=== PATIENT | female | born 1980 | race Caucasian/White ===

== ENCOUNTER 2024-04-17 14:00 | Outpatient (OUT) | payer MEDICAID, SELFPAY ==
[2024-04-17 14:32] LABS: Basophils Absolute Auto 0.1 10^3/uL (0.0-0.1); Eosinophils Percent Auto 0.4 % (0.9-7.0); Hematocrit 39.1 % (36.0-48.0); Hemoglobin 12.9 g/dL (12.0-16.0); Immature Granulocytes Abs Auto 0.01 10^3/uL (0.00-0.03); Immature Granulocytes Pct Auto 0.1 % (0.0-0.5); Lymphocytes Absolute Auto 1.5 10^3/uL (1.2-3.8); Mean Corpuscular Hemoglobin 33.1 pg (26.7-34.0); Mean Corpuscular Volume 100.3 fL (81.0-99.0); Mean Platelet Volume 10.4 fL (9.5-13.5); Monocytes Absolute Auto 0.5 10^3/uL (0.3-0.8); Neutrophils Absolute Auto 4.7 10^3/uL (1.4-6.5); Neutrophils Percent Auto 69.5 % (43.0-75.0); Platelet Count 308 10^3/uL (150-450); White Blood Count 6.7 10^3/uL (4.0-11.0)
[2024-04-17 15:44] LABS: Estimated Average Glucose 100 mg/dL; Glycohemoglobin A1C 5.1 % (4.5-6.2)
[2024-04-17 16:05] LABS: Alanine Aminotransferase 19 U/L (14-59); Albumin Level 3.8 g/dL (3.4-5.0); Alkaline Phosphatase 83 U/L (46-116); Anion Gap 12.8; Aspartate Amino Transferase 22 U/L (15-37); BUN Creatinine Ratio 6.6; Bilirubin Total 0.4 mg/dL (0.2-1.0); Chloride 100 mmol/L (98-107); Chol HDL Ratio 4.8; Cholesterol 182 mg/dL (<=200); Estimated GFR (African America >60 (>=60); Estimated GFR (Non-African Ame >60 (>=60); Globulin 3.8 g/dL; Glucose 96 mg/dL (74-106); HDL Cholesterol 38 mg/dL (40-60); Potassium 3.8 mmol/L (3.5-5.1); Sodium 136 mmol/L (136-145); Total Protein 7.6 g/dL (6.4-8.2); Triglycerides 132 mg/dL (<=150); VLDL CHOLESTEROL 26.4 mg/dL
== END 2024-04-17 14:01 | disposition home or self-care (01) ==
LOC: LAB 14:07
DX: Z00.00 Encounter for general adult medical examination without abnormal findings (principal)
CPT/HCPCS: 36415; 80053; 80061; 83036; 84443; 85025

== ENCOUNTER 2024-11-10 09:31 | Outpatient (OUT) | payer MEDICAID, MEDICARE, SELFPAY ==
--- OUTSIDE RECORDS SUMMARY | 2024-11-10 09:37 | XMS_ITS | CCD ---
Author Organization [facility] Care Team Providers Care Career Law Clerk Name Role Phone JANETJANIS BRAVO Referring Unavailable PROVIDER, UNKNOWN Attending Unavailable PROVIDER, UNKNOWN Admitting Unavailable PROVIDER, UNKNOWN Attending Unavailable PROVIDER, UNKNOWN Admitting Unavailable Bernardo, Carol Unavailable DOUGLAS SAUCEDAIKDaron Neri Admitting Unavailable FAWWAD, TORRES H Attending Unavailable FAWWAD, TORRES H Primary Care Unavailable FAWWAD, TORRES H Admitting Unavailable FAWWAD, TORRES H Attending Unavailable FAWWAD, TORRES H Primary Care Unavailable DR YUDY MATOS V Consulting Unavailable FAWWAD, TORRES H Consulting Unavailable FAWWAD, TORRES H Admitting Unavailable FAWWAD, TORRES H Attending Unavailable DR EVAN SOLOMON Consulting Unavailable FAWWAD, TORRES H Consulting Unavailable OLEXA, CAROL Admitting Unavailable OLEXA, CAROL Attending Unavailable FAWWAD, TORRES H Primary Care Unavailable Johanne Enriquez CNP Primary Care Provider Shaikh Sauceda MD Primary Care Provider Michael Mulligan MD Primary Care Provider Ab SUPERVISOR FISH HATCHERY, Damir Unavailable [phone] Shaikh Sauceda MD Unavailable DAMIR BERGER Attending UnavailOSVALDO Ferrari Attending Unavailable SHAIKH SAUCEDA Attending Unavailable DAMIR BERGER Attending UnavailDAMIR Murray Referring UnavailDAMIR Murray Attending Unavailloyd e Ab SUPERVISOR FISH HATCHERYDamir Unavailable Johanne Enriquez CNP Primary Care Provider JOHANNE ENRIQUEZ Primary Care Unavailable JOHANNE ENRIQUEZ Primary Care Unavailable JOHANNE ENRIQUEZ Primary Care Unavailable Allergies Allergy Classification Reported Allergen(s) Allergy Type Date of Onset Reaction(s) Facility (10 sources) diazePAM; Translations: [DIAZEPAM] Drug Allergy 2 Other: See Comments, Unknown [facility] (20 sources) Methylphenidate; Translations: [METHYLPHENIDATE ] Drug Allergy 3 Unknown [facility] (8 sources) Metoclopramide; Translations: [METOCLOPRAMIDE] Drug Allergy 2 Other: See Comments, Unknown [facility] (20 sources) Morphine; Translations: [MORPHINE] Drug Allergy 3 Other: See Comments [facility] (7 sources) Methylphenidate; Translations: [METHYLPHENIDATE ANALOGUES] Drug Allergy 3 Other: See Comments [facility] Medications Current Medications Medication Drug Class(es) Dates Sig (Normalized) Sig (Original) acyclovir 400 mg oral tablet (20 sources) Herpesvirus Nucleoside Analog DNA Polymerase Inhibitor, Herpes Simplex Virus Nucleoside Analog DNA Polymerase Inhibitor, Herpes Zoster Virus Nucleoside Analog DNA Polymerase Inhibitor Start: 11-04-2024 acyclovir (Zovirax) 400 MG tablet Take 400 mg by mouth in the morning and 400 mg at noon and 400 mg in the evening and 400 mg before bedtime. 11/04/2024 Active Start: 05-23-2021 take 1 tablet by poppy th twice daily acyclovir (ZOVIRAX) 400 mg tablet Take 1 tablet by mouth twice daily. 180 tablet 3 05/23/2021 Active End: 11-04-2024 take 1 tablet by mouth five times daily acyclovir (ZOVIRAX) 400 mg tablet Take 1 tablet by mouth five times a day. 11/04/2024 Discontinued Comment on above: Take 1 tablet by poppy th twice daily. amoxicillin 875 mg / clavulanate 125 mg oral tablet (2 sources) Penicillin-class Antibacterial Start: 4 End: 4 take 1 tablet by mouth in the morning amoxicillin-clavu lanate (Augmentin) 875-125 MG tablet Indications: Non-recurrent acute serous otitis media of both ears Take 1 tablet (875 mg) by mouth in the morning and 1 tablet (875 mg) before bedtime. Do all this for 10 days. 20 tablet 05/18/2024 05/28/2024 Active ascorbic acid 1000 mg oral tablet (7 sources) Vitamin C Start: End: take 1 tablet by mouth in the morning ascorbic acid (Vitamin C) 1000 MG tablet Take 1,000 mg by mouth in the morning. 10/31/2024 11/14/2024 Active baclofen 10 mg oral tablet (14 sources) gamma-Aminobutyric Acid-ergic Agonist Start: End: take 1 tablet by mouth in the morning, then take 1 tablet by mouth in the evening, then take 1 tablet by mouth at bedtime baclofen (Lioresal) 10 MG tablet Indications: Spastic diplegic cerebral palsy (CMS/HCC) Take 1 tablet (10 mg) by mouth in the morning and 1 tablet (10 mg) in the evening and 1 tablet (10 mg) before bedtime. 90 tablet 2 10/27/2024 11/26/2024 Active Start: 09-22-2022 take 1 tablet by poppy three times daily baclofen (LIORESAL) 20 mg tablet Take 1 tablet by mouth three times daily. 90 tablet 2 09/22/2022 Active End: 09-22-2022 take 10 mg by mouth three times daily BACLOFEN ORAL Take 10 mg by mouth three times daily. 0 09/22/2022 Discontinued Baclofen Active Comment on above: Take 1 tablet by poppy th three times daily. Take 10 mg by mouth three times daily. Beta Carotene (6 sources) BETA CAROTENE OR AL Take by mouth. Active BETA CAROTENE OR AL Take by mouth. 0 Active Comment on above: Take by mouth. calcium carbonate 1250 mg / cholecalciferol 200 unt oral tablet (6 sources) Vitamin D Start: take 1 tablet by mouth twice daily guyndur-bebabahqf-uzvkn in D3 500 mg(1,250mg) -200 unit per tablet Take 1 tablet by mouth twice daily. 04/30/2020 Active Comment on above: Take 1 tablet by popyp twice daily. carbamide peroxide 65 mg/ml otic solution (2 sources) Start: 024 End: carbamide peroxide (Debrox) 6.5 % otic solution Indications: Impacted cerumen of right ear Administer 3-5 drops into affected ear(s) in the morning and 3-5 drops before bedtime. Do all this for 4 days. 15 mL 04/22/2024 04/26/2024 Active celecoxib 200 mg oral capsule (11 sources) Nonsteroidal Anti-inflammatory Drug Start: End: take 1 capsule by mouth twice daily as needed for pain celecoxib (CeleBREX) 200 MG capsule Indications: Acquired spondylolisthesis of lumbosacral region Take 1 capsule (200 mg) by mouth 2 (two) times a day as needed for mild pain Do not exceed 400mg in 24 hours. Take with food 60 capsule 1 10/02/2024 12/01/2024 Active Diaper,Brief, Adult,Disposable (DEPEND EASY FIT UNDERGARMENTS) (6 sources) Start: Diaper,Brief, Adult,Disposable (DEPEND EASY FIT UNDERGARMENTS) 1 Package by MISCELLANEOUS route as needed. 07/11/2020 Active Start: 07-11-2020 Diaper,Brief, Adult,Disposable (DEPEND EASY FIT UNDERGARMENTS) 1 Package by MISCELLANEOUS route as needed. 0 07/11/2020 Active Comment on above: 1 Package by MISCELL ANEOUS route as needed. erythromycin 0.005 mg/mg ophthalmic ointment (8 sources) Macrolide, Macrolide Antimicrobial Start: 11-02-19 End: 11-07-19 erythromycin (Romycin) 5 MG/GM ophthalmic ointment Apply 1 Application to affected eye(s) at bedtime 11/06/2024 Active fluticasone propionate 0.05 mg/actuat metered dose nasal spray (20 sources) Corticosteroid Start: 09-27-19 End: 10-02-19 take 2 spray(s) nasal route once daily fluticasone (Flonase) 50 MCG/ACT nasal spray Indications: Non-seasonal allergic rhinitis, unspecified trigger Administer 2 sprays into each nostril Daily Shake gently. Before first use, prime pump. After use, clean tip and replace cap. 16 g 3 10/02/2024 Active Start: 04-04-2024 End: 09-27-2024 take 2 spray(s) nasal route once daily fluticasone (Flonase) 50 MCG/ACT nasal spray Indications: Non-seasonal allergic rhinitis, unspecified trigger Use 2 spray(s) in each nostril once daily 16 g 3 07/15/2024 09/27/2024 Discontinued (Reorder) Start: 04-24-2023 take 2 spray(s) nasa l route once daily fluticasone (Flonase) 50 MCG/ACT nasal spray USE 2 SPRAY(S) IN EACH NOSTRIL ONCE DAILY 0 04/24/2023 Active Start: 10-12-2020 take 2 spray(s) nasa l route once daily fluticasone (FLONASE) 50 mcg/actuation nasal spray Use 2 Sprays in each nostril once daily. 10/12/2020 Active Comment on above: Use 2 Sprays in each nostril once daily. food supplemt, lactose-reduced (BOOST HIGH PROTEIN) 0.06 gram- 1 kcal/mL liqd (4 sources) Start: 02-19-2021 food supplemt, lactose-reduced (BOOST HIGH PROTEIN) 0.06 gram- 1 kcal/mL liqd Take by mouth. 02/19/2021 Active gabapentin 400 mg oral capsule (20 sources) Anti-epileptic Agent Start: 02-24-2023 End: 11-01-2024 take 1 capsule by mouth in the morning, then take 1 capsule by mouth in the evening, then take 1 capsule by mouth at bedtime gabapentin (Neurontin) 400 MG capsule Indications: Spastic diplegic cerebral palsy (CMS/HCC) Take 1 capsule (400 mg) by mouth in the morning and 1 capsule (400 mg) in the evening and 1 capsule (400 mg) before bedtime. 90 capsule 10/02/2024 Active Start: 09-22-2022 End: 12-21-2022 take 1 capsule by mouth three times daily gabapentin (NEURONTIN) 400 mg capsule Take 1 capsule by mouth three times daily for 90 days. 90 capsule 2 09/22/2022 12/21/2022 Active End: 09-22-2022 take 1 capsule by mouth three times daily gabapentin (NEURONTIN) 300 mg capsule Take 300 mg by mouth three times daily. 0 09/22/2022 Discontinued Gabapentin Activ e Comment on above: Take 1 capsule by [facility] three times daily for 90 days. Take 300 mg by mouth three times daily. Take 1 capsule by [facility] three times daily for 180 days. hydrOXYzine hydrochloride 25 mg oral tablet (8 sources) Antihistamine Start: 10-02-19 End: 11-02-19 take 1 tablet by mouth once hydrOXYzine HCl (Atarax) 25 MG tablet Indications: Anxiety Take 1 tablet (25 mg) by mouth every 12 (twelve) hours if needed for anxiety 60 tablet 10/02/2024 Active Start: 10-02-2024 End: 11-01-2024 hydrOXYzine HCl (ATARAX) 25 mg tablet Take 25 mg by mouth. 10/02/2024 11/01/2024 Active loratadine 10 mg oral tablet (20 sources) Start: 09-13-2020 End: 06-29-2025 take 1 tablet by mouth once daily loratadine (Claritin) 10 MG tablet Indications: Seasonal allergic rhinitis due to other allergic trigger Take 1 tablet (10 mg) by mouth Daily 90 tablet 2 10/02/2024 06/29/2025 Active Comment on above: Take 10 mg by mouth once daily. medroxyPROGESTERone acetate 400 mg/ml injectable suspension (6 sources) Progestin medroxyPROGESTER one (DEPO-PROVERA) 400 mg/mL susp Inject 400 mg intramuscularly every 12 weeks. Active Comment on above: Inject 400 mg intram uscularly every 12 weeks. moxifloxacin 5 mg/ml ophthalmic solution (3 sources) Quinolone Antimicrobial Start: 11-06-2024 End: 11-13-2024 moxifloxacin (Vigamox) 0.5 % ophthalmic solution Administer 1 drop into affected eye(s) in the morning and 1 drop at noon and 1 drop in the evening and 1 drop before bedtime. 11/06/2024 11/13/2024 Active Start: 11-06-2024 End: 11-13-2024 take 1 drop(s) into the eye(s) four times daily moxifloxacin (VIGAMOX) 0.5 % ophthalmic solution Use 1 Drop in the left eye four times daily for 7 days. 3 mL 3 11/06/2024 11/13/2024 Active 24 hr oxybutynin chloride 5 mg extended release oral tablet (20 sources) Cholinergic Muscarinic Antagonist Start: 01-17-2024 End: 03-31-2025 take 2 tablets by mouth once daily oxybutynin XL (Ditropan-XL) 5 MG 24 hr tablet Indications: Mixed incontinence Take 2 tablets (10 mg) by mouth Daily 180 tablet 1 10/02/2024 03/31/2025 Active Start: 05-17-2023 take 1 tablet by poppy th every twenty-four hours in the morning oxybutynin XL (Ditropan-XL) 5 MG 24 hr tablet Take 5 mg by mouth in the morning. 0 05/17/2023 Active take 1 tablet by mouth once rogelio y oxybutynin XL (DITROPAN XL) 5 mg 24 hr tablet Take 10 mg by mouth once daily. Active sertraline 100 mg oral tablet (20 sources) Serotonin Reuptake Inhibitor Start: 04-10-2024 End: 12-31-2024 take 1 tablet by mouth once daily sertraline (Zoloft) 100 MG tablet Indications: Depression, unspecified depression type (CMS/HCC) Take 1 tablet (100 mg) by mouth Daily 30 tablet 2 10/02/2024 12/31/2024 Active Start: 01-16-2020 End: 04-03-2024 take 1 tablet by mouth once daily at bedtime sertraline (ZOLOFT) 50 mg tablet Take 50 mg by mouth daily at bedtime. 01/16/2020 Active Comment on above: Take 50 mg by mouth daily at bedtime. thioctic acid 600 mg oral capsule (6 sources) Start: 01-23-2020 take 1 capsule by mouth twice daily Alpha Lipoic Acid 600 mg cap Take 1 capsule by mouth twice daily. 01/23/2020 Active Comment on above: Take 1 capsule by mo [facility] twice daily. tiZANidine 4 mg oral tablet (9 sources) Central alpha-2 Adrenergic Agonist Start: 01-16-2020 End: 09-22-2022 take 1 tablet by mouth once daily at bedtime tiZANidine (ZANAFLEX) 4 mg tablet Take 1 tablet by mouth daily at bedtime. 30 tablet 2 09/22/2022 Active Comment on above: Take 1 tablet by poppy th daily at bedtime. Take 4 mg by mouth d aily at bedtime. Completed/Discontinued Medications Medication Drug Class(es) Dates Sig (Normalized) Sig (Original) cenegermin-bkbj 0.02 mg/ml ophthalmic solution (20 sources) Start: 05-11-2023 End: 11-09-2024 Oxervate 0.002 % ophthalmic solution 05/11/2023 11/09/2024 Discontinued (Therapy completed) methocarbamol 500 mg oral tablet (20 sources) Muscle Relaxant Start: 01-17-2024 End: 10-27-2024 take 1 tablet by mouth in the morning, then take 1 tablet by mouth in the evening, then take 1 tablet by mouth at bedtime, then take 1 tablet by mouth in the morning, then take 1 tablet by mouth in the evening, then take 1 tablet by mouth at bedtime methocarbamol (Robaxin) 500 MG tablet Indications: Lumbar paraspinal muscle spasm Take 1 tablet (500 mg) by mouth in the morning and 1 tablet (500 mg) in the evening and 1 tablet (500 mg) before bedtime. TAKE 1 TABLET BY MOUTH IN THE MORNING AND 1 IN THE EVENING AND 1 BEFORE BEDTIME. 90 tablet 10/02/2024 10/27/2024 Discontinued (Therapy completed) Start: 09-20-2023 take 1 tablet by poppy th three times daily methocarbamol (Robaxin) 500 MG tablet Indications: Lumbar paraspinal muscle spasm TAKE 1 TABLET BY MOUTH THREE TIMES DAILY 90 tablet 0 09/20/2023 Active naproxen 500 mg oral tablet (3 sources) Nonsteroidal Anti-inflammatory Drug Start: 06-05-2024 End: 10-02-2024 take 1 tablet by mouth in the morning, then take 1 tablet by mouth at mealtime naproxen (Naprosyn) 500 MG tablet TAKE 1 TABLET BY MOUTH IN THE MORNING AND 1 IN THE EVENING WITH MEALS 06/05/2024 10/02/2024 Discontinued (Therapy completed) Start: 03-01-2023 naproxen (Napr osyn) 500 MG tablet prednisoLONE acetate 10 mg/ml ophthalmic suspension (20 sources) Corticosteroid Start: 12-21-2023 End: 11-09-2024 take 1 drop(s) into the eye(s) once daily prednisoLONE acetate (Pred-Forte) 1 % ophthalmic suspension Administer 1 drop into both eyes Daily 12/21/2023 11/09/2024 Discontinued (Therapy completed) Start: 12-21-2023 take 1 drop(s) into the eye(s) in the morning, then take 1 drop(s) into the eye(s) in the evening, then take 1 drop(s) into the eye(s) at bedtime prednisoLONE acetate (Pred-Forte) 1 % ophthalmic suspension Administer 1 drop into both eyes in the morning and 1 drop in the evening and 1 drop before bedtime. 12/21/2023 Active Start: 04-24-2021 prednisoLONE a cetate (PRED FORTE) 1 % ophthalmic suspension Use 1 Drop in the left eye four times daily. Start after surgery. 1 Bottle 2 04/24/2021 Active Start: 04-24-2021 prednisoLONE a cetate (PRED FORTE) 1 % ophthalmic suspension Use 1 Drop in the left eye four times daily. Start after surgery. 1 Bottle 2 04/24/2021 Active take 1 drop(s) into the eye(s) once daily prednisoLONE Acetate 1 % INSTILL 1 DROP INTO LEFT EYE ONCE DAILY Ophthalmic for 90 Days Active Comment on above: Use 1 Drop in the le ft eye four times daily. Start after surgery. triamcinolone acetonide 40 mg/ml injectable suspension (2 sources) Corticosteroid Start: 06-25-2022 Kenalog-40 May, 40 mg valACYclovir 1000 mg oral tablet (6 sources) Herpesvirus Nucleoside Analog DNA Polymerase Inhibitor, Herpes Simplex Virus Nucleoside Analog DNA Polymerase Inhibitor, Herpes Zoster Virus Nucleoside Analog DNA Polymerase Inhibitor Start: 10-31-2024 End: 11-14-2024 valACYclovir (Valtrex) 1 g tablet Take 1,000 mg by mouth in the morning and 1,000 mg at noon and 1,000 mg in the evening. 10/31/2024 11/09/2024 Discontinued (Therapy completed) Start: 10-31-2024 End: 11-14-2024 take 1 tablet by mouth three times daily valACYclovir (VALTREX) 1 gram tablet Take 1 tablet by mouth three times a day for 14 days. 42 tablet 10/31/2024 11/04/2024 Discontinued Problems Active Problems Problem Classification Problem Date Documented Date Episodic/Chronic Anxiety disorders (20 sources) Anxiety; Translations: [Anxiety disorder, unspecified] Onset: 04-17-2020 04-17-2020 Chronic Blindness and vision defects (1 source) Unspecified visual loss; Translations: [Decreased visual acuity] Onset: 10-31-2024 Chronic Blindness and vision defects (1 source) Other visual disturbances; Translations: [Blurry vision, left eye] Onset: 10-31-2024 Episodic Cataract (20 sources) Nuclear sclerosis; Translations: [Age-related nuclear cataract, left eye] Onset: 04-17-2020 04-17-2020 Chronic Disorders of lipid metabolism (20 sources) Mixed hyperlipidemia; Translations: [Mixed hyperlipidemia] Onset: 09-14-2020 12-11-2020 Chronic Epilepsy; convulsions (20 sources) Absence seizure; 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, not intractable, without status epilepticus] Onset: 09-14-2020 Resolved: 11-09-2024 04-13-2023 Chronic Genitourinary symptoms and ill-defined conditions (20 sources) Urge incontinence of urine; Translations: [Urge incontinence] Onset: 01-17-2024 01-17-2024 Chronic Mood disorders (20 sources) Depressive disorder; Translations: [Depression] Onset: 04-17-2020 Resolved: 11-09-2024 04-17-2020 Chronic Nervous system congenital anomalies (20 sources) Colpocephaly; 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] Onset: 04-13-2023 04-13-2023 Chronic Nutritional deficiencies (20 sources) Deficiency of macronutrients; Translations: [Unspecified severe protein-calorie malnutrition] Onset: 01-17-2024 01-17-2024 Chronic Other congenital anomalies (20 sources) Acrobrachycephaly; 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] Onset: 09-14-2020 12-11-2020 Chronic Other congenital anomalies (20 sources) Hypertelorism; 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] Onset: 04-13-2023 04-13-2023 Chronic Other connective tissue disease (5 sources) Other enthesopathies, not elsewhere classified; Translations: [OTHER ENTHESOPATHIES NEC] Onset: 06-30-2022 Episodic Other connective tissue disease (1 source) Enthesopathy, unspecified; Translations: [ENTHESOPATHY UNSPECIFIED] Onset: 06-08-2022 Episodic Other eye disorders (2 sources) Corneal melting disorder; 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, left eye] 11-01-2024 Episodic Other eye disorders (1 source) Other specified disorders of cornea, left eye; Translations: [Corneal thinning of left eye] Onset: 10-31-2024 Episodic Other nervous system disorders (1 source) Tremor; Translations: [Tremor, unspecified] Episodic Other non-traumatic joint disorders (6 sources) Pain in right shoulder; Translations: [PAIN IN RIGHT SHOULDER] Onset: 06-04-2022 Episodic Other non-traumatic joint disorders (1 source) Pain of joint of bilateral lower legs; Translations: [Pain in right knee] Episodic Other nutritional; endocrine; and metabolic disorders (20 sources) Underweight; Translations: [Underweight] Onset: 09-14-2020 12-11-2020 Episodic Other upper respiratory disease (20 sources) Seasonal allergy; Translations: [Other seasonal allergic rhinitis] Onset: 09-14-2020 12-11-2020 Chronic Other upper respiratory disease (20 sources) Allergic rhinitis; Translations: [Allergic rhinitis, unspecified] Onset: 05-31-2023 05-31-2023 Chronic Other upper respiratory disease (4 sources) Seasonal allergic rhinitis; Translations: [Other allergic rhinitis] 04-25-2024 Chronic Paralysis (20 sources) Diplegic cerebral palsy; Translations: [Spastic diplegic cerebral palsy] Onset: 04-13-2023 Resolved: 11-09-2024 04-13-2023 Chronic Spondylosis; intervertebral disc disorders; other back problems (20 sources) Lumbar spondylosis; Translations: [Spondylosis without myelopathy or radiculopathy, lumbar region] Onset: 04-13-2023 04-13-2023 Chronic Sprains and strains (1 source) Superior glenoid labrum lesion of right shoulder, initial encounter; Translations: [SUP GLND LABRUM LES RT SHLDR INIT] Onset: 06-08-2022 Episodic Substance-related disorders (20 sources) Smoker; Translations: [Nicotine dependence, unspecified, uncomplicated] Onset: 04-17-2020 Resolved: 12-11-2020 04-17-2020 Chronic Past or Other Problems Problem Classification Problem Date Documented Date Episodic/Chronic Epilepsy; convulsions (20 sources) Seizure; Translations: [Unspecified convulsions] Onset: 04-17-2020 Episodic Mood disorders (2 sources) Mood disorders Onset: 11-09-2024 11-09-2024 Other acquired deformities (20 sources) Acquired spondylolisthesis; Translations: [Spondylolisthesis, lumbosacral region] Onset: 05-31-2023 05-31-2023 Episodic Other bone disease and musculoskeletal deformities (20 sources) Osteopenia; Translations: [Other specified disorders of bone density and structure, unspecified site] Onset: 04-17-2020 04-17-2020 Episodic Other connective tissue disease (20 sources) Gross motor impairment; Translations: [Other symptoms and signs involving the nervous system] Onset: 09-14-2020 12-11-2020 Episodic Other ear and sense organ disorders (20 sources) Impacted cerumen in right ear; Translations: [Impacted cerumen, right ear] Onset: 04-10-2024 04-10-2024 Episodic Other female genital disorders (20 sources) Cervical intraepithelial neoplasia grade 1; Translations: [Mild cervical dysplasia] Onset: 05-31-2023 05-31-2023 Episodic Other nervous system disorders (20 sources) Antalgic gait; Translations: [Other abnormalities of gait and mobility] Onset: 04-17-2020 04-17-2020 Episodic Other screening for suspected conditions (not mental disorders or infectious disease) (20 sources) Patient encounter status; Translations: [Encounter for screening mammogram for malignant neoplasm of breast] Onset: 04-10-2024 04-10-2024 Episodic Otitis media and related conditions (18 sources) Otitis media of bilateral ears; Translations: [Otitis media, unspecified, bilateral] Onset: 05-18-2024 05-18-2024 Episodic Residual codes; unclassified (20 sources) Statin declined; Translations: [Procedure and treatment not carried out because of patient's decision for unspecified reasons] Onset: 09-14-2020 12-11-2020 Episodic Spondylosis; intervertebral disc disorders; other back problems (20 sources) Spasm of muscle of lower back; Translations: [Muscle spasm of back] Onset: 04-13-2023 04-13-2023 Episodic Results Test Name Value Interpretation Reference Range Facility [facility] 11-04-2024 [facility] Telephone ([facility]) MICHELLE STANLEY ([id number]) 1980 F Date Time Provider Department 11/04/24 PEPITO HERNANDEZ During your visit today, we recorded the following information about you: Pepito Hernandez MD 11/04/2024 1:21 PM Signed Received page that patient had called. Spoke to them on the phone at 1:14 PM. 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 ERI 11/01/24 where temporary tarsorrhaphy was placed and she was started on valtrex 1g BID. Has had vomiting, and GI upset since. Plan to switch to acyclovir 400mg QID Return precautions given. Discussed that if any significant change in symptoms, worsening vision, pain or new symptoms, please call back or go to the emergency room. Pepito Hernandez MD Ophthalmology Resident Allergies As of Date: 11/04/2024 Noted Allergy Reaction DIAZEPAM 09/24/2021 14 - Other: See Comments METOCLOPRAMIDE 09/24/2021 14 - Other: See Comments MORPHINE 04/15/2013 14 - Other: See Comments Comments: insomnia RITALIN (METHYLPHENIDATE ANALOGUE*04/15/2013 14 - Other: See Comments Comments: hyperactive Date Reviewed: 11/01/2024 Reviewed by: Leo Mendenhall OA - Fully Assessed Order(s):acyclovir (ZOVIRAX) 400 mg tabletTake 1 tablet by mouth four times daily.Disp: 120 tabletRfl: 2 Prescriptions as of 11/04/2024 - acyclovir (ZOVIRAX) 400 mg tablet Take 1 tablet by mouth four times daily. - celecoxib (CELEBREX) 200 mg capsule Take 200 mg by mouth. - food supplemt, lactose-reduced (BOOST HIGH PROTEIN) 0.06 gram- 1 kcal/mL liqd Take by mouth. - oxybutynin XL (DITROPAN XL) 5 mg 24 hr tablet Take 10 mg by mouth once daily. - erythromycin (ROMYCIN) 5 mg/gram (0.5 %) ophthalmic ointment Use 1 application in the left eye daily at bedtime. - Ascorbic Acid (VITAMIN C) 1,000 mg tablet Take 1 tablet by mouth once daily for 14 days. - gabapentin (NEURONTIN) 400 mg capsule Take 1 capsule by mouth three times daily for 180 days. - baclofen (LIORESAL) 20 mg tablet Take 1 tablet by mouth three times daily. - tiZANidine (ZANAFLEX) 4 mg tablet Take 1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 capsular staining, left eye - ORTHOPEDICS SURGERY HX FAMILY HISTORY Problem Relation Age of Onset - No Ocular Disease No Family History Social History Tobacco Use - Smoking status: Every Day Current packs/day: 1.00 Types: Cigarettes - Smokeless tobacco: Never Vaping Use - Vaping status: Never Used Substance and Sexual Activity - Alcohol use: No - Drug use: Yes Types: Marijuana - Sexual activity: Not on file Comment: not asked ALLERGIES Allergen Reactions - Morphine Other: See Comments insomnia - Ritalin [Methylphen* Other: See Comments hyperactive Review of Systems Constitutional: Negative for chills and fever. Eyes: Positive for visual disturbance. Negative for discharge. Gastrointestinal: Negative for nausea and vomiting. Neurological: Negative for headaches. Physical Exam Vitals [10/31/24 1626] BP Pulse Temp Temp src Resp SpO2 Weight Height 135/82 (!) 97 36.8 ?C (98.2 ?F) Temporal 18 98 % -- -- Physical Exam Vitals and nursing note reviewed. Constitutional: General: She is not in acute distress. Appearance: She is not ill-appearing, toxic-appearing or diaphoretic. HENT: Right Ear: Tympanic membrane and ear canal normal. Left Ear: Tympanic membrane and ear canal normal. Eyes: Pupils: Left eye: Fluorescein uptake present. Comments: Left eye with cloudy haze covering cornea. Partially visualized pupil. No rashes to skin surrounding eyes. Cardiovascular: Rate and Rhythm: Normal rate and regular rhythm. Heart sounds: Normal heart sounds. Pulmonary: Effort: Pulmonary effort is normal. Breath sounds: Normal breath sounds. Neurological: Mental Status: She is alert. Psychiatric: Mood and Affect: Mood normal. Behavior: Behavior normal. Diagnostic Testing ED Labs Ordered and Reviewed - No data to display Procedures ED Course / Clinical Impression ED Course as of 10/31/242131 Others' Documentation WedOct 31, [id number] CBC + DIFF(!): WBC 6.60 RBC 3.61(!) Hemoglobin 12.2 Hematocrit 35.4(!) MCV 98.1 MCH 33.8 MCHC 34.5 RDW-CV 13.2 Platelet Count 278 MPV 9.8 Neut% 54.3 Abs Neut (ANC) 3.59 Lymph% 35.2 Abs Lymph 2.32 Callaway% 6.4 Abs Callaway 0.42 Eosin% 2.3 Abs Eosin 0.15 Baso% 1.5 Abs Baso 0.10 Immature Gran % 0.3 IMMATURE GRANS (ABS) <0.03 NRBC 0.0 Absolute nRBC <0.01 DTYPE Auto [JR] ED Course User Index [JR] Isra Bautista PA-C Clinical Impressions as of 10/31/242131 Blurry vision, left eye Decreased visual acuity Corneal thinning of left eye MDM / Disposition / Plan Near vision 20/20 OD and OU. Unable to read chart OS. Able to see colors and make out shapes OS. Due to sxs, hx, and presentation Ophthalmology was consulted. Appreciate evaluating pt in the ED. Medication recommendations of vitamin c and changing acyclovir to valtrex were made. Interactions with pt's other medicine reviewed and she reports she does not take tizanidine. Pt without acute lab abnormalities. Additional labs pending. Pt will follow up with the [facility]. Pt educated to return to ED immediately with new or worsening symptoms. History and Record Review Clinical information obtained from an independent historian. History obtained from or confirmed by: parent. External record(s) reviewed: other (see comments). Findings from review of other records: medical hx reviewed Different (more content not included)... Normal [facility] ED Triage Noteon 10-31-2024 ED Triage Note HNO ID: [id number] Author: TJ AGUILERA MD Service: Emergency Medicine Author Type: Physician Type: ED Triage Notes Filed: 10/31/2024 16:29 Note Text: ED TRIAGE PROVIDER NOTE Patient Name: Michelle Stanley Service Date: 10/31/24 BRIEF HPI: This is a 44 year old female who presents to the ED with: concern for L eye herpetic outbreak, + pain/blurry Sent by eye doctor BRIEF EXAM: NAD Awake and Alert Non labored breathing INITIAL WORKUP AND DECISION MAKING: Orders Placed This Encounter No orders of the defined types were placed in this encounter. 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 Performed By: #### H SVG12 #### [facility] CLIA [id number] [address] [place] [address] [place] HSV IGG 2 QUALITATIVE Negative Normal Negative [facility] Comment on above: Order Comment: Speci men Type: BLOOD SPECIMEN Ordering Facility: [facility] Address: [address] [place] [address] Result Comment: No e vidence of past history of HSV-2 infection. Negative result cannot exclude HSV-2 infection if the specimen collected 4-6 weeks after a primary episode of HSV-2 infection. Early institution of antiviral agents may delay or abrogate specific humoral response. Performed By: #### H SVG12 #### [facility] CLIA [id number] [address] [place], [place] [address] [place] BI MAMMOGRAM SCREENING TOMOS YNTHESIS BILATERALon 05-05-2024 BI MAMMOGRAM SCREENING TOMOSYNTHESIS BILATERAL This is a summary report. The complete report is available in the patient's medical record. If you cannot access the medical record, please contact the sending organization for a detailed fax or copy. Examination: BI MAMMOGRAM SCREENING TOMOSYNTHESIS BILATERAL Clinical History: Breast cancer screening by mammogram Technique: Screening digital mammography study of both breasts was performed with 2-D and 3-D tomosynthesis imaging. No prior studies available for comparison. Findings: The breast tissue is heterogeneously dense bilaterally. There is no evidence of dominant spiculated mass, grouped microcalcifications or skin thickening which would be suggestive of malignancy. Increased density in the lateral aspect of the right breast felt to be related to dense fibroglandular tissue. A few benign-appearing calcifications are seen bilaterally. IMPRESSION: Impression: No specific evidence of malignancy seen in either breast. Increased density lateral aspect of the right breast felt to be related to dense fibroglandular tissue. Diagnostic mammogram study of the right breast in 6 months is recommended to assess stability. BI-RADS 3 Breast Density: The breasts are heterogeneously dense, which may obscure small masses BiRads: BIRADS 3 - Probably Benign Recommended follow-up: Short Interval Follow-up. Follow-up diagnostic mammogram study of the right breast in 6 months. ELECTRONICALLY SIGNED BY: Charles Torres M.D. Normal Not Available MRI SHOULDER RT WO CONon MRI SHOULDER RT WO CON EXAMINATION: MRI SHOULDER RT WO CON HISTORY: Pain of right shoulder joint COMPARISON: No relevant comparison available. TECHNIQUE: A variety of imaging planes and parameters were utilized for visualization of suspected pathology. Imaging was performed without contrast. FINDINGS: ROTATOR CUFF REGION CUFF TENDONS: Moderately increased signal intensity in the supraspinatus and subscapularis tendons indicates tendon degeneration and/or tendinitis. No teresa tear is seen. CUFF MUSCLES: Diffuse increase signal in the supraspinatus and infraspinatus muscles DELTOID: Normal. No significant atrophy or tear. LONG BICEPS TENDON: Normal. No abnormal signal, attrition, or tear. LABRUM/BICEPS ANCHOR SUPERIOR: Increased signal and fraying of the superior labrum without visible detachment from the glenoid rim. No visible detachment of the labrum or biceps tendon from the glenoid rim. Findings are most consistent with a Type I SLAP lesion. ANTERIOR/INFERIOR: Normal. No visible tear or attrition. POSTERIOR: Normal. No posterior labrum abnormality. CAPSULE Normal. No visible capsular laxity or thickening. AC JOINT REGION AC JOINT: Normal acromioclavicular joint. AC LIGAMENTS: Normal acromioclavicular ligament. CC LIGAMENTS: Normal coracoclavicular ligaments. ACROMION: Normal horizontal (Type I) configuration. SUBACROMIAL BURSA: Mild effusion. HYALINE CARTILAGE: Normal. No visible cartilage narrowing or focal defect. OTHER BONES: Normal proximal humerus, glenoid, and coracoid. OTHER OBSERVATIONS: Negative. No other significant findings or glenohumeral effusion. IMPRESSION: Moderate rotator cuff tendinitis Type I SLAP lesion of the labrum Edema signal in the supraspinatus and infraspinatus muscles Electronically authenticated by: YUDY MATOS Date: 2022-06-04 19:03 Normal [facility] Patient Instructionson 09-24 Regional Operations Director Authentication Interface Message Text Manage your symptoms with the medications provided. If pain is not improving in 1 week follow up with PM and R for additional testing. Patient Education Patient Education Shoulder Pain Discharge Instructions About this topic Your shoulder joint is made of 3 bones. These are the upper arm bone, the shoulder blade, and the collarbone. The shoulder is a ball and socket joint. The ball part of the joint is the top part of your upper arm bone. The socket part of your joint is a cup shaped indentation in your shoulder blade. Because of this, the shoulder can move in many ways. Strong bands of tissue called ligaments help hold the shoulder in place. Muscles and tendons also hold it in place. You can have pain in your shoulder for many reasons. It may be hard for the doctor to tell exactly where the pain is coming from. You can have pain in your muscles, bones, or joints. It can also happen in your tendons and ligaments which connect these together. Causes of this kind of pain may include: ??? Overuse or using muscles in the same way over and over ??? Trauma from falls, accidents, direct blows to muscles, and injuries such as bone breaks, sprains, or dislocations ??? Strain on your muscles from bad posture What care is needed at home? Ask your doctor what you need to do when you go home. Make sure you ask questions if you do not understand what the doctor says. This way you will know what you need to do. ??? Rest. Allow your injury to heal before you do slow movements. ??? Place an ice pack or a bag of frozen peas wrapped in a towel over the painful part. Never put ice right on the skin. Do not leave the ice on more than 10 to 15 minutes at a time. ??? Prop your arm on pillows to help with swelling. ??? Your doctor may want you to use a sling, strap, or sleeve to keep your shoulder from moving. ??? Heat may be used but not right after an injury. Heat can make swelling worse. If your doctor tells you to use heat, put a heating pad on your shoulder for no more than 20 minutes at a time. Never go to sleep with a heating pad on as this can cause hall. ??? Do range of motion exercises as your therapist or doctor teaches you to do. As your shoulder heals, you will be given more exercises to stretch and strengthen your shoulder. What follow-up care is needed? Your doctor may ask you to make visits to the office to check on your progress. Be sure to keep all these visits. ??? Your doctor may send you to physical therapy or occupational therapy to help you regain use of your shoulder sooner. What drugs may be needed? The doctor may order drugs to: ??? Help with pain and swelling The doctor may give you a shot of an anti-inflammatory drug called a corticosteroid. This will help with swelling. Talk with your doctor about the risks of this shot. Will physical activity be limited? Your doctor may ask you to rest and limit your activity. Based on how bad your shoulder injury is, this could last for a few days to a number of weeks. What can be done to prevent this health problem? Stay active and work out to keep your muscles strong and flexible. ??? Warm up slowly and stretch your muscles before you work out. Do not work out if you are overly tired. Take extra care if working out in cold weather. ??? Slowly increase the amount of time you work out. If you are using weights, slowly increase the weight to strengthen your muscles. ??? Wear protection when playing sports. ??? Take breaks often when doing things that use repeat movements. When do I need to call the doctor? Pain or swelling gets worse ??? Hand feels cold or numb ??? You are not feeling better in 2 or 3 days or you are feeling worse Teach Back: Helping You Understand The Teach Back Method helps you understand the information we are giving you. The idea is simple. After talking with the staff, tell them in your own words what you were just told. This helps to make sure the staff has covered each thing clearly. It also helps to explain things that may have been a bit confusing. Before going home, make sure you are able to do these: ??? I can tell you about my condition. ??? I can tell you what may help ease my pain. ??? I can tell you what I will do if I have more pain or swelling or my fingers are cool or blue. Where can I learn more? [employer] http://familydoctor.org /familydoctor/en/preven tion-wellness/exercise- fitness/inj ury-rehab/shoulder-pain .html [employer] http://orthoinfo.aaos.o rg/PDFs/Z53576.pdf Last Reviewed Date 2018-03-14 Consumer Information Use and Disclaimer This information is not specific medical advice and does not replace information you receive from your health care provider. This is only a brief summary of general information. It does NOT include all information about conditions, illnesses, injurie (more content not included)... Normal [facility] Progress Noteson 09-24-2021 Regional Operations Director Authentication Interface Message Text Chief complaint Chief Complaint Patient presents with * Shoulder symptoms HPI provided by patient HPI 41 year old female presents to clinic today for a complaint of right shoulder pain after she fell at home. Pt was walking down her back stairs when she slipped and fell down 3 stairs while still holding the doorknob. She was able to steady herself, but feels that the motion put great strain on her right shoulder and now is in a lot of pain. Pt has a gross motor defect and walks with a cane at baseline. Symptoms began 3 days ago and are getting worse Associated symptoms include: Pain with movement Slight swelling Slightly decreased ROM Pain is currently rated as an 8/10 Tender to the touch Review of Systems Constitutional: Negative for chills and fever. Musculoskeletal: Positive for arthralgias. All other systems reviewed and are negative. Patient has tried the following for relief of symptoms- Tylenol (1200mg) which provided mild relief for a short time. No past medical history on file. Allergies Allergen Reactions * Methylphenidate Other hyperactive * Morphine Other insomnia * Reglan [Metoclopramide] * Valium [Diazepam] No family history on file. OBJECTIVE FINDINGS: BP 127/84 Pulse 102 Temp 98 ???F (36.7 ???C) Resp 16 SpO2 100% Physical Exam Constitutional: Appearance: She is underweight. Musculoskeletal: Right shoulder: Tenderness and bony tenderness present. No swelling or crepitus. Decreased range of motion. Normal strength. Normal pulse. Left shoulder: Normal. Neurological: Mental Status: She is alert. Gait: Gait abnormal (pt uses a cane at baseline). Skin: General: Skin is warm and dry. Psychiatric: Mood and Affect: Mood normal. Vitals reviewed. XRAY RESULTS: IMPRESSION: Bony resorption of the distal right clavicle may be correlated with history of underlying rheumatologic disease or Azalea's disease. No acute fracture or dislocation. A/P 1. Acute pain of right shoulder 2. Fall, initial encounter 3. Strain of right shoulder, initial encounter Orders AND Meds Signed During This Encounter * X-ray Shoulder Right (Routine) * PM AND R Referral MS * ketorolac (TORADOL) 30 MG/ML injection * ibuprofen (MOTRIN) 600 MG tablet * tizanidine (ZANAFLEX) 2 MG tablet * lidocaine (XYLOCAINE) 5 % ointment Pt advised to f/u with pm and r, rtc for worsening symptoms or if pain does not respond to treatment. 1. See visit diagnoses, disposition, and orders. 2. Reviewed and updated medication list; Discussed probable diagnosis, test results if available in office today and management options with patient/guardian: agreed to the medical plan above 3. Education provided regarding visit today, see after visit summary. 4. Prevention and health maintenance with primary care provider. 5. Patient/guardian educated to return to office or proceed to ED with worsening of condition, changes, or failure to improve. Janis Tomashefski, PHYSICIAN NON INVASIVE CARDIOLOGIST-CONTROLS OPERATOR [employer] Normal [facility] XR SHOULDER RIGHT MINIMUM 2 VIEWSon 09-24-2021 XR SHOULDER RIGHT MINIMUM 2 VIEWS EXAMINATION: XR SHOULDER RIGHT MINIMUM 2 VIEWSPRO/RT CLINICAL HISTORY: Reason for Exam: Shoulder pain, right; pain after fall ASSOCIATED DIAGNOSIS: Acute pain of right shoulder TECHNOLOGISTS NOTE: COMPARISON: None FINDINGS: Widening of the acromioclavicular articulation likely related to bony resorption. Acromioclavicular relationship is maintained. There is no acute fracture, dislocation, or periosteal reaction. Glenohumeral joint space is normal. IMPRESSION: Bony resorption of the distal right clavicle may be correlated with history of underlying rheumatologic disease or Azalea's disease. No acute fracture or dislocation. XR SHOULDER RIGHT MINIMUM 2 VIEWS MACRO: None Normal [facility] Coding Summary.on 07-16-2021 Coding Summary. CD:[id number] Gh0 bWw+PGhlYWQ+NO3CBMKwE95 rqUOmfM9CK1hPYT2MJGEJGY CGKR8FCZ9nzYI1UXdxR0Mki iAv BcvgrEXtLW65XTy4QBA3nGs yRHajxX8faGKkR4e8TlUgJZ 05jA39OHerGVViYtP2WjYlm jsgbWFy O2hhVdTiyNWaIbp+PHRhYmx lIHdpZHRoPScxMDAlJyBzdH imRM8vNk1qOFJpNQMdlSmcl HNlOiBj v3hvNRIiGRotUA9gqHehX2O hkSI8EUQyc2l6Pm30fRV+PH AkZBD8kCphCZqsm013CpJtd 0pvQVE4 aFBoAZqhYGI1T46xt0P4TMT kYOBrXBX8cWV0lH5reEjgtk elC2MbdTHdWjS1IEH5uSLkj O2nvEzi jdoffY1hZrg+G87QPG3ZTEQ QDW0LTpk4J3QxMfsbcVB+PC 22AJLoKS94rAHlnILin9ssv Gy5OvXc QCAaTFZ7qObeZCehi3EjCOE iK53jlDXki4O7WEOauSzzrG LrBfFmwUW6cG3nPKxlolvwm 2hvdzsn Ypprj7qwmr61bC86C25sFTc gMFGzPOT9CTIiLMVnfAqewp 3jhZ5uEw5+PSzgv9uyv1vry Eb2PrZx KTWyaaIzyKwpGNR2a3ZsJf8 2J9RouNsrf1NjDfv1nb06uV Uwr1J9jXW6XGeeFKWhkV3sV WxlZnQ6 TTPgBqDdpA08kMPyVJbrHe1 ioXempWkoNZ2iZGAqtemcIE VmrZ3pVRUqzQBfvQztYN2cQ TBpbjtm l451JyBuMYW3YIZypKOfP1G uwA4bGhCbPHUjXSBbL7XtoI RsDXewI620UNuzOlM7YCJuw ePxQ2Zm SLGwwWgvKgL1j8B8Ub3Yr0A krpzaIVI4BPqcDWFqUyB9Zs ZpHqK2A9HeGwa1WQBsnZjyG F4bR1Sa HUWlghkxednjnQL7ZEIsGUD spP92gXXmFKncZj4oe0J1w9 50TQGbYHMfcC70Cj7cdSegZ TBwdCBU nG1fkwyur6jpubnuBqGbCRP aUKm6LTh8AOLeuWjlXrQiQD P1GlH3HGV7lOHuqH3esAuhe mjdaP6g Oyc+O90faE5qEDE3QUS0esw aESNokvMtHE52LA57O0KhJc wvdGFibGU+PGRpdiBzdHlsZ A8gMeDt u7ydz8MnXJehD2NaORSdVDh wGao8XNDpLKY7pQY0vZ9gKI VaTAsqf6R2vJN7J4XncaXgf b7ib6lr YMRhJYfbA58ueCHig5N3LBB ivWX5BFKczUwdTzSlrF69Ue c+JKAxsGkxm2SmNqtao1nsg 9xilBa1 XzVtRAGcdtLusVoiRDI4q6K uFq85O58xMShqUSEqEAQfRY IdKKSadIqdmu0xpW8uYm0+P GNvbCB3 lAQ9fG1mDGHaFaO6KChdR58 3NmTxtXMnUqond2cgv7jxaX a7CfDoZDFfcsGouXiiRYR9l 9ZgRk67 X27rZRvpNCRoXRPfMJLuOMN ijUlnqc4fbC9oGr4+PC9jb2 htjt49oN81zGH+APBrABS3x WxlPSdw VADzrF4xVTfzYbI3PEZcFdR jeA42dIWfJSemKv3naBbsmQ bzAX1vKHPwlqsux419WpGyd 2xkIDEw yBQoDShuHOV2R31gu8T0PPP dKZAkZUM0eET0rF0fmJcbmo ogbGVmdDsgdmVydGljYWwtY YqtQ103 IHRvcDsnPlBhdGllbnQgTmF zZCj9J2WcMaw9AXJbhVioYQ 3nwKHnBUbeLz2yuDqujWpoK C2tQVGb yjzgt233BrAwj6pgABPjcYQ sKBmvLJU7D65hh9E4CVDvII ZqFSF5yAL3nC2bgGrsbyrli GVmdDsg ocRlqAmaGPzbLZxaI795KZU hwUujBsSerdXmZBNneFZ5LJ 12RI77lWMwn1P2tSZ2A0UfS GRpbmct olhhlNH5JYUfOOAriJ82On4 stCreXp6tQCXqBJB3VJQriJ FtH4AoeP7mHmXaTDEjBCLpK 3RleHQt JUbrC258JSosQjE1GRMjecJ eB2IeERLnoTcjMoK8g3S2Ge 4KQ8N6ZL72WK01rZZtq2A0h CL5S5Jk ZSTocullpirfsPW1WBZsPGD xtK16Fk6qiHqpSi5oVUOpVI N7RLFxrHRlS9AufI9pUmHxD DAwMDAw Q7VsrIJeBIydF178KXqfUwM 9KSAstwOcZ0NdLNJbnSzvGo F3g0C1Ze5YIBu8ZG77CN48l VHpx4E9 cGL8J6PwWPMlvaggjwvknZW 5RDIwWZGzuT49Cn6bvLddNb 4wVZEhKDQ0TNIggWLxB7Jnu M5sQdKt XVNcUFZcZ8GdjUWfDGhjM48 9ADjcTuR6BCYxitBuI1FmEX XbhNezTaZ4u2E9Dy4AKIXmC D42DDJ8 jTL6GU29MP71O6UqQhmpaKH ibGU+PHRhYmxlIHdpZHRoPS flYCVbWmWdiAfyOW7jMk2eZ GVyLWNv oYkxxQSsWrEfk8rgLHSjEFz jBO4lpNelY3CzxHP4QMSmq7 m2Xn09Y68cZ1GvzNK+PGNvb KY4dAU2 iZ0sPxBqLjQ0BSrbT418ZqP zhZEgQjgea0mzp5zdmJk4Za M2CFXwfrHchSotWSG9u2KcZ n95S88x IHdpZHRoPSIxNSUiIHZhbGl qck0byB5tEb4+MUEvnID8iY L9cA4lRhSaXzT9TBeqV447V nRvcCIv Xiguk8pmz8aaaSo4ZuFvPOY itkXatXmoMXI5u6LgGb52C1 QvnCnug0CaYsk1vt35wQCco 5G6zXO3 Q4QpBGPfwromdTNotJebHJ9 dZXOjdrxzDDEnmR0aIYLyZ0 r7LrJhKvB2UWohG6HvauI2X DEwcHQg MPbmJOW5E20vn1B5YFEeLYF fBBC8vTV4zU7eqWlsxxddlG VmdDsgdmVydGljYWwtYWxpZ 246IHRv yQwbOBRbiG5vVQJphFXmhJk gYC5nKBEmhqjfXsMUDE6VBy oGVMFWBLWBUZBAIR37RU43f BZdw8P1 iPN6K6VkLKJnpnzbwilgdLP 6VQYbFLIbjB45jIOnDRdzUk 0xc9F6l874CHHaUPPrsK10C f7smItl TXGvuXUOdC6fnfjra1sybqr oVzVqJMPcLUm1UOs0TAKzyW isShTqHSR8GeR2OTA0qAUhy U1lvMrl injrxN6gFot+MDcvMzAvMTk 3OTwvdGQ+YCSfUDH8pOkcVI bpSULozW8hPGZiK0o3AwWhD uW0CXit U5CjEZQcodnjYk54wK3uNtB iSaO0JBsrH1WtpnV2EWBpqK VsYTlyKLH0Y33sd0T0BGReB DAwMDA7 kMP8sF8sjNjpchbwyMWswYh jmmXqsSpiOHaxHJrnJ644ZE GqiLtmMwLrSHamJDIzKA71C I81oZTi n9L4oVJ8Q5IqHONlorocdfj jbKN8JMRuIWKobL68sXGtZR nlZo9xu6R1u566KXBmEZNio X96Xc9t eDtrZEIwcKCYcM1hbljsa1p yttvgRlBoHWRnYDm0YXm1RG LvuLkoYoVkCQA7JtN0VPF3q CLvqN4x kWlplxickU3jOrh+RmVtYWx jJG66KD66cFVzu5O4tXS4W3 ZwTBGdsgrdxmrifVP6DVOeE DUwaW47 yIRnXYisXm8sk2U2w163QLC jPMOdcP70At4toMdiFEBscR LYdP6blemva0lvsibfEyPwV DAwMDt0 LDz4XWEfgRnsNqXuMZP2OhL 4FWE8bNMjaG8uzZffpmuzfK 9wOyc+OOTcPLSqg9Swd6XgR C44SK64 D1EzJbuzxMRvbWL+PHRhYmx lIHdpZHRoPScxMDAlJyBzdH hoCW5pYx6qYBEqGDXtrOuyd HNlOiBj v2ufFZMrDDciGS8vtNeuG7R usXU0STUoj1o1Dv68Y97eL8 JvdXA+XVUrvBA0cOK8gX9xR zAlIiB2 CIpmS437AyEenPHcTgydu4m dx9siyDr6JuDkAWUmwzQhpK suTLD0y7JgMb36E62gHLyyA HRoPSIy KAAbIZZdsBqgkx8yeI2aWa7 +YKVrmQL6iSO0mV0tAcZhNj T3XKljO865FhTfnLWvAsqnX 74lH1Fo dXA+ZEWvJpv8XWPljUhqHG5 zjSHaZHnlNw2eIHH0JnHtZd RrWYdbZ1WyMWCfhbprsfykz GN5PHSf GMOloV82La7pfRjaHp5eERD zXZK8YSRovYLuT1EodS7bMh VnLGOgCWHzO2JhyCYiQKfoT 246IGxl CuC4NEUbrrMgZ3CfHUVpeTm hWtR8r5L2Fg8VjHjioDGgTA 4nPhWyPIn2F8TnBkl8KDVlt InlNA5z wGQkRPjvNb5rvPwhiYytDB7 gHYYbqodpp802RuNyk8byHK QzbZQrYAajHLG4K72qi3E2M CMwMDAw VIS8dYI2cO8kaPyljwwpeJP mdDsgdmVydGljYWwtYWxpZ2 78CZPooJaqZrTEIwl2K8LdW rg3KIBs fPnuSU2brDYeJGpsVq1yfDx uoZruSP3pOJXsjwzfm816Wb Eof8xrORFdaLBuAKbcGXJ6L 44qy0A7 BAWcOYDrDVP3sKS0gQ7chPl nbjogbGVmdDsgdmVydGljYW uuMNgoO002DJGcpAagHx6LA kg9V8Jr Knp5TCEhgGhlHC7ecSPuYEl yKg8dlRnbuTovMZ3kCUGvsk yxw378HkDeu2zgYGEayKOwG GltZXM7 Y25tu7G3QTJwBVCpWOH7qZT 1zY1cqNwrrmbtkAWqsPcqjy JheEnwTNztJRjkM445PBVzf DsnPlBh eWVyOjwvdGQ+FF37zg58X4N rVppgJhn3DHPmTYE2vAJ9oT 4rCSKmTQjbc2X0hPW3P8Nti fNgzc9w b2xs (more content not included)... Normal [facility] PAP [id number] 07-02-2021 Cytology report Cyto stain Doc (Cvx/Vag) Note Invalid Interpretation Code [facility] Comment on above: Result Comment: TEST S RESULT FLAG UNITS REF RANGE LAB Clinician Provided Cytology Information Source.............[employer] LMP / Prev Treat...XCL=[id number] No. of containers..01 ThinPrep Vial DIAGNOSIS: 01 NEGATIVE FOR INTRAEPITHELIAL LESION OR MALIGNANCY. FUNGAL ORGANISMS MORPHOLOGICALLY CONSISTENT WITH GAETANO SPECIES ARE PRESENT. Specimen adequacy: 01 Satisfactory for evaluation. Endocervical and/or squamous metaplastic cells (endocervical component) are present. Performed by: [employer] ([employer]) . 01 Note: Note 01 The Pap smear is a screening test designed to aid in the detection of premalignant and malignant conditions of the uterine cervix. It is not a diagnostic procedure and should not be used as the sole means of detecting cervical cancer. Both false-positive and false-negative reports do occur. Test Methodology: Note 01 This liquid based ThinPrep(R) pap test was screened with the use of an image guided system. FLAG LEGEND: L-Low Normal,H-High Normal,LL-Alert Low,HH-Alert High <-Panic Low,>-Panic High,A-Abnormal,AA-Critical Abnormal Performed at: 01 [facility] [address] [place] [address] Racheal Rangel MD, Performed By: #### 1 [id number] #### [facility] [address] [place] [address] HPV 16+18+31+33+35+39+ 45+51+52+56+58+59+ 66+68 DNA Probe+sig amp Ql (Cvx) Negative Invalid Interpretation Code Negative [facility] Comment on above: Result Comment: This nucleic acid amplification test detects fourteen high-risk HPV types (16,18,31,33,35,39,45,51,52,56,58,59,66,68) without differentiation. Performed at: [facility] [address] [id number] MD Claire Springer Performed at: [facility] [address] [phone] [id number] MD Claire Springer Performed By: #### 1 [id number] #### [facility] [address] [place] [address] PAP [id number] 06-27-2021 Collection Technique BRUSH[employer]SPATULA Normal [facility] Comment on above: Performed By: #### 1 [id number] #### [facility] [address] [place] [address] Gynecological Body Site ENDOCERVIX Normal [facility] Comment on above: Performed By: #### 1 [id number] #### [facility] [address] [place] [address] LMP or Menopause Date [id number] Invalid Interpretation Code [facility] Comment on above: Performed By: #### 1 [id number] #### [facility] [address] [place] [address] Previous Cytology Negative Normal [facility] Comment on above: Performed By: #### 1 [id number] #### [facility] [address] [place] [address] Previous Treatment NONE Normal [facility] Comment on above: Performed By: #### 1 [id number] #### [facility] [address] [place] [address] Physician Orderon 06-26-2021 Physician Order [id number] D:127 Normal [facility] Coding Summaryon 03-04-2021 Coding Summary HTMLBase 64 VkcydjhzOIx3eWg+PGhlYWQ +XR8EJURaI56dhKLwmH7IT6 kMOC5IVEMCEIASCK3OXL0pa EW7AEhrC1AfvzSd MbyvyEHuRP69YMt4YTF9gQq uXQuchH7wzFCeL4b8OoBxAL 99cS95YFzqDVXaPmB1NpUii jsgbWFy I0ioKdMloTWrPfn+PHRhYmx lIHdpZHRoPScxMDAlJyBzdH apMQ1hCf5lEKXlGSYjhRtwu HNlOiBj l4huNXAlWGehVW7buLefH1W hxPL9XLRrn8v3Yg04wWN+PH UrBDN3bCloCQbeg881LcEim 4mqLVE0 pPHcMKqdRBI6Y06ex4E4MHY rTKTmPZB7aNZ3rQ6hrMenrz ptE4SleDOhOrV1KCU6lLYty F5cfQcu woyinT1rWhy+J24UMJ2PGEP XGG9POgn9X2SaMpthaSZ+PC 00EFDlOG60nYLyjSHsw7byw By6RnJz LZHjRUK3tBjcINhop1CmSET gZ43pcOIar9U1KFPfbFqqoR NvVpFtzQY0sY6jKUbghbqrx 2hvdzsn Hzuki7smgz49vO95D13uHZq zEFXnIKL4GXQpMNSpoYhjzg 3tjL0zWl8+FZvoh5hyy0fcp Aa0RcLa EQHxvvPubNmcQWL6i3KoLz0 2X4BfgMhbe4ZxBvu5fc94gA Ynx3V7eIF1FCscJLLgpV9dI WxlZnQ6 SKMcTlAomG55jBIgSUfaLf4 ppFtyoKtfEX5yJONektdwMK EgzZ4fHQKfsRWnyHjpAD5eZ TBpbjtm g111MuJfKOV9EZBzvQQvQ7A zpY8cBwPeIJGsZNGpE3SnpD OmJCcoA409MLplKzZ2KOSpt vKiZ7No HXKvsOtfBfM3r0R3Ts0Ch9O ixwwnXQJ2GKpxIUU8XaM3Fa XwEkM5R2OeZnh8LSGgoSdbZ R3yJ9Yf WQDcvjzmpawhzZF4TQLgDLP inM49lDEbIVjyXf3vc3A8u9 65KPOfSUJmdR58Gq1kbCdxA TBwdCBU qF4hpdgmq5txohfuCkDmRRC dHBz9MCq8RTJgxXmvUhItBM Y8HiW0VAL3qWGmgN1uiYycz ltmeA1u Oyc+O06cnO4kZSI9KNN1btn qRBYloiVxTT39JX14F5FzRh wvdGFibGU+PGRpdiBzdHlsZ R6lWrEd f3neu0AaAZjhJ8WfPYLzHRu aVpe3ECRvQVX8fXK5sM5hFX SgPZfcd5L6lDM0O0TaceIsv q9wo5gy VZOzXTksH82kbZUvo5M4PLQ wmIU0WVNtsYkaVbFfzG75Vh c+KRBwyRbrr6LtZpuat9utk 9rneGc0 JnFfTSTvlfNjkZkoKTY3s0B cEg94X18sIKhrCZEeOAVcGZ AnQJMkrJzrhx0lhI2pXx8+P GNvbCB3 oTA2vP8vFEGkRmT5BJrzW86 9CoQsoCJmDvacz2qfv5wqiL z4XsOrYGEzzwDlnJisDXV9n 9TuIu92 M53iPCdnNYNdSVLoKAYaNCK grVsazj7eqT8zBc9+PC9jb2 lnft94sF17pIE+GFRrGPT4r WxlPSdw OQTfyZ5dCUyuVcU6OXYeHeA obV26rMYmYSvyBi4cdPmqdJ qpJF3vGOZykodkm277JrAxz 2xkIDEw xXJwHBfzRKZ3P04tg0R1PEW iJZLyYMV3oXJ5oY4rfVjppd ogbGVmdDsgdmVydGljYWwtY SnsU081 IHRvcDsnPlBhdGllbnQgTmF pSUb9H9RtBxh7EOSziEqsVX 3ilAIqEAhqTc8dhNznkJglF V3uCBUi rpvxz657CxQiq4pbOWUoiRW rDJbsGFJ3P48ph8P6WTZzYP AxZMC2nJZ2yE0mdHbvtsnbr GVmdDsg qcSyaMcnVHloNItlD351FPQ kxMwqMbIxkoEjSBZhuEL5AK 78FF48tVSlx5C9cOZ0O3HvK GRpbmct zfznyNE4ENAtXGNfuX46Oq1 flEblBc7nHEVsFHG5UXUzxS UqO2QgiW6aMfQkSGMuIRLuC 3RleHQt PBisD933YQypNwM8OOWforY rP2ZyQQOcuCwhCcI0d8S5Ck 2AY6U9RX49ZI62hCIps3N6w BT5Z9Wg BFLbemwfpyclkEU3SKUgRKE spC03Ye8jeRhsEw6rJLIfVP W2ASJbgURlI4EmzO9aLjShP DAwMDAw D5XrkSFtCIifP273LVlbGzE 7FJVdztEoR8XnKYLyoQthVk S3j2J4Xf8INXx6OL69VD93k ILdy7O3 dOX1I4WrUPAmvklyxbihwQD 5SVWkLRFfxD64Dl1zhQebLr 6vBCScIOF0UIRduRCoO9Xzl I6rYfBm ZXQjYXWkI6SgpMNtKQudR45 4EGdgJxI4JZIazqSqX8CkKO TwdXrkLoP4m3L1Ax4DCALsH N11QYZ2 hHI6AE13AO93H0FqBegorFI ibGU+PHRhYmxlIHdpZHRoPS tyZJXcHcGbvAdhCT0xWx3wL GVyLWNv hXfaaURjQkMkl4xtEYPpMTo lIV2fgOzzN5GabZX8CREzg6 q5Fo15A79dP7TwfYC+PGNvb WR1nMS3 pC2tFqXlKaJ0AEeiS222AfW woWClLwhmw1svd9ckeZe7Zk U6IZVzjzOjwTogMPO7z1VrA k37I64x IHdpZHRoPSIxNSUiIHZhbGl nrg8wiC3xVy1+XSDpwIL4aJ F5cW2rHgNaAsJ9VVikM632F nRvcCIv Ywuql9nhs5muqOa5IrYjFMO lyiWfzWurEBL1s5NmRs15X9 RioMnoz5TqVhl8kd41kXYnw 5V2tWB1 W6YpLXBtotcyoJDllMofFL7 lQPGgtazpQSKlxG8oVQXjA8 o9PiSzKtD7JJdzY6KiatG0N DEwcHQg OPbwCQB3V08cf8G3DKWvPQG hLJU6vHI1cC6rfXyrzjepwT VmdDsgdmVydGljYWwtYWxpZ 246IHRv xLzsLEPcjU0wDXXdzCQtyQo oDK8iUOOllyzcDsTNJN2FMd aXDLWYMSSBGLPPG3UXJFzBC TwvdGQ+ WGOsYFQ1pFmlIPxeQHYhvW4 cMQUrQ7d8EdTgOdD4VZajG5 TvVGAzcoumAe80gU6bDmPlA xE7UJbw U6CdzoC0ZIRtmQLbWTfuATC 6V29pf5R7NYIaYUZoNPJ1jH T9pW6jqSybmcrznPTxqPrcn mVydGlj AHckQAttW203WIUcpQxhHnB 8UiXcTqI7Mxy4H2PzEgh4RE SvoJpeNR4tzQDuPZcyAb1le WdodDog VV5pDDPesnpwTLTlgD2iJSM pgNEcdYsiEP8wWSRxlfqas8 72VyZhGEN9QTVenYRfM4Mhu V8fOtOn ZKUuIEDbO5KndWWvPEvkJ01 4KTdvJtG5HLEvcyYiN9RcGO FndWraDoS1d2I7Ra63KUASV WFyczwv dGQ+CTXiCRD4pMsoWIirPEQ viD1pZBToI7k0ExAbHoP7MJ hpN3NzAHOyedltPy96vW2hJ iAwLjA1 FOdpA9ZtuuX9VJRiyXCwCHj aNVJ8N47dw2Z2DTIsLGRzAW H7gON1fQ7bsUvoyvtypIOrl DsgdmVy jEcrHNvpLYikH404LSLmfXk nPkZFTUFMRTwvdGQ+PHRkIH R6hCizCGpoRVSryP1xNLYcK 2o9KfCk XbQ3JKoaZ2GgRXBjjvurIc0 9oT8nFsLvAqD1ZLdlT2Tcoe T8RGXfySLdYKazGTC5U68py 0U8VPMu TGXjQIM6aNX8lT6xqAslhtw gbGVmdDsgdmVydGljYWwtYW udO787BIMsxZobTs4JPG87I D77O9Xb PjwvdGFibGU+PHRhYmxlIHd pZHRoPScxMDAlJyBzdHlsZT 9vUf8nWDNoOHTliDlyrJImD pRav3ji HRMwXMwbAI4geQclG4SopJT 9AJOlb2a8Qh30T07xO4NqaV A+LRFvbNQ2cWW3yG3vGgClW xX3GZlg U894DbVpeIStIrghb5jdq9t wmPs2IpTjUSIvweNkxDocOA Z2z3RlPz15D71qQPitJFZoG SIyMCUi YKCecGyhot3bpJ7nOn7+PGN tuHG2xIZ0kI5bDyDwZaV3YQ hyH593GuKnbXIkBkqaP73pE 3JvdXA+ OOChNxi7PUElbRdrXW3ftLP lUSuqBo1pVPF2RyKfVtEyPF ccN3HvJXOmrpipcyrkcKZ5P DAuMDUw hW19Eu0jrGzeOa1mISDfCBY 2EROhyJDcG0KzpS0xRiNtGR WjJXBfG4IqeMVtKAfaG721V GxlZnQ7 TIYlpnAbN4ImLHOtpEpnPnB 5z7S5Di3BdJsmwMHdHJ4dRc OlWTs6Y5SrYpq7TPNgqKbnQ D6enLOu HVxsSu0tvOijhSrqBD5wNTP lsiujx622KcRoo7gwZLCuiN EdCZtnEWM2O14mp9D7IPTkT DAwMDA7 zZD5lO6tpFraqxmlnHVclPq ywfCjeExgKKllTCfpO220HK UasZdtGtLMMhr9U1XpRfk4X CBzdHls ZH1gaAYzBVrwEd3aoGdyaNb hDO5rPYJohytso839UsBbj0 fzCCYjsUUxEVerCTK9A10sq 9Q5DFLt GTIhXPY7nPT8wZ0psQrvhtc gbGVmdDsgdmVydGljYWwtYW otF752NJJdcMoeSy7ACob1G 7VlFqc8 ZWQmwVsdHS2qtJWgFIbrQz6 ufKjgtHgvUM3jOHIhmgsvc0 38HaGbl2vmOUMhsUPjDNusE XO7U91u x7T3PAExDIGkEPX5eYZ8rW9 hbGlnbjogbGVmdDsgdmVydG ivRJcmUBbvE950WUTxpCstL lBheWVy OjwvdGQ+JF89mw22N0DxRms iXpo2STXeTXQ0nQO7bT2kNI KxRJfhl3M2wXQ5Z8DhmaSpi z6pg8pu YXB (more content not included)... [facility] Consent Formson 02-26-2021 Consent Forms [id number]#[id number] [facility] Mammo Screening 3D Bilate ral.on 02-25-2021 [place] Mammo Screening 3D Bilateral. EXAMINATION: [place] Mammo Screening 3D Bilateral. HISTORY: Screening. COMPARISON: 10/12/2013 BREAST COMPOSITION: The breast tissues are heterogeneously dense. RIGHT BREAST: No significant suspicious findings. Stable benign-appearing nodule within the posterior upper inner quadrant. No significant change has occurred. LEFT BREAST: No significant suspicious findings. No significant change has occurred. [employer] Image Development Mechanic was utilized for this study. RECOMMENDATIONS: Routine mammogram and clinical evaluation in 12 months. ACR birads #2: Benign finding. Assessment / Recommendation: 2-1 Normal interval follow-up Breast density: Heterogeneously Dense Recall interval: 012 months Final Dictated by: Evan Solomon MD Dictated DT/TM: 03/17/21 8:29 Signed (Electronic Signature): Evan Solomon MD 03/17/21 8:32 am Technologist: Assessment: 2-Benign finding Recommendation: Normal interval follow-up [facility] Provider [place] 02-21-2021 Provider Orders [id number]#1.00O [facility] Coding Summaryon 09-18-2020 Coding Summary CODING DATE: 021 [facility] STATUS: Home PAYOR: Medicaid ADMIT DX: REASON FOR VISIT DX: I49.9 Cardiac arrhythmia, unspecified FINAL DX: PRINCIPAL: I49.9 Cardiac arrhythmia, unspecified SECONDARY: I44.4 Left anterior fascicular block PYMT PROC APC STAT DESCRIPTION DOCTOR NAME DATE NOTE: The code number assigned matches the documented diagnosis and / or procedure in the patient's chart. However, the narrative phrase printed from the coding software may appear abbreviated, or result in slightly different terminology. Coded By: Catherine Chery Date Saved: 09/18/2020 08:04 am [facility] Provider [place] 09-18-2020 Provider Orders [id number]#1.00O [facility] Coding Summaryon 03-22-2020 Coding Summary CODING DATE: 020 [facility] STATUS: Home PAYOR: Medicaid ADMIT DX: REASON FOR VISIT DX: R63.6 Underweight FINAL DX: PRINCIPAL: R63.6 Underweight SECONDARY: PYMT PROC APC STAT DESCRIPTION DOCTOR NAME DATE NOTE: The code number assigned matches the documented diagnosis and / or procedure in the patient's chart. However, the narrative phrase printed from the coding software may appear abbreviated, or result in slightly different terminology. Coded By: Gissell Mccauley Date Saved: 03/22/2020 12:32 pm [facility] Vital Signs Date Time Vital Sign Value Performing Clinician Facility 11-09-2024 15:57-0400 Body mass index (BMI) [Ratio] 14.91 kg/m2 Susan Harden [employer]PER[employer] Work Phone: [facility] 11-09-2024 15:57-0400 Body temperature 98.01 [degF] Susan Harden [employer]PER[employer] Work Phone: [facility] 11-09-2024 15:57-0400 Body weight 36.97 kg Susan Harden [employer]PER[employer] Work Phone: [facility] 11-09-2024 15:57-0400 Diastolic blood pressure 60 mm[Hg] Susan Hinesz [employer] Work Phone: [facility] 11-09-2024 15:57-0400 Heart rate 88 /min Susan Hinesz [employer]PER[employer] Work Phone: [facility] 11-09-2024 15:57-0400 Respiratory rate 18 /min Susan Hinesz [employer]PER[employer] Work Phone: [facility] 11-09-2024 15:57-0400 SaO2% (BldA) [Mass fraction] 96 % Susan Harden [employer] Work Phone: [facility] 11-09-2024 15:57-0400 Systolic blood pressure 98 mm[Hg] Ssuan iHnesz [employer]PER[employer] Work Phone: [facility] 10-02-2024 13:59-0500 Body height 157.5 cm Damir Montañozpatrick [employer] Work Phone: [facility] 10-02-2024 13:59-0500 Body mass index (BMI) [Ratio] 15.03 kg/m2 Damir Berger [employer] Work Phone: [facility] 10-02-2024 13:59-0500 Body temperature 98.2 [degF] Damir Berger [employer] Work Phone: [facility] 10-02-2024 13:59-0500 Body weight 37.29 kg Damir Berger [employer] Work Phone: [facility] 10-02-2024 13:59-0500 Diastolic blood pressure 72 mm[Hg] Damir Berger [employer] Work Phone: [facility] 10-02-2024 13:59-0500 Heart rate 110 /min Damir Berger [employer] Work Phone: [facility] 10-02-2024 13:59-0500 Respiratory rate 16 /min Damir Berger [employer] Work Phone: [facility] 10-02-2024 13:59-0500 SaO2% (BldA) [Mass fraction] 96 % Damir Berger [employer] Work Phone: [facility] 10-02-2024 13:59-0500 Systolic blood pressure 126 mm[Hg] Damir Berger [employer] Work Phone: [facility] 05-18-2024 13:14-0400 Body height 165.1 cm Damir Berger [employer] Work Phone: [facility] 05-18-2024 13:14-0400 Body mass index (BMI) [Ratio] 14.14 kg/m2 Damir Berger [employer] Work Phone: [facility] 05-18-2024 13:14-0400 Body temperature 97.9 [degF] Damir Berger [employer] Work Phone: [facility] 05-18-2024 13:14-0400 Body weight 38.56 kg Damir Berger [employer] Work Phone: [facility] 05-18-2024 13:14-0400 Diastolic blood pressure 70 mm[Hg] Damir Berger [employer] Work Phone: [facility] 05-18-2024 13:14-0400 Heart rate 63 /min Damir Shaikhk [employer] Work Phone: [facility] 05-18-2024 13:14-0400 SaO2% (BldA) [Mass fraction] 97 % Damir Newelltrick [employer] Work Phone: [facility] 05-18-2024 13:14-0400 Systolic blood pressure 120 mm[Hg] Damir Newelltrick [employer] Work Phone: [facility] 09-22-2022 14:11-0500 Diastolic blood pressure 71 mm[Hg] Tiago Guadalupe DO Work Phone: [facility] 09-22-2022 14:11-0500 Heart rate 70 /min Tiago Guadalupe DO Work Phone: [facility] 09-22-2022 14:11-0500 Systolic blood pressure 113 mm[Hg] Tiago Guadalupe DO Work Phone: [facility] 06-25-2022 10:00-0400 Body height 152.4 cm Carol Olexa Other [employer] Other 06-25-2022 10:00-0400 Body mass index (BMI) [Ratio] 17.97 kg/m2 Carol Olexa Other [employer] Other 06-25-2022 10:00-0400 Body weight 41.73 kg Carol Olexa Other [employer] Other Encounters Encounter Date Encounter Type Care Provider Facility Start: 11-09-2024 End: 11-09-2024 Bamboo flowsheet Susan Harden [employer] Work Phone: [facility] Start: 11-09-2024 End: 11-09-2024 Bamboo flowsheet Susan Harden [employer] Work Phone: [facility] Start: 11-09-2024 End: 11-09-2024 Patient encounter procedure Susan Harden [employer]PER[employer] Work Phone: [facility] Comment on above: Encounter for subseq uent annual wellness visit (AWV) in Medicare patient (Primary Dx); CP (cerebral palsy), spastic, diplegic (CMS/HCC); Seizure disorder (CMS/HCC); Severe protein-calorie malnutrition (CMS/HCC); Underweight; Anxiety; Mild episode of recurrent major depressive disorder (HCC) ([facility]/HCC); Tobacco dependence Start: 11-06-2024 End: 11-06-2024 ambulatory [facility] Facility:[facility] [place] Start: 11-06-2024 End: 11-06-2024 Office outpatient visit 15 minutes Kelli Garrido MD Work Phone: Ophthalmology Comment on above: Corneal melt, left ( Primary Dx) Start: 11-04-2024 End: 11-04-2024 ambulatory Arline Jean RN NURSE [employer] Comment on above: Information Start: 11-04-2024 End: 11-04-2024 Telephone encounter Pepito Hernandez MD Work Phone: Ophthalmology Start: 11-01-2024 End: 11-01-2024 ambulatory [facility] Facility:[facility] Start: 11-01-2024 End: 11-01-2024 Patient encounter procedure Maira Olson MD Work Phone: Ophthalmology Comment on above: Corneal melt, left ( Primary Dx) Start: 10-31-2024 End: 10-31-2024 Emergency department patient visit [facility] Facility:[facility] [place] Start: 10-27-2024 End: 10-27-2024 ambulatory OSVALDO CLARKE Not Available Start: 10-27-2024 End: 10-27-2024 Office outpatient visit 25 minutes Osvaldo Clarke MD Work Phone: [facility] Comment on above: Spastic diplegic cer ebral palsy (CMS/HCC) (Primary Dx); 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) Start: 10-02-2024 End: 10-02-2024 Bamboo flowsheet Damir Ab [employer] Work Phone: [facility] Start: 10-02-2024 End: 10-02-2024 Bamboo flowsheet Damir Berger [employer] Work Phone: [facility] Start: 10-02-2024 End: 10-02-2024 Office outpatient visit 15 minutes Damir Berger [employer] Work Phone: [facility] Comment on above: CP (cerebral palsy), spastic, diplegic (CMS/HCC) (Primary Dx); Non-seasonal allergic rhinitis, unspecified trigger; Spastic diplegic cerebral palsy (CMS/HCC); Seasonal allergic rhinitis due to other allergic trigger; Lumbar paraspinal muscle spasm; Mixed incontinence; Depression, unspecified depression type (CMS/HCC); Acquired spondylolisthesis of lumbosacral region; Anxiety Start: 10-02-2024 End: 10-02-2024 ambulatory DAMIR BERGER Not Available Start: 09-27-2024 End: 09-27-2024 Orders Only Damir Berger [employer] Work Phone: [facility] Comment on above: Non-seasonal allergi c rhinitis, unspecified trigger; Spastic diplegic cerebral palsy (CMS/HCC); Seasonal allergic rhinitis due to other allergic trigger; Lumbar paraspinal muscle spasm; Mixed incontinence; Depression, unspecified depression type (CMS/HCC) Start: 09-13-2024 End: 09-13-2024 Telephone encounter Osvaldo Clarke MD Work Phone: [facility] Start: 08-10-2024 End: 08-10-2024 Refill Damir Berger [employer] Work Phone: [facility] Comment on above: Lumbar paraspinal mu scle spasm Start: 07-14-2024 End: 07-15-2024 Refill Damir Berger [employer] Work Phone: [facility] Comment on above: Non-seasonal allergi c rhinitis, unspecified trigger Start: 06-12-2024 End: 06-13-2024 Refill Damir Berger [employer] Work Phone: [facility] Comment on above: Lumbar paraspinal mu scle spasm Start: 06-08-2024 End: 06-09-2024 Refill Damir Berger [employer] Work Phone: [facility] Comment on above: Non-seasonal allergi c rhinitis, unspecified trigger Start: 05-18-2024 End: 05-18-2024 Bamboo flowsheet Damir Berger [employer]PER[employer] Work Phone: [facility] Start: 05-18-2024 End: 05-18-2024 Bamboo flowsheet Damir Berger [employer]PER[employer] Work Phone: [facility] Start: 05-18-2024 End: 05-18-2024 Office outpatient visit 10 minutes Damir Berger [employer] Work Phone: [facility] Comment on above: Non-recurrent acute serous otitis media of both ears (Primary Dx); Impacted cerumen of right ear Start: 05-18-2024 End: 05-18-2024 ambulatory DAMIR BERGER Not Available Start: 05-10-2024 End: 05-10-2024 Refill Damir Berger [employer] Work Phone: [facility] Comment on above: Mixed incontinence Start: 05-05-2024 End: 05-05-2024 ambulatory DAMIR BERGER Not Available Start: 04-25-2024 End: 04-25-2024 Refill Eric Leslie MA [facility] Comment on above: Seasonal allergic rh initis due to other allergic trigger (Primary Dx) Start: 04-22-2024 End: 04-22-2024 Refill Damir Berger [employer] Work Phone: [facility] Comment on above: Impacted cerumen of right ear (Primary Dx) Start: 04-10-2024 End: 04-10-2024 ambulatory DAMIR JOHNSONPATRICK Not Available Start: 04-10-2024 Patient encounter status Johnna valladares Berger SUPERVISOR [employer] Work Phone: [facility] [employer] Start: 01-17-2024 End: 01-17-2024 ambulatory SHAIKH KOMAL Not Available Start: 10-06-2023 Refill Shaikh Komal REESE Work Phone: [facility] Comment on above: Depression, unspecif ied depression type (CMS/HCC) Start: 05-31-2023 Preprocedural examin ation done Shaikh Komal REESE Work Phone: [facility] [employer] Start: 02-03-2023 Refill Tiago Guadalupe DO Work Phone: Neurology Comment on above: Refill Request Start: 11-03-2022 End: 11-03-2022 ambulatory Carol Olexa Other [employer] Other Start: 11-03-2022 Telephone encounter Carol Chang [facility] Start: 09-22-2022 End: 09-22-2022 Patient encounter procedure Tiago Guadalupe DO Work Phone: Neurology Comment on above: Tremor (Primary Dx); Arthralgia of both lower legs; Convulsions, unspecified convulsion type (HCC); Seizure (HCC) Start: 06-30-2022 End: 08-21-2022 ambulatory CAROL OLEXA Facility:[facility] Start: 06-25-2022 End: 06-25-2022 ambulatory Carol Olexa Other [employer] Other Start: 06-25-2022 Office outpatient ne w 30 minutes Carol Olexa [facility] Start: 06-04-2022 End: 06-05-2022 ambulatory SHAIKH Daron SAUCEDA Facility:[facility] Start: 05-25-2022 End: 05-26-2022 ambulatory TORRES H FAWWALuis Facility:[facility] Start: 05-08-2022 End: 05-09-2022 ambulatory SHAIKH Daron SAUCEDA Facility: Start: 09-24-2021 End: 09-24-2021 ambulatory JANIS ALCARAZ Facility:[facility] Start: 04-17-2020 End: 11-09-2024 Preprocedural examination done Tiago Guadalupe DO Work Phone: [facility] Work Phone: Procedures Date Procedure Procedure Detail Performing Clinician Start: 05-05-2024 Mammography Damir covarrubias [employer] Work Phone: Start: 04-23-2021 Mammography Misael talia Guadalupe DO Work Phone: Start: 09-13-2020 Lipid 1996 panel - S jorge l or Plasma Maira Olson MD Work Phone: Plan of Treatment Date Care Activity Detail Author Start: 11-01-2027 Diabetes Screening Diabetes Screenin g [facility] Start: 04-18-2027 Screening for malign ant neoplasm of colon [facility] Start: 11-09-2025 Medicare Annual Wellness (AWV) Medicare Annual Wellness (AWV) [facility] Start: 09-13-2025 Lipid panel Lipid Screening [facility] Start: 05-05-2025 Screening for malign ant neoplasm of breast [facility] Start: 01-26-2025 End: 01-26-2025 Patient encounter procedure 01/26/2025 10:30 AM EDT Office Visit [facility] [address] [place] [address] Osvaldo Clarke MD [address] [place] [address] [facility] Start: 01-03-2025 End: 01-03-2025 Patient encounter procedure [facility] Start: 12-25-2024 End: 12-25-2024 Patient encounter procedure 12/25/2024 11:00 AM EDT Office Visit [facility] [address] [place] [address] Susan Harden, [employer] [address] [place] [phone] [facility] Start: 11-27-2024 Influenza vaccination Influenza Vacc ine (#1) [facility] Comment on above: Postponed from 04/30 (Patient Refused) Start: 11-17-2024 End: 11-17-2024 Patient encounter procedure 11/17/2024 1:00 PM EDT Office Visit [facility] [address] [address] [place] [address] [place] [address] [facility] Comment on above: [facility] Start: 11-09-2024 End: 11-09-2024 Patient encounter procedure 11/09/2024 4:00 PM EDT Office Visit [facility] [address] [place] [address] Susan Harden, MARKUS [address] [place] [phone] CP (cerebral palsy), spastic, diplegic (CMS/HCC) (Primary Dx); Seizure disorder (CMS/HCC); Severe protein-calorie malnutrition (CMS/HCC); Underweight; Anxiety; Mild episode of recurrent major depressive disorder (HCC) (CMS/HCC); Tobacco dependence [facility] Comment on above: CP (cerebral palsy), spastic, diplegic (CMS/HCC) (Primary Dx); Seizure disorder (CMS/HCC); Severe protein-calorie malnutrition (CMS/HCC); Underweight; Anxiety; Mild episode of recurrent major depressive disorder (HCC) (CMS/HCC); Tobacco dependence Start: 11-09-2024 End: 11-09-2025 25-hydroxyvitamin D3 [Mass/volume] in Serum or Plasma Vitamin D 25 hydroxy Lab Routine Severe protein-calorie malnutrition (CMS/HCC) Expected: 11/09/2024 (Approximate), Expires: 11/09/2025 [facility] Comment on above: Expected: 11/09/2024 (Approximate), Expires: 11/09/2025 Start: 11-09-2024 End: 11-09-2025 Cobalamin (Vitamin B12) [Mass/volume] in Serum or Plasma Vitamin B12 Lab Routine Severe protein-calorie malnutrition (CMS/HCC) Expected: 11/09/2024 (Approximate), Expires: 11/09/2025 [facility] Comment on above: Expected: 11/09/2024 (Approximate), Expires: 11/09/2025 Start: 11-09-2024 End: 11-09-2025 Comprehensive metabolic 2000 panel - Serum or Plasma Comprehensive metabolic panel Lab Routine Seizure disorder (CMS/HCC) Severe protein-calorie malnutrition (CMS/HCC) Anxiety Expected: 11/09/2024 (Approximate), Expires: 11/09/2025 [facility] Work Phone: Comment on above: Expected: 11/09/2024 (Approximate), Expires: 11/09/2025 Start: 11-09-2024 End: 11-09-2025 Ferritin [Mass/volume] in Serum or Plasma Ferritin Lab Routine Severe protein-calorie malnutrition (CMS/HCC) Expected: 11/09/2024 (Approximate), Expires: 11/09/2025 [facility] Comment on above: Expected: 11/09/2024 (Approximate), Expires: 11/09/2025 Start: 11-09-2024 End: 11-09-2025 Folate [Mass/volume] in Serum or Plasma Folate Lab Routine Severe protein-calorie malnutrition (CMS/HCC) Expected: 11/09/2024 (Approximate), Expires: 11/09/2025 [facility] Comment on above: Expected: 11/09/2024 (Approximate), Expires: 11/09/2025 Start: 11-09-2024 End: 11-09-2025 Iron + transferrin + TIBC Iron + transferrin + TIBC Lab Routine Severe protein-calorie malnutrition (CMS/HCC) Expected: 11/09/2024 (Approximate), Expires: 11/09/2025 [facility] Comment on above: Expected: 11/09/2024 (Approximate), Expires: 11/09/2025 Start: 11-09-2024 End: 11-09-2025 Magnesium [Mass/volume] in Serum or Plasma Magnesium Lab Routine Severe protein-calorie malnutrition (CMS/HCC) Expected: 11/09/2024 (Approximate), Expires: 11/09/2025 [facility] Comment on above: Expected: 11/09/2024 (Approximate), Expires: 11/09/2025 Start: 11-09-2024 End: 11-09-2025 Prealbumin [Mass/volume] in Serum or Plasma Prealbumin Lab Routine Severe protein-calorie malnutrition (CMS/HCC) Expected: 11/09/2024 (Approximate), Expires: 11/09/2025 [facility] Comment on above: Expected: 11/09/2024 (Approximate), Expires: 11/09/2025 Start: 11-09-2024 End: 11-09-2025 Thyrotropin [Units/volume] in Serum or Plasma TSH Lab Routine Anxiety Expected: 11/09/2024 (Approximate), Expires: 11/09/2025 [facility] Comment on above: Expected: 11/09/2024 (Approximate), Expires: 11/09/2025 Start: 11-09-2024 End: 11-09-2025 Thyroxine (T4) free [Mass/volume] in Serum or Plasma T4, free Lab Routine Anxiety Expected: 11/09/2024 (Approximate), Expires: 11/09/2025 [facility] Comment on above: Expected: 11/09/2024 (Approximate), Expires: 11/09/2025 Start: 11-09-2024 End: 11-09-2025 Urinalysis complete panel - Urine Urinalysis with reflex microscopic (clean catch) Lab Routine Tobacco dependence Expected: 11/09/2024 (Approximate), Expires: 11/09/2025 [facility] Comment on above: Expected: 11/09/2024 (Approximate), Expires: 11/09/2025 Start: 11-06-2024 End: 11-06-2024 Patient encounter procedure 11/06/2024 3:00 PM EDT Office Visit [facility] [address] [address] [place], [facility] [address] [place] [address] Hi could we please schedule this patient for SDA on Wednesday11/06/24 at 3pm, [facility] page me. Thank you Ophthalmology Comment on above: Hi could we please s chedule this patient for SDA on Wednesday11/06/24 at 3pm, [facility] me. Thank you Start: 10-27-2024 End: 10-27-2024 Patient encounter procedure 10/27/2024 10:50 AM EST Office Visit [facility]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 different and cloudy 1 week prior to presentation. Noticed increased blurry vision for the past week as well. Denies pain -Reports was seen by home eye doctor in [place] (Dr. Gonzalez) 1 month ago and things were stable -Seen today by Dr. Gonzalez who noted central descemetocele and sent patient to [facility] main ED for further management -On exam there is a 5x4mm stromal scar with 1.5x1.5mm central clearing and 80% thinning centrally. Overlying 3mmx1.5 epi defect, Dense KNV Sup and inf to the stromal scar. No hypopyon. IOP 2. Yamilet negative. 10/30/2024: - Stable exam overall- stable epi defect and descematocele HSV IgG1 positive OCT anterior segment done today: confirms descemetocele Temporary tarsorrhaphy OS: Written informed consent obtained from the patient and his spouse, who signed the consent form. Risks, benefits, alternatives, complications reviewed. Risks, benefits, alternatives, complications reviewed. Area prepped with betadine in the usual sterile fashion. One drop of proparacaine 0.5% given OU. Lidocaine 1% with [id number] epinephrine placed in the upper and lower eyelid in a modified van lint block. 6-0 Prolene suture was placed approximately 3 mm inferior to the margin of the lower lid, though tarsus and out though the margin. Care was taken to penetrate tarsus, but not palpebral conjunctiva. The suture was then advanced to the upper lid, in an aligned manner, and it was directed though the margin and tarsus, and finally out through adjacent tarsus and margin in a lamellar fashion. The palpebral conjunctiva was again avoided. The suture was then passed through the lower lid margin and tarsus, avoiding penetration of palpebral conjunctiva, and exiting 3 mm inferior to the margin of the lower lid. The needle was removed and the ends where tied in a 3-1-1 manner. No immediate complications. No signs of bleeding after procedure completed. Patient tolerated procedure well. Plan: - Start Valtrex 1 g BID - Start Moxifloxacin 1 drop 4 times daily - Start erythromycin 3 times daily on the stic - Stop prednisolone acetate - Follow up on eye cultures - Follow up on Wednesday with Dr. Pereira (he will call for details of time), earlier as needed Discussed with Dr. Woodard documented in this encounter [facility] 10-27-2024 History of Present illness Narrative Images from the original note were not included. CHIEF COMPLAINT REASON FOR VISIT: seizures HPI: Michelle Stanley is a 44 y.o. female who presents for a follow up. Patient states she has not had any seizures. She states she has not had any any seizures for over a year. She was on Baclofen for many years and recently switched to Methocarbomal. States it has seemed to help. No recent testing. No new symptoms. Patient states she is doing well. Denies any other concerns. CURRENT MEDICATIONS: ALLERGIES/DISCONTINUE MEDICATIONS Current Outpatient Medications Medication Instructions acyclovir (Zovirax) 400 MG tablet TAKE 1 TABLET BY MOUTH FIVE TIMES DAILY baclofen (LIORESAL) 10 mg, Oral, 3 times daily celecoxib (CELEBREX) 200 mg, Oral, 2 times daily PRN, Do not exceed 400mg in 24 hours. Take with food fluticasone (Flonase) 50 MCG/ACT nasal spray 2 sprays, Each Nostril, Daily, Shake gently. Before first use, prime pump. After use, clean tip and replace cap. gabapentin (NEURONTIN) 400 mg, Oral, 3 times daily hydrOXYzine HCl (ATARAX) 25 mg, Oral, Every 12 hours PRN loratadine (CLARITIN) 10 mg, Oral, Daily Oxervate 0.002 % ophthalmic solution oxybutynin XL (DITROPAN-XL) 10 mg, Oral, Daily prednisoLONE acetate (Pred-Forte) 1 % ophthalmic suspension 1 drop, 3 times daily sertraline (ZOLOFT) 100 mg, Oral, Daily Allergies Allergen Reactions Methylphenidate Other Reaction(s): feels bad on med, Other: See Comments hyperactive Morphine Other Reaction(s): hyperactive, Other: See Comments insomnia Medications Discontinued During This Encounter Medication Reason methocarbamol (Robaxin) 500 MG tablet Therapy completed 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 OTHER SURGICAL HISTORY Bilateral 1986 Punctum occlusion bilaterally Social History Tobacco Use Smoking status: Every Day Types: Cigarettes Passive exposure: Current Smokeless tobacco: Never Vaping Use Vaping status: Some Days Substances: THC Passive vaping exposure: Yes Substance Use Topics Alcohol use: Not Currently Comment: caffeine: more than 4 cups per day 2 cups coffee and 4 sodas daily Drug use: Yes Types: Marijuana Family History Problem Relation Name Age of Onset Liver cancer Paternal Grandfather Depression: Not at risk (05/18/2024) PHQ-2 PHQ-2 Score: 0 REVIEW OF SYMPTOMS: Review of Systems Constitutional: Negative for chills, diaphoresis, fatigue and fever. HENT: Negative for ear pain, tinnitus and trouble swallowing. Eyes: Negative for photophobia and visual disturbance. Respiratory: Negative for cough and shortness of breath. Cardiovascular: Negative for palpitations and leg swelling. Gastrointestinal: Negative for abdominal pain and nausea. Genitourinary: Negative for difficulty urinating and urgency. Musculoskeletal: Negative for arthralgias, back pain, myalgias, neck pain and neck stiffness. Neurological: Negative for tremors, weakness, light-headedness and numbness. Psychiatric/Behavioral: Negative for agitation, confusion and suicidal ideas. OBJECTIVE: 10/02/2024 1:59 PM 05/18/2024 1:14 PM 04/10/2024 3:09 PM Vitals BMI 15.03 kg/m2 14.14 kg/m2 15.99 kg/m2 BSA (m2) 1.28 m2 1.33 m2 1.3 m2 Systolic 126 120 104 Diastolic 72 70 60 Heart Rate 110 63 76 SpO2 96 % 97 % Temp 98.2 F 97.9 F 98.3 F Resp 16 Height (in) 5' 2 5' 5 5' 1.5 Weight (lb) 82.2 85 86 Visit Report Report Report Report EXAM: Neurological Exam Mental Status Awake, alert and oriented to person, place and time. Oriented to person, place and time. Recent and remote memory are intact. Speech is normal. Language is fluent with no aphasia. Attention and concentration are normal. Cranial Nerves CN II: Visual acuity is normal. Visual escalona full to confrontation. CN III, IV, : Extraocular movements intact bilaterally. Normal lids and orbits bilaterally. Pupils equal round and reactive to light bilaterally. CN V: Facial sensation is normal. CN VII: Full and symmetric facial movement. CN VIII: Hearing is normal. CN XII: Tongue midline without atrophy or fasciculations. Motor Normal muscle bulk throughout. Normal muscle tone. Right Left Wrist flexion 5 5 Wrist extension 5 5 Right Left Deltoid 5 5 Biceps 5 5 Triceps 5 5 Wrist flexor 5 5 Wrist extensor 5 5 Glutei 5 5 Iliopsoas 5 5 Quadriceps 5 5 Gastrocnemius 5 5 Anterior tibialis 5 5 Posterior tibialis 5 5 Sensory Light touch is normal in upper and lower extremities. Pinprick is normal in upper and lower extremities. Vibration is normal in upper and lower extremities. Reflexes Right Left Brachioradialis 2+ 2+ Biceps 2+ 2+ Patellar 2+ 2+ Achilles 2+ 2+ Right Plantar: downgoing Left Plantar: downgoing Right pathological reflexes: Nikita's absent. Ankle clonus absent. Left pathological reflexes: Nikita's absent. Ankle clonus absent. Coordination [id number], rapid alternating movements and bcxz-ry-teny normal bilaterally without dysmetria. Gait Normal casual, toe, heel and tandem gait. Romberg is absent. PROCEDURE: NONE ASSESSMENT AND PLAN: Michelle Stanley is a 44 y.o. female who presents with episodes of altered levels of consciousness possibly due to seizure, syncope or cerebral hypoperfusion secondary to intracranial or extracranial stenosis. She also presents with paresthesias in the extremities, gait instability, cognitive difficulty, weakness, and vision changes including blurred vision. Possible etiologies include a demyelinating process such as multiple sclerosis, an intracranial process such as stroke, or a diffuse process such as fibromyalgia Other consideration would be a mixed connective tissue disease such as lupus. Diagnoses and all orders for this visit: Spastic diplegic cerebral palsy (CMS/HCC) baclofen (Lioresal) 10 MG tablet; Take 1 tablet (10 mg) by mouth in the morning and 1 tablet (10 mg) in the evening and 1 tablet (10 mg) before bedtime. I counseled the patient on the possible side effects and interactions of medications. Follow up 3 months. This note was scribed by JOHN Perez acting under the direction of Osvaldo Clarke MD. The content has been reviewed and confirmed for accuracy by Osvaldo Clarke MD documented in this encounter [facility] 10-02-2024 History of Present illness Narrative Associated Problem(s): Anxiety Currently taking Sertraline 100mg Reports she feels is working better than 50mg dosing was. Does admit to very anxious episodes and nit being able to calm down recently. States August was a very stressful month. Would like to try Hydroxyzine PRN to help with breakthrough anxiety. Denies SI/HI. Associated Problem(s): CP (cerebral palsy), spastic, diplegic (CMS/HCC) Follows Dr. Clarke Next appointment October 27, 2024. Prescribes Gabapentin 400mg daily Associated Problem(s): Depression (CMS/HCC) Currently taking Sertraline 100mg Reports she feels is working better than 50mg dosing was. Denies SI/HI. Images from the original note were not included. Subjective Patient ID: Michelle Stanley is a 44 y.o. female who presents for wellness. HPI Offers no complaints today. Cerebral Palsy- Follows Dr. Clarke Next appointment October 27, 2024. Prescribes Gabapentin 400mg daily Anxiety/Depression- Currently taking Sertraline 100mg Reports she feels is working better than 50mg dosing was. Does admit to very anxious episodes and nit being able to calm down recently. States August was a very stressful month. Would like to try Hydroxyzine PRN to help with breakthrough anxiety. Denies SI/HI. Takes Acyclovir daily for Nuclear Sclerosis of L eye. Dr. Lutz prescribes Review of Systems Constitutional: Negative for activity change, appetite change, chills, diaphoresis, fatigue, fever and unexpected weight change. HENT: Negative for congestion, ear pain, rhinorrhea, sinus pressure, sinus pain, sneezing, sore throat, trouble swallowing and voice change. Eyes: Negative for visual disturbance. Respiratory: Negative for cough, chest tightness, shortness of breath and wheezing. Cardiovascular: Negative for chest pain, palpitations and leg swelling. Gastrointestinal: Negative for abdominal distention, abdominal pain, blood in stool, constipation, diarrhea and vomiting. Genitourinary: Negative for decreased urine volume, dysuria, flank pain, frequency, hematuria and urgency. Musculoskeletal: Negative for arthralgias, gait problem, joint swelling and myalgias. Skin: Negative for rash. Neurological: Negative for dizziness, tremors, syncope, weakness, light-headedness and headaches. Psychiatric/Behavioral: Negative for decreased concentration and suicidal ideas. The patient is nervous/anxious. Hematological: Does not bruise/bleed easily. Endocrine: Negative for cold intolerance, heat intolerance, polydipsia, polyphagia and polyuria. Objective Physical Exam Vitals reviewed. Constitutional: Appearance: Normal appearance. HENT: Right Ear: Tympanic membrane normal. Left Ear: Tympanic membrane normal. Nose: Nose normal. Mouth/Throat: Mouth: Mucous membranes are moist. Pharynx: Oropharynx is clear. Eyes: Pupils: Pupils are equal, round, and reactive to light. Cardiovascular: Rate and Rhythm: Normal rate and regular rhythm. Pulses: Normal pulses. Heart sounds: Normal heart sounds. Pulmonary: Effort: Pulmonary effort is normal. Breath sounds: Normal breath sounds. Abdominal: General: Abdomen is flat. Bowel sounds are normal. Palpations: Abdomen is soft. Musculoskeletal: General: Normal range of motion. Skin: General: Skin is warm and dry. Capillary Refill: Capillary refill takes less than 2 seconds. Neurological: Mental Status: She is alert and oriented to person, place, and time. Assessment/Plan Problem List Items Addressed This Visit CP (cerebral palsy), spastic, diplegic (CMS/HCC) - Primary Follows Dr. Clarke Next appointment October 27, 2024. Prescribes Gabapentin 400mg daily Lumbar paraspinal muscle spasm Relevant Medications methocarbamol (Robaxin) 500 MG tablet Acquired spondylolisthesis of lumbosacral region Relevant Medications celecoxib (CeleBREX) 200 MG capsule Allergic rhinitis Relevant Medications fluticasone (Flonase) 50 MCG/ACT nasal spray loratadine (Claritin) 10 MG tablet Anxiety Currently taking Sertraline 100mg Reports she feels is working better than 50mg dosing was. Does admit to very anxious episodes and nit being able to calm down recently. States August was a very stressful month. Would like to try Hydroxyzine PRN to help with breakthrough anxiety. Denies SI/HI. Relevant Medications hydrOXYzine HCl (Atarax) 25 MG tablet Depression (CMS/HCC) Currently taking Sertraline 100mg Reports she feels is working better than 50mg dosing was. Denies SI/HI. Relevant Medications sertraline (Zoloft) 100 MG tablet Cerebral palsy (CMS/HCC) Relevant Medications gabapentin (Neurontin) 400 MG capsule Mixed incontinence Relevant Medications oxybutynin XL (Ditropan-XL) 5 MG 24 hr tablet documented in this encounter [facility] 10-02-2024 Instructions Damir Berger NP - 10/02/2024 2:00 PM EST Try taking hydroxyzine 25mg up to twice daily as needed for anxiety. If you feel too drowsy or groggy after taking it, try splitting tablet in half and taking 1/2 instead. documented in this encounter [facility] 09-13-2024 Telephone encounter Note Patient called in to schedule follow-up, it's set for 10.27.2024. She would like to know if in the meantime her gabapentin rx can be renewed and sent in please. If unable to do so, reach out to patient and notify her. If able to resubmit, reach out and confirm with patient. [facility] 09-13-2024 Miscellaneous Notes Patient called in to schedule follow-up, it's set for 10.27.2024. She would like to know if in the meantime her gabapentin rx can be renewed and sent in please. If unable to do so, reach out to patient and notify her. If able to resubmit, reach out and confirm with patient. documented in this encounter [facility] 05-20-2024 History of Present illness Narrative Associated Problem(s): Impacted cerumen of right ear Used debrox X4 days with no success. R ear was impacted upon initially examination today. Flushed significant amount of cerumen from R ear today in office. Pain and pressure persist. Erythema and fluid noted in middle ear bilaterally. ATB therapy prescribed. Images from the original note were not included. Subjective Patient ID: Michelle Stanley is a 44 y.o. female who presents for No chief complaint on file.. HPI R Ear pressure and pain ongoing X1 month. Decreased hearing and fullness in R ear; Used debrox with no relief or results. Review of Systems Constitutional: Negative for activity change, appetite change, chills, diaphoresis, fatigue, fever and unexpected weight change. HENT: Positive for ear pain and hearing loss. Negative for congestion, rhinorrhea, sinus pressure, sinus pain, sneezing, sore throat, trouble swallowing and voice change. Eyes: Negative for visual disturbance. Respiratory: Negative for cough, chest tightness, shortness of breath and wheezing. Cardiovascular: Negative for chest pain, palpitations and leg swelling. Gastrointestinal: Negative for abdominal distention, abdominal pain, blood in stool, constipation, diarrhea and vomiting. Genitourinary: Negative for decreased urine volume, dysuria, flank pain, frequency, hematuria and urgency. Musculoskeletal: Negative for arthralgias, gait problem, joint swelling and myalgias. Skin: Negative for rash. Neurological: Negative for dizziness, tremors, syncope, weakness, light-headedness and headaches. Psychiatric/Behavioral: Negative for decreased concentration and suicidal ideas. The patient is not nervous/anxious. Hematological: Does not bruise/bleed easily. Endocrine: Negative for cold intolerance, heat intolerance, polydipsia, polyphagia and polyuria. Objective Physical Exam Vitals reviewed. Constitutional: Appearance: Normal appearance. HENT: Head: Normocephalic and atraumatic. Right Ear: A middle ear effusion is present. Tympanic membrane is erythematous. Left Ear: A middle ear effusion is present. Tympanic membrane is erythematous. Nose: Nose normal. Mouth/Throat: Mouth: Mucous membranes are moist. Pharynx: Oropharynx is clear. Eyes: Pupils: Pupils are equal, round, and reactive to light. Cardiovascular: Rate and Rhythm: Normal rate and regular rhythm. Pulses: Normal pulses. Heart sounds: Normal heart sounds. Pulmonary: Effort: Pulmonary effort is normal. Breath sounds: Normal breath sounds. Abdominal: General: Abdomen is flat. Bowel sounds are normal. Palpations: Abdomen is soft. Musculoskeletal: General: Normal range of motion. Cervical back: Normal range of motion. Skin: General: Skin is warm and dry. Capillary Refill: Capillary refill takes less than 2 seconds. Neurological: General: No focal deficit present. Mental Status: She is alert and oriented to person, place, and time. Psychiatric: Mood and Affect: Mood normal. Behavior: Behavior normal. Assessment/Plan Problem List Items Addressed This Visit Impacted cerumen of right ear Used debrox X4 days with no success. R ear was impacted upon initially examination today. Flushed significant amount of cerumen from R ear today in office. Pain and pressure persist. Erythema and fluid noted in middle ear bilaterally. ATB therapy prescribed. Bilateral otitis media - Primary Relevant Medications amoxicillin-clavulanate (Augmentin) 875-125 MG tablet documented in this encounter [facility] 04-25-2024 Telephone encounter Note PT INFORMED AND VOICED UNDERSTANDING. -SCR [facility] 04-25-2024 Miscellaneous Notes PT INFORMED AND VOICED UNDERSTANDING. -SCR ----- Message from Damir Berger sent at 04/25/2024 12:32 PM EDT ----- Please call pt with results. Thanks so much! -BF ----- Message ----- From: [employer] Results In Sent: 04/25/2024 12:37 AM EDT To: Damir Berger NP documented in this encounter [facility] 04-25-2024 Telephone encounter Note ----- Message from Damir Berger sent at 04/25/2024 12:32 PM EDT ----- Please call pt with results. Thanks so much! -BF ----- Message ----- From: [employer] Results In Sent: 04/25/2024 12:37 AM EDT To: Damir Berger NP [facility] 02-24-2023 Miscellaneous Notes Patient has been identified by name and date of : yes Requested Prescriptions Pending Prescriptions Disp Refills gabapentin (NEURONTIN) 400 mg capsule [Pharmacy Med Name: Gabapentin 400 MG Oral Capsule] 90 capsule 0 Sig: TAKE 1 CAPSULE BY MOUTH THREE TIMES DAILY FOR 90 DAYS RX INSTRUCTIONS: Originally requested 02/03. Still waiting. Needs francisco, please. Stacy Lyles documented in this encounter [facility] 09-22-2022 History of Present illness Narrative [facility] [place] New Patient Consultation September 22, 2022 HPI: Ms. Stanley, who is accompanied today by her mother with her permission, presents today secondary to issues of seizures, dropping of things, and leg issues. She is looking for transfer of care. They states she has had seizures that were diagnosed at the age of 16. She had episodes of staring spells and lost time. She was diagnosed with absence seizures and treatment was started with gabapentin. When young, 5-6 years old, her mother states she had been on depakote. She has had chronic behavior issues over time and diagnosis of psychiatric disorder. There had been question of cerebral palsy. 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 She had arteriogram at the age of 5 which was diagnosed as a clot or empty space. This was thought to remain the rest of her life. 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 She has decreased feeling in the forehead and maxillary areas chronically as well as corneal erosions. In regards to recent seizure history she does not think she has had a seizure, last was year ago. In her seizure she can have a feeling of heat or cold in her hands or have an abrupt episode of vomiting after which she feels back to normal. They deny her having any recent type of staring or episode of lost time. She has been on gabapentin 400 mg TID and while on this she feels improved and not having spells. She denies side effects to this she is aware of. In the past she has been on depakote and phenobarbitol in childhood, They are uncertain if she may have been keppra or dilantin, but uncertain. She feels her seizures are fairly well controlled and looking for refills. She has noticed that she has been dropping of things from her hands at times. She has had recent fall in 08/2021 and had shoulder right injury as part of this. She has been in physical therapy for the last 2 months recently finished. She has known ulnar neuropathy in the past near 2018. She never had surgery for this. She denies numbness in the hands can have tingling all of her fingers. When dropping things she is uncertain the cause. She denies focal weakness she is aware of. She denies she is awoken by tingling in them at night. She denies injury except in the fall in 08/2021. She denies fractures then, but had previous collar bone fracture in the distant past. She has had previous workup including EMG 08/2020 which was noted to be normal then. She has had issues with tremors which were treated by previous neurologist. She had increase to her gabapentin in treatment of this. They noted increases in her leg tremors despite this and does not feel the gabapentin increase made the tremors any worse. They note that they do not believe she has had a diagnosis for the type of tremors she has. She does not believe that tremors in her family. She feels her tremors are intermittent. She notes her legs may begin to move straight out with fine shaking and she cannot lower her leg herself. This can seem to happen at any time and if happens while walking can cause her to fall. The shaking can last for up to a minute or so. She denies weakness afterwards. She notes this can happen in either leg without trigger she is aware of. This can happen 1-2 times a week or several weeks without having a spells. When stressed the spells can happen more or when on the toilet she may have bouncing of either leg. She has chronic lower back issues. She states her last intervention for the back were injections to the lower back which she does not feel were helpful. They state this is her leg issues. She is on baclofen and tension and she feels that this helps some at three times a day consistently. She is also on tizanidine she takes only at night at bedtime to help sleep. She is on sertraline is on for anxiety and PTSD. 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 PAST MEDICAL HISTORY Diagnosis Date Motor system disease (HCC) Psychiatric disorder absentee seizure PAST SURGICAL HISTORY Procedure Laterality Date CATARACT EXT; EYEONICS IOL SYS Left 04/23/2021 04/23/21 Axel Woodard MD - Complex cataract Extraction by Phacoemulsification with Posterior Chamber Intraocular Lens Implantation of the left eye. Use of trypan blue for capsular staining, left eye ORTHOPEDICS SURGERY HX Current Outpatient Medications on File Prior to Visit Medication Sig acyclovir (ZOVIRAX) 400 mg tablet Take 1 tablet by mouth twice daily. prednisoLONE acetate (PRED FORTE) 1 % ophthalmic suspension Use 1 Drop in the left eye four times daily. Start after surgery. bjetqzw-bvvobrmbo-gygjmoi D3 500 mg(1,250mg) -200 unit per tablet Take 1 tablet by mouth twice daily. loratadine (CLARITIN) 10 mg tablet Take 10 mg by mouth once daily. fluticasone (FLONASE) 50 mcg/actuation nasal spray Use 2 Sprays in each nostril once daily. Diaper,Brief, Adult,Disposable (DEPEND EASY FIT UNDERGARMENTS) 1 Package by MISCELLANEOUS route as needed. medroxyPROGESTERone (DEPO-PROVERA) 400 mg/mL susp Inject 400 mg intramuscularly every 12 weeks. sertraline (ZOLOFT) 50 mg tablet Take 50 mg by mouth daily at bedtime. tiZANidine (ZANAFLEX) 4 mg tablet Take 4 mg by mouth daily at bedtime. Alpha Lipoic Acid 600 mg cap Take 1 capsule by mouth twice daily. BACLOFEN ORAL Take 10 mg by mouth three times daily. gabapentin (NEURONTIN) 300 mg capsule Take 300 mg by mouth three times daily. BETA CAROTENE ORAL Take by mouth. No current facility-administered medications on file prior to visit. Social History Tobacco Use Smoking status: Every Day Packs/day: 1.00 Types: Cigarettes Smokeless tobacco: Never Vaping Use Vaping Use: Never used Substance Use Topics Alcohol use: No Drug use: No ALLERGIES Allergen Reactions Morphine Other: See Comments insomnia Ritalin [Methylphen* Other: See Comments hyperactive Review of Systems: Constitutional: denies fever, weight loss, loss of appetite ENT: denies loss of hearing, vertigo Vision: +blurring vison, -double vision/diplopia Dermatologic: denies rash Cardiopulmonary: denies chest pain, palpitations, or skipped heart beats Respiratory: denies shortness of breath GI: denies recent nausea, vomiting, diarrhea, constipation : denies incontinence Psych: denies depression, +/-anxiety, -suicidal thoughts Sleep: denies issues with sleeping Heme: denies easy bruising/bleeding Musculoskeletal: denies weakness, muscle atrophy, +joint ache/pain Back/spine: + low back, -mid back, -cervical pains Neuro: denies weakness, +tremors, loss of feeling, dizziness, seizure, blackout, paresthesia, facial paresthesia, facial weakness, difficulty in speech, slurring of words, dysarthria, dysphagia, memory loss, headache Physical Exam: 09/22/22 1411 BP: 113/71 BP Site: Left Arm BP Position: Sitting BP Cuff Size: Regular Adult Pulse: 70 Patient is alert and in no distress. Dress is appropriate. Mood is appropriate Heart is regular rate and rhythm with no murmur +bruit auscultated right Breathing appears regular and unstressed Neurologic examination: Cognitively intact. No deficits. No formal MMSE performed. CN: Pupils equal with corneal blurring left eye, extraocular movements intact with no nystagmus, face is slightly asymmetric with no facial droop, facial sensation intact bilaterally to light touch V1-3, hearing intact bilaterally, shoulder shrug is symmetric Motor exam: very thin build shows 5/5 strength symmetric through the upper and lower extremities in all groups tested with exception of left hip flexors 1-2/5, left leg flex/ext 2-3/5 foot dorsiflexion 4/5, plantarflexion 4/5. Right foot dorsiflexion 4/5. Sensory intact to light touch and temperature in all extremities. Vibratory sensation is intact and symmetric all extremities Deep tendon reflexes are symmetric at the biceps, brachioradialis, triceps, patella, and Achilles bilaterally Fletcher's responses are both flexion. Coordination: No dysmetria on finger to nose. No tremors noted. No drift seen Gait antalgic circumduction the left leg Labs/studies: EMG and nerve conduction study report of bilateral upper extremities 11/13/2020 noting normal conductions no evidence of cervical radiculopathy, plexopathy or myopathy noted. 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 No evidence of brachial plexopathy, No mononeuropathy entrapment of the median or radial nerves. No cervical radiculopathy seen. MRI cervical, thoracic spine report 10/10/1997 noting Cervical spine: Sagittal T1 and T2-weighted scans were acquired in addition to axial T1-weighted studies. On the sagittal scans, one can again appreciate the absence of cerebellar tonsils and abnormal appearance to the vermis consistent with the previous diagnosis round encephalosynapsis. The cervical medullary junction and cervical spinal cord are normal in size and signal intensity. No evidence of compression. Thoracic spine: Sagittal T1 and T2-weighted scans were acquired in addition to axial T1-weighted studies. Vertebral bodies, intervertebral disc, and posterior elements appear to be intact. Thoracic spinal cord is normal in size and signal intensity. No evidence of exogenous compression. No evidence of vascular malformation or synrinx cavity. ADDENDUM: Supplemental sagittal T1 images show the conus to terminate normally. The lumbosacral vertebra are normally aligned and normal in configuration and signal intensity. Outside blood work reviewed: 09/13/2020 TSH, T4, CBC, MG, CMP, lipid panel 02/23/2020 CBC, CMP, TSH, T4 Assessment: R25.1 Tremor (primary encounter diagnosis) Comment: more so myoclonic jerks as via description. Partial seizure as cause with shaking post event. M25.561, M25.562 Arthralgia of both lower legs Comment: Diffuse body aches and pains. R56.9 Convulsions, unspecified convulsion type (HCC) Comment: question of leg shakes, being either myoclonic jerk versus partial seizures Seizures Comment: as via given history absence/partial seizures question of leg issues and shakes being partial seizures more recently. PLAN: Chart reviewed including previous/interval progress notes, messages, recent imaging, and laboratory results. 2. Discussed options with the patient and after discussion she elects to the below. 3. Need and will review more than 76 pages of received records which were of previous neurologist records dating back to 2008 in regards to treatment of seizures. 6 pages of EMG results also noetd. 4. Discussed EEG to try and find the episodes she is having as seizures discussed as ambulatory EEG versus EMU- she elects to try EMU to clarify spells 5. OARRS report reviewed 6. In regards to the medications she does not want to change or alter medications at the moment. 7. Continue to perform home exercises as via physical therapy. 8. As via discussion will assume prescribing of gabapentin, baclofen, and tizanidine. May look at either increase to gabapentin in steps versus addition of other medication such as keppra in the future if EMU is showing seizures as the cause of her leg issues. Thank you for allowing me to see this patient if there are any question or concerns please feel free to contact me at my clinic. Sincerely, Tiago Guadalupe D.O. documented in this encounter [facility] 06-25-2022 Evaluation note Encounter Date Diagnosis Assessment Notes May, Right shoulder tendinitis (ICD-10 - M77.8) MRI results reviewed with patient and caregiver. Extensive discussion about current condition and treatment options available. This appears to be pain secondary to subacromial bursitis / rotator cuff tendonitis. We discussed and demonstrated gentle motion exercise and rotator cuff strengthening exercise. Discussed the use of non-steroidal anti-inflammator y medication. A 2/1cc marcaine / kenalog cortisone injection was performed into the subacromial space under sterile technique. Patient tolerated the injection well with no adverse reaction. We will provide an order for formal physical therapy. May, Acute pain of right shoulder (ICD-10 - M25.511) [employer] Other 09-09-2022 NotePROCEDURE: XR SHOULDER RT 2V or > HISTORY: Pain of right shoulder joint after falling COMPARISON: XR shoulder right 12/16/2023 FINDINGS: BONES:Prior resection of the distal end of the clavicle. No fracture, dislocation, bone lesion. Unremarkable glenohumeral joint. SOFT TISSUES:No visible soft tissue swelling. EFFUSION:None visible. OTHER: Negative. IMPRESSION: 1. No acute bone abnormality. 2. Stable surgical/posttraumatic changes. Electronically authenticated by: EVAN SOLOMON Date: 2022-05-08 18:42[facility] History of Past illness Narrative* Problem Noted Date Resolved Date Tobacco dependence 09/14/2020 12/11/2020 documented as of this encounter (statuses as of 09/30/2022) [facility]01-16-2021 History of Past illness Narrative* Problem Noted Date Resolved Date Tobacco dependence 09/14/2020 12/11/2020 documented as of this encounter (statuses as of 02/25/2023) [facility] Diagnosis Tremor- Primary Abnormal involuntary movements Arthralgia of both lower legs Convulsions, unspecified convulsion type (HCC) [facility] InformationNort Parrable Other Evaluation note* Diagnosis Depression, unspecified depression type (CMS/HCC) [facility] Diagnosis Non-seasonal allergic rhinitis, unspecified trigger [facility]* Diagnosis Severe protein-calorie malnutrition (CMS/HCC)- Primary Other severe protein-calorie malnutrition Seizure, absence (CMS/HCC) 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), spastic, diplegic (CMS/HCC) Diplegic infantile cerebral palsy Non-seasonal allergic rhinitis, unspecified trigger Lumbar paraspinal muscle spasm Other symptoms referable to back Depression, unspecified depression type (CMS/HCC) Mixed incontinence Mixed incontinence urge and stress (male)(female) Lumbar spondylosis Lumbosacral spondylosis without myelopathy Urge incontinence of urine Urge incontinence Chronic neck and back pain CP (cerebral palsy), spastic, 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 (HCC) (CMS/HCC) Seasonal allergies Allergic rhinitis, cause unspecified Hyperlipidemia, unspecified hyperlipidemia type (CMS/HCC) Anxiety Anxiety state, unspecified Encounter for wellness examination Screening mammogram for breast cancer Depression, unspecified depression type (CMS/HCC) Impacted cerumen of right ear Impacted cerumen Screening for colon cancer Special screening for malignant neoplasms, colon Non-recurrent acute serous otitis media of both ears- Primary Impacted cerumen of right ear Impacted cerumen Lumbar paraspinal muscle spasm Other symptoms referable to back [facility] Diagnosis Severe protein-calorie malnutrition (CMS/HCC)- Primary Other severe protein-calorie malnutrition Seizure, absence (CMS/HCC) 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), spastic, diplegic (CMS/HCC) Diplegic infantile cerebral palsy Non-seasonal allergic rhinitis, unspecified trigger Lumbar paraspinal muscle spasm Other symptoms referable to back Depression, unspecified depression type (CMS/HCC) Mixed incontinence Mixed incontinence urge and stress (male)(female) Lumbar spondylosis Lumbosacral spondylosis without myelopathy Urge incontinence of urine Urge incontinence Chronic neck and back pain CP (cerebral palsy), spastic, 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 (HCC) (CMS/HCC) Seasonal allergies Allergic rhinitis, cause unspecified Hyperlipidemia, unspecified hyperlipidemia type (CMS/HCC) Anxiety Anxiety state, unspecified Encounter for wellness examination Screening mammogram for breast cancer Depression, unspecified depression type (CMS/HCC) Impacted cerumen of right ear Impacted cerumen Screening for colon cancer Special screening for malignant neoplasms, colon Non-recurrent acute serous otitis media of both ears- Primary Impacted cerumen of right ear Impacted cerumen Non-seasonal allergic rhinitis, unspecified trigger [facility] Diagnosis Impacted cerumen of right ear- Primary Impacted cerumen [facility] Diagnosis Seasonal allergic rhinitis due to other allergic trigger- Primary [facility] Diagnosis Mixed incontinence Mixed incontinence urge and stress (male)(female) [facility] Diagnosis Non-recurrent acute serous otitis media of both ears- Primary Impacted cerumen of right ear Impacted cerumen [facility] Diagnosis Severe protein-calorie malnutrition (CMS/HCC)- Primary Other severe protein-calorie malnutrition Seizure, absence (CMS/HCC) 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), spastic, diplegic (CMS/HCC) Diplegic infantile cerebral palsy Non-seasonal allergic rhinitis, unspecified trigger Lumbar paraspinal muscle spasm Other symptoms referable to back Depression, unspecified depression type (CMS/HCC) Mixed incontinence Mixed incontinence urge and stress (male)(female) Lumbar spondylosis Lumbosacral spondylosis without myelopathy Urge incontinence of urine Urge incontinence Chronic neck and back pain CP (cerebral palsy), spastic, 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 (HCC) (CMS/[facility]) Seasonal allergies Allergic rhinitis, cause unspecified Hyperlipidemia, unspecified hyperlipidemia type (CMS/HCC) Anxiety Anxiety state, unspecified Encounter for wellness examination Screening mammogram for breast cancer Depression, unspecified depression type (CMS/HCC) Impacted cerumen of right ear Impacted cerumen Screening for colon cancer Special screening for malignant neoplasms, colon Non-recurrent acute serous otitis media of both ears- Primary Impacted cerumen of right ear Impacted cerumen Non-seasonal allergic rhinitis, unspecified trigger 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 Seasonal allergic rhinitis due to other allergic trigger Lumbar paraspinal muscle spasm Other symptoms referable to back Mixed incontinence Mixed incontinence urge and stress (male)(female) Depression, unspecified depression type (CMS/HCC) [facility] Diagnosis Severe protein-calorie malnutrition (CMS/HCC)- Primary Other severe protein-calorie malnutrition Seizure, absence (CMS/HCC) 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), spastic, diplegic (CMS/HCC) Diplegic infantile cerebral palsy Non-seasonal allergic rhinitis, unspecified trigger Lumbar paraspinal muscle spasm Other symptoms referable to back Depression, unspecified depression type (CMS/HCC) Mixed incontinence Mixed incontinence urge and stress (male)(female) Lumbar spondylosis Lumbosacral spondylosis without myelopathy Urge incontinence of urine Urge incontinence Chronic neck and back pain CP (cerebral palsy), spastic, 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 (HCC) (CMS/HCC) Seasonal allergies Allergic rhinitis, cause unspecified Hyperlipidemia, unspecified hyperlipidemia type (CMS/HCC) Anxiety Anxiety state, unspecified Encounter for wellness examination Screening mammogram for breast cancer Depression, unspecified depression type (CMS/HCC) Impacted cerumen of right ear Impacted cerumen Screening for colon cancer Special screening for malignant neoplasms, colon Non-recurrent acute serous otitis media of both ears- Primary Impacted cerumen of right ear Impacted cerumen CP (cerebral palsy), spastic, 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 Non-seasonal allergic rhinitis, unspecified trigger 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 Seasonal allergic rhinitis due to other allergic trigger Lumbar paraspinal muscle spasm Other symptoms referable to back Mixed incontinence Mixed incontinence urge and stress (male)(female) Depression, unspecified depression type (CMS/HCC) Acquired spondylolisthesis of lumbosacral region Anxiety Anxiety state, unspecified [facility] Diagnosis Severe protein-calorie malnutrition (CMS/HCC)- Primary Other severe protein-calorie malnutrition Seizure, absence (CMS/HCC) 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), spastic, diplegic (CMS/HCC) Diplegic infantile cerebral palsy Non-seasonal allergic rhinitis, unspecified trigger Lumbar paraspinal muscle spasm Other symptoms referable to back Depression, unspecified depression type (CMS/HCC) Mixed incontinence Mixed incontinence urge and stress (male)(female) Lumbar spondylosis Lumbosacral spondylosis without myelopathy Urge incontinence of urine Urge incontinence Chronic neck and back pain CP (cerebral palsy), spastic, 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 (HCC) (CMS/HCC) Seasonal allergies Allergic rhinitis, cause unspecified Hyperlipidemia, unspecified hyperlipidemia type (CMS/HCC) Anxiety Anxiety state, unspecified Encounter for wellness examination Screening mammogram for breast cancer Depression, unspecified depression type (CMS/HCC) Impacted cerumen of right ear Impacted cerumen Screening for colon cancer Special screening for malignant neoplasms, colon Non-recurrent acute serous otitis media of both ears- Primary Impacted cerumen of right ear Impacted cerumen CP (cerebral palsy), spastic, 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 Non-seasonal allergic rhinitis, unspecified trigger 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 Seasonal allergic rhinitis due to other allergic trigger Lumbar paraspinal muscle spasm Other symptoms referable to back Mixed incontinence Mixed incontinence urge and stress (male)(female) Depression, unspecified depression type (CMS/HCC) Acquired spondylolisthesis of lumbosacral region Anxiety Anxiety state, unspecified 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 [facility] Corneal melt, left- Primary [facility] Corneal melt, left- Primary [facility] Diagnosis Severe protein-calorie malnutrition (CMS/HCC)- Primary Other severe protein-calorie malnutrition Seizure, absence (CMS/HCC) 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), spastic, diplegic (CMS/HCC) Diplegic infantile cerebral palsy Non-seasonal allergic rhinitis, unspecified trigger Lumbar paraspinal muscle spasm Other symptoms referable to back Depression, unspecified depression type (CMS/HCC) Mixed incontinence Mixed incontinence urge and stress (male)(female) Lumbar spondylosis Lumbosacral spondylosis without myelopathy Urge incontinence of urine Urge incontinence Chronic neck and back pain CP (cerebral palsy), spastic, 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 (HCC) (CMS/HCC) Seasonal allergies Allergic rhinitis, cause unspecified Hyperlipidemia, unspecified hyperlipidemia type (CMS/HCC) Anxiety Anxiety state, unspecified Encounter for wellness examination Screening mammogram for breast cancer Depression, unspecified depression type (CMS/HCC) Impacted cerumen of right ear Impacted cerumen Screening for colon cancer Special screening for malignant neoplasms, colon Non-recurrent acute serous otitis media of both ears- Primary Impacted cerumen of right ear Impacted cerumen CP (cerebral palsy), spastic, 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 Non-seasonal allergic rhinitis, unspecified trigger 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 Seasonal allergic rhinitis due to other allergic trigger Lumbar paraspinal muscle spasm Other symptoms referable to back Mixed incontinence Mixed incontinence urge and stress (male)(female) Depression, unspecified depression type (CMS/HCC) Acquired spondylolisthesis of lumbosacral region Anxiety Anxiety state, unspecified Encounter for subsequent annual wellness visit (AWV) in Medicare patient- Primary CP (cerebral palsy), spastic, diplegic (CMS/HCC) Diplegic infantile cerebral palsy Seizure disorder (CMS/HCC) Unspecified epilepsy without mention of intractable epilepsy Severe protein-calorie malnutrition (CMS/HCC) Other severe protein-calorie malnutrition Underweight Anxiety Anxiety state, unspecified Mild episode of recurrent major depressive disorder (HCC) (CMS/HCC) Tobacco dependence Tobacco use disorder documented in this encounter [facility] N[facility] - Reported* Type Description Date Medical History seizures Medical History gross motor disorder/development al anomaly Medical History cerebral palsy Surgical History eyes Surgical History [facility] [employer] Other Summary Purpose Family History No Family History Records FoundNo Family History Records FoundNo Family History Records FoundNo Family History Records FoundNo Family History Records FoundNo Family History Records Found Advance Directives No Advanced Directives Records FoundNo Advanced Directives Records FoundNo Advanced Directives Records FoundNo Advanced Directives Records FoundNo Advanced Directives Records FoundNo Advanced Directives Records Found Additional Source Comments INFORMATION SOURCE (unrecogn ized section and content) DATE CREATED AUTHOR 03/17/2021 [facility] DATE CREATED AUTHOR AUTHOR'S ORGANIZ ATION 07/17/2021 [facility] DATE CREATED AUTHOR AUTHOR'S ORGANIZ ATION 11/21/2021 [facility] DATE CREATED AUTHOR AUTHOR'S ORGANIZ ATION 08/25/2022 [facility] DATE CREATED AUTHOR AUTHOR'S ORGANIZ ATION 10/29/2024 [facility] EPIC DATE CREATED AUTHOR AUTHOR'S ORGANIZ ATION 11/08/2024 [facility] REASON FOR VISIT (unrecogniz ed section and content) Reason Comments New Patient Reason Comments Refill Request Reason Comments Med Refill Reason Onset Date Comments Med Refill 06/12/2024 Reason Onset Date Comments Med Refill 04/25/2024 Results 04/25/2024 PT INFORMED AND VOICED UNDERSTANDING. 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 Reason Comments Information Reason Comments Sterile melt, left eye Follow up Source Comments (unrecognize d section and content) In the event this informatio n is protected by the Federal Confidentiality of Alcohol and Drug Abuse Patient Records regulations: The Federal rules restrict any use of the information to criminally investigate or prosecute any alcohol or drug abuse patient.[facility] the event this information is protected by the Federal Confidentiality of Alcohol and Drug Abuse Patient Records regulations: The Federal rules restrict any use of the information to criminally investigate or prosecute any alcohol or drug abuse patient.[facility] the event this information is protected by the Federal Confidentiality of Alcohol and Drug Abuse Patient Records regulations: The Federal rules restrict any use of the information to criminally investigate or prosecute any alcohol or drug abuse patient.[facility] the event this information is protected by the Federal Confidentiality of Alcohol and Drug Abuse Patient Records regulations: The Federal rules restrict any use of the information to criminally investigate or prosecute any alcohol or drug abuse patient.[facility] the event this information is protected by the Federal Confidentiality of Alcohol and Drug Abuse Patient Records regulations: The Federal rules restrict any use of the information to criminally investigate or prosecute any alcohol or drug abuse patient.[facility] the event this information is protected by the Federal Confidentiality of Alcohol and Drug Abuse Patient Records regulations: The Federal rules restrict any use of the information to criminally investigate or prosecute any alcohol or drug abuse patient.[facility] Teams (unrecognized sec tion and content) Career Law Clerk Relationship Specialty Start Date End Date Johanne Enriquez, CONTROLS OPERATOR [employer] [address] [place] [address] PCP - General Internal Medicine 08/20/20 Career Law Clerk Relationship Specialty Start Date End Date Johanne Enriquez, CONTROLS OPERATOR [employer] [address] [place] [address] PCP - General Internal Medicine 08/20/20 Career Law Clerk Relationship Specialty Start Date End Date Shaikh Sauceda MD PCP - General Internal Medicine 08/30/22 Career Law Clerk Relationship Specialty Start Date End Date Michael Mulligan MD [address] [place] [phone] PCP - General Family Medicine 03/29/24 Damir Berger NP [address] [place] [phone] Nurse Practitioner Family Medicine 03/29/24 Career Law Clerk Relationship Specialty Start Date End Date Michael Mulligan MD [address] [place] [phone] PCP - General Family Medicine 03/29/24 Damir Berger NP [address] [place] [phone] Nurse Practitioner Family Medicine 03/29/24 Career Law Clerk Relationship Specialty Start Date End Date Michael Mulligan MD [address] [place] [phone] PCP - General Family Medicine 03/29/24 Shaikh Sauceda MD [address] [place] [phone] PCP - S [facility] 05/30/24 Damir Berger NP [address] [place] [address] Nurse Practitioner Family Medicine 03/29/24 Career Law Clerk Relationship Specialty Start Date End Date Michael Mulligan MD [address] [place] [phone] PCP - General Family Medicine 03/29/24 Shaikh Sauceda MD [address] [place] [phone] PCP [facility] 05/30/24 Damir Berger NP [address] [place] [address] Nurse Practitioner Family Medicine 03/29/24 Career Law Clerk Relationship Specialty Start Date End Date Michael Mulligan MD [address] [place] [phone] PCP - General Family Medicine 03/29/24 Damir Berger NP [address] [place] [address] Nurse Practitioner Family Medicine 03/29/24 Career Law Clerk Relationship Specialty Start Date End Date Michael Mulligan MD [address] [place] [phone] PCP - General Family Medicine 03/29/24 Damir Berger NP [address] [place] [address] Nurse Practitioner Family Medicine 03/29/24 Career Law Clerk Relationship Specialty Start Date End Date Michael Mulligan MD [address] [place] [phone] PCP - General Family Medicine 03/29/24 Damir Berger NP [address] [place] [address] Nurse Practitioner Family Medicine 03/29/24 Career Law Clerk Relationship Specialty Start Date End Date Michael Mulligan MD [address] [place] [phone] PCP - General Family Medicine 03/29/24 Damir Berger NP [address] [place] [address] Nurse Practitioner Family Medicine 03/29/24 Career Law Clerk Relationship Specialty Start Date End Date Michael Mulligan MD [address] [place] [phone] PCP - General Family Medicine 03/29/24 Damir Berger NP [address] [place] [address] Nurse Practitioner Family Medicine 03/29/24 Career Law Clerk Relationship Specialty Start Date End Date Michael Mulligan MD [address] [place] [phone] PCP - General Family Medicine 03/29/24 Shaikh Sauceda MD [address] [place] [phone] PCP - S [facility] 05/30/24 Damir Berger NP [address] [place] [address] Nurse Practitioner Family Medicine 03/29/24 Career Law Clerk Relationship Specialty Start Date End Date Michael Mulligan MD [address] [place] [phone] PCP - General Family Medicine 03/29/24 Shaikh Sauceda MD [address] [place] [phone] PCP - S [facility] 05/30/24 Damir Berger NP [address] [place] [address] Nurse Practitioner Family Medicine 03/29/24 Career Law Clerk Relationship Specialty Start Date End Date Michael Mulligan MD [address] [place] [address] PCP - General Family Medicine 03/29/24 Shaikh Sauceda MD [address] [place] [phone] PCP - S [facility] 05/30/24 Damir Berger NP [address] [place] [address] Nurse Practitioner Family Medicine 03/29/24 Career Law Clerk Relationship Specialty Start Date End Date Michael Mulligan MD [address] [place] [phone] PCP - General Family Medicine 03/29/24 Shaikh Sauceda MD [address] [place] [phone] PCP [facility] 05/30/24 Damir Berger, SUPERVISOR FISH HATCHERY [address] [place] [address] Nurse Practitioner Family Medicine 03/29/24 Career Law Clerk Relationship Specialty Start Date End Date Michael Mulligan MD [address] [place] [phone] PCP - General Family Medicine 03/29/24 Shaikh Sauceda MD [address] [place] [phone] PCP - FFS [facility] 05/30/24 Damir Berger NP [address] [place] [address] Nurse Practitioner Family Medicine 03/29/24 Career Law Clerk Relationship Specialty Start Date End Date Johanne Enriquez CNP PCP - General Internal Medicine 08/20/20 Career Law Clerk Relationship Specialty Start Date End Date Johanne Enriquez CNP PCP - General Internal Medicine 08/20/20 Career Law Clerk Relationship Specialty Start Date End Date Johanne Enriquez CNP PCP - General Internal Medicine 08/20/20 Career Law Clerk Relationship Specialty Start Date End Date Johanne Enriquez CNP PCP - General Internal Medicine 08/20/20 Career Law Clerk Relationship Specialty Start Date End Date Michael Mulligan MD [address] [place] [phone] PCP - General Family Medicine 03/29/24 Shaikh Sauceda MD [address] [place] [phone] PCP - S [facility] 05/30/24 Damir Berger, MARKUS [address] [place] [address] Nurse Practitioner Family Medicine 03/29/24 Career Law Clerk Relationship Specialty Start Date End Date Michael Mulligan MD [address] [place] [phone] PCP - General Family Medicine 03/29/24 Shaikh Sauceda MD [address] [place] [address] PCP - [facility] 05/30/24 Damir Berger NP [address] [place] [address] Nurse Practitioner Family Medicine 03/29/24 FOR RECORDS PERTAINING TO PATIENTS WHO ARE OR HAVE BEEN ENROLLED IN A CHEMICAL DEPENDENCY/SUBSTANCEABUSE PROGRAM, SOME INFORMATION MAY BE OMITTED. This clinical summary was aggregated from multiple sources. Caution should be exercised in using it in the provision of clinical care. This summary normalizes information from multiple sources, and as a consequence, information in this document may materially change the coding, format and clinical context of patient data. In addition, data may be omitted in some cases. CLINICAL DECISIONS SHOULD BE BASED ON THE PRIMARY CLINICAL RECORDS. [facility]. provides no warranty or guarantee of the accuracy or completeness of information in this document.
[2024-11-10 11:28] LABS: Alanine Aminotransferase 16 U/L (14-59); Albumin Globulin Ratio 0.9; Albumin Level 3.5 g/dL (3.4-5.0); Alkaline Phosphatase 82 U/L (46-116); Anion Gap 12.7; Aspartate Amino Transferase 25 U/L (15-37); BUN Creatinine Ratio 15.3; Bilirubin Total 0.2 mg/dL (0.2-1.0); Calcium 8.9 mg/dL (8.5-10.1); Carbon Dioxide 29.6 mmol/L (21.0-32.0); Chloride 103 mmol/L (98-107); Estimated GFR (African America >60 (>=60 mL/min/1.73m^2); Estimated GFR (Non-African Ame >60 (>=60 mL/min/1.73m^2); Glucose 62 mg/dL (74-106); Magnesium 1.9 mg/dL (1.8-2.4); Potassium 3.3 mmol/L (3.5-5.1); Prealbumin 23.5 mg/dL (20.9-45.5); Sodium 142 mmol/L (136-145); Thyroid Stimulating Hormone 1.506 uIU/mL (0.358-3.740); Total Protein 7.5 g/dL (6.4-8.2)
[2024-11-10 11:29] LABS: Percent Iron Saturation 11.5 %
[2024-11-10 11:56] LABS: Free T4 0.87 ng/dL (0.76-1.46)
[2024-11-11 04:07] LABS: Transferrin 274 mg/dL (192-364)
[2024-11-11 05:07] LABS: Vitamin B12 429 pg/mL (232-1245)
== END 2024-11-10 09:32 | disposition home or self-care (01) ==
LOC: LAB 09:31
PROVIDERS: PCP Nurse Practitioner; Visit Provider Nurse Practitioner
DX: G40.909 Epilepsy, unspecified, not intractable, without status epilepticus (principal); E43 Unspecified severe protein-calorie malnutrition; F41.9 Anxiety disorder, unspecified; F17.200 Nicotine dependence, unspecified, uncomplicated
CPT/HCPCS: 36415; 80053; 82306; 82607; 82728; 82746; 83540; 83550; 83735; 84134; 84439; 84443; 84466

== ENCOUNTER 2025-06-09 15:39 | Emergency (ER) | payer MEDICARE, MEDICAID, SELFPAY ==
--- OUTSIDE RECORDS SUMMARY | 2025-06-05 11:15 | XMS_ITS ---
Author Organization [facility] vices Address [address] [place], [place] [phone] Care Team Providers Care Terminal Clerk Name Role Phone Radha Shaw Primary Care Provider REASON FOR VISIT ARNOL Encounters Encounter Location Date Provider Diagnosis Main [address] [place], [place] [id number] 06/05/2025 Radha Shaw Cannabis abuse F12.1 0 Assessments Encounter Date Diagnosis (ICD Code) Assessment Notes Treatment Notes Treatment Clinical Notes Section Notes 06/05/2025 Cannabis abuse (ICD-10 - F12.10) Plan Of Treatment Next Appt Details Follow Up: 2 Weeks, Reason: ARNOL F/u; please call pt. for an in-office appointment w/provider. Progress Notes * Michelle STANLEYDOB: [birth year] (45 yo F)Acc No.[id number]:06/05/2025 Patient: Michelle LIRA Provider: MICK Cabrera :1980 A ge:45 Y S ex:Female Date:06/05/2025 Address:[address] [place], [place] [phone] Data: * Chief Complaints: * S UD * Medications: Assessment: * Assessment: 1. C annabis abuse - F12.10 (Primary) Plan: * Treatment: * Procedure Codes: * Follow Up: 2 Weeks (Reason: ARNOL F/u; please call pt. for an in-office appointment w/provider.) * Billing Information: * Visit Code: 81138 Psychotherapy (38-52 minutes). Modifiers: HN * Procedure Codes: * Sign off status: Completed Signatures: No Ad Hoc Signature Added true * Provider: MICK Cabrera Date: 1 Generated for Susan rosario/Andry/Ashanti on: 03:46 PM EDT
[2025-06-09 15:46] VITALS: BP 117/71; PULSE 84; TEMP 36.5; O2SAT 96; BMI 16.2
--- OUTSIDE RECORDS SUMMARY | 2025-06-09 15:46 | XMS_ITS | Encounter Summary ---
Author Organization [place] tem Address [facility]-[id number] [address] [place] [address] Care Team Providers Care Fundraising Consultant Name Role Phone Johanne Allen TIRE SPECIALIST-COLLEGE PROFESSOR Primary Care Provider [phone]- [phone] Encounter Details Date Type Department Care Team (Late st Contact Info) Description 04/14/2021 Telephone [facility] Internal Medicine/Placido Alvarez MD [address] [facility] [address] [place] [phone] Johanne Allen APRN-CNP [address] [facility] [address] [place] [address] Social History Tobacco Use Types Packs/Day Years Used Date Smoking Tobacco: Every Day Cigarettes 1 18 Smokeless Tobacco: Never Alcohol Use Standard Drinks/Week Comments Yes 0 (1 standard drink = 0.6 oz pur e alcohol) Rare Childcare Answer Date Recorded Childcare Unknown 02/06/2019 Employment Answer Date Recorded Employment Unknown 02/06/2019 Purpose - Life Answer Date Recorded Purpose and direction in life Unknown Comments No Sex and Gender Information Value Date Recorded Sex Assigned at Not on file Legal Sex Female 1:50 PM EDT Gender Identity Not on file Sexual Orientation Not on file COVID-19 Exposure Response Date Recorded In the last month, have you been in contact with someone who was confirmed or suspected to have Coronavirus / COVID-19? No / Unsure 04/11/2021 1:44 PM EDT documented as of this encounter Miscellaneous Notes * Telephone Encounter - Janis Lombardi - 04/14/2021 7:41 AM EDT ----- Message from Michelle Stanley sent at 04/13/2021 12:27 PM EDT ----- Regarding: Test Results Question Contact: The reminder reads Michelle needs a mammography. She had that done in February at the [facility]. You should have results by now. Veronica was looking into that. Britt Manjarrez Please reply to this message by [phone] Britt Manjarrez, home. * Telephone Encounter - Janis Lombardi - 04/14/2021 7:41 AM EDT See Message documented in this encounter Plan of Treatment Not on file documented as of this encounter Visit Diagnoses Not on filedocumented in this encounter Care Teams Fundraising Consultant Relationship Specialty Start Date End Date Johanne Allen APRN-CARMEN [address] [place] [address] PCP - General Internal Medicine 02/23/20 documented as of this encounter
--- OUTSIDE RECORDS SUMMARY | 2025-06-09 15:46 | XMS_ITS | Encounter Summary ---
Author Organization [employer] [facility] tem Address [id number] [address] [place] [address] Care Team Providers Care Internet Network Specialist Name Role Phone Johanne Allen CUSTODIAN MANAGER-ORACLE DATABASE CONSULTANT Primary Care Provider [phone]- [phone] Encounter Details Date Type Department Care Team (Late st Contact Info) Description 09/18/2020 Telephone [facility] Cardiology [address] [place] [phone] Milton Ramon MD Social History Tobacco Use Types Packs/Day Years [...] have Coronavirus / COVID-19? No / Unsure 09/13/2020 3:06 PM EST documented as of this encounter Miscellaneous Notes * Telephone Encounter - Dawna Lepe LPN - 09/18/2020 11:18 AM EST PLACED CALL TO PT AND NO ANSWER AND NOT ABLE TO L/M. documented in this encounter Plan of Treatment Not on file documented as of this encounter Visit Diagnoses Not on filedocumented in this encounter Care Teams Internet Network Specialist Relationship Specialty Start Date End Date Johanne Allen APRN-CARMEN [address] [place] [address] PCP - General Internal Medicine 02/23/20 documented as of this encounter
--- OUTSIDE RECORDS SUMMARY | 2025-06-09 15:46 | XMS_ITS | Encounter Summary ---
Author Organization [facility] Address [id number] [address] [place] [address] Care Team Providers Care Activities Assistant Name Role Phone Johanne Allen CUTTER HEAD SHARPENER-CENTRAL OFFICE REPAIRER Primary Care Provider [phone]- [phone] Encounter Details Date Type Department Care Team (Late st Contact Info) Description 03/07/2021 Orders Only [facility] Internal Medicine/Placido Alvarez MD [address] [facility] [address] [place] [address] Johanne Allen APRN-CNP [address] [facility] [address] [place] [address] Gross motor impairment; Urinary incontinence, unspecified type Social History Tobacco Use Types Packs/Day Years [...] have Coronavirus / COVID-19? No / Unsure 03/04/2021 3:35 PM EDT documented as of this encounter Plan of Treatment Not on file documented as of this encounter Visit Diagnoses Diagnosis Gross motor impairment Other specified conditions influencing health status Urinary incontinence, unspecified type documented in this encounter Care Teams Activities Assistant Relationship Specialty Start Date End Date Johanne Allen APRN-CARMEN [address] [place] [phone] PCP - General Internal Medicine 02/23/20 documented as of this encounter
--- OUTSIDE RECORDS SUMMARY | 2025-06-09 15:46 | XMS_ITS | Encounter Summary ---
Author Organization [employer] [facility] tem Address [id number] [address] [place] [address] Care Team Providers Care Field Marketing Associate Name Role Phone Johanne Allen FINANCIAL COMPLIANCE OFFICER-ISOTOPE HYDROLOGIST Primary Care Provider +1- [phone] Encounter Details Date Type Department Care Team (Late st Contact Info) Description 09/16/2020 Telephone [facility]/Placido Alvarez MD [address] [place] [phone] Veronica Christine RMA Social History Tobacco Use Types Packs/Day Years [...] encounter Miscellaneous Notes * Telephone Encounter - JOHN Siddiqui - 09/16/2020 1:31 PM EST Pt called to let you know she is getting EKG today at 5:30pm at [facility]. I told her to have them fax results to [facility]. Pt having surgery 09/18/20. JOHN Siddiqui 09/16/20 1335 * Telephone Encounter - MASOUD Solano - 09/16/2020 1:31 PM EST Will watch for it thanks documented in this encounter Plan of Treatment Not on file documented as of this encounter Visit Diagnoses Not on filedocumented in this encounter Care Teams Field Marketing Associate Relationship Specialty Start Date End Date Johanne Allen APRN-CNP [address] [place] [address] PCP - General Internal Medicine 02/23/20 documented as of this encounter
--- OUTSIDE RECORDS SUMMARY | 2025-06-09 15:46 | XMS_ITS | Encounter Summary ---
Author Organization [facility] tem Address [id number] [address] [place] [address] Care Team Providers Care Coat Maker Name Role Phone Johanne Allen PATENT PROSECUTION PARALEGAL-TAX ASSOCIATE ATTORNEY Primary Care Provider +1- [phone] Encounter Details Date Type Department Care Team (Late st Contact Info) Description 04/14/2021 Telephone [facility]/Placido Alvarez MD [address] [facility] [address] [place] [phone] Johanne Allen APRN-CNP [address] [facility] [address] [place] [address] Social History Tobacco Use Types Packs/Day Years [...] Telephone Encounter - Janis Lombardi - 04/14/2021 7:42 AM EDT ----- Message from Michelle Stanley sent at 04/13/2021 12:33 PM EDT ----- Regarding: Test Results Question Contact: I found the date of February 25 on my calendar... not February of 2021. I believe that was Michelle's Mammography. I drove, so I know she was there. Britt Manjarrez Please reply to this message by [phone] Britt Manjarrez, home... the [phone] is my cell phone . . * Telephone Encounter - Janis Lombardi - 04/14/2021 7:42 AM EDT See Message * Telephone Encounter - MASOUD Solano - 04/14/2021 7:42 AM EDT Please retrieve and update our records. documented in this encounter Plan of Treatment Not on file documented as of this encounter Visit Diagnoses Not on filedocumented in this encounter Care Teams Coat Maker Relationship Specialty Start Date End Date Johanne Allen APRN-CNP [address] [place] [address] PCP - General Internal Medicine 02/23/20 documented as of this encounter
--- OUTSIDE RECORDS SUMMARY | 2025-06-09 15:46 | XMS_ITS | Encounter Summary ---
Author Organization [facility] [employer] [facility] [employer] [facility] tem Address [id number] [address] [place] [address] Care Team Providers Care Telesales Team Leader Name Role Phone Johanne Allen Primary Care Provider [phone] Reason for Referral * Consultation (Routine) - Closed Specialty Diagnoses / Procedures Referred By Contac t Referred To Contact Cardiology Diagnoses Encounter for pre-operative cardiovascular clearance Abnormal EKG Johanne Allen APRN-CNP [address] [facility] [address] [place] [address] Phone: tel: fax: [facility] [address] [place] [phone] Phone: tel: fax: Referral ID Status Reason Start Date Expiration Date V isits Requested Visits Authorized [id number] Closed Specialty Services Required 09/17/2020 09/17/2021 1 1 Encounter Details Date Type Department Care Team (Late st Contact Info) Description 09/17/2020 Telephone [facility]/Placido Alvarez MD [address] [facility] [address] [place] [phone] Johanne Allen APRN-CNP [address] [facility] [address] [place] [address] Social History Tobacco Use Types Packs/Day Years [...] * Telephone Encounter - Janis Lombardi - 09/17/2020 11:04 AM EST Patient called, ask about results of EKG, Her # [phone] * Telephone Encounter - MASOUD Solano - 09/17/2020 11:04 AM EST EKG is abnormal. Pt will need to see cardiology for preop clearance. Referral in * Telephone Encounter - Janis Lombardi - 09/17/2020 11:04 AM EST Called and spoke with patient relayed message, Rescheduled appt with Johanne for 10/11/2020 PC office @ 4 pm. Informed [facility] will call pt to schedule appt. Patient will call [facility] to cancel Surgery for tomorrow. Needs Clearance from Cardiology. documented in this encounter Plan of Treatment Scheduled Referrals Name Type Priority Associated Diagnoses Orde r Schedule [facility] [place], [place] Outpatient Referral Routine Encounter for pre-operative cardiovascular clearance Abnormal EKG 1 Occurrences starting 09/17/2020 until 03/17/2021 documented as of this encounter Visit Diagnoses Diagnosis Encounter for pre-operative cardiovascular clearance- Primary Abnormal EKG Nonspecific abnormal electrocardiogram (ECG) (EKG) documented in this encounter Care Teams Telesales Team Leader Relationship Specialty Start Date End Date Johanne Allen APRN-CARMEN [address] [place] [address] PCP - General Internal Medicine 02/23/20 documented as of this encounter
--- OUTSIDE RECORDS SUMMARY | 2025-06-09 15:46 | XMS_ITS | Encounter Summary ---
Author Organization [facility] Address [address] [place] [address] Care Team Providers Care Dance Teacher Name Role Phone Johanne Allen STEAM FITTER HELPER Primary Care Provider [phone]- [phone] Susan Harden STEAM FITTER HELPER Unavailable [phone] Source Comments In the event this information is protected by the Federal Confidentiality of Alcohol and Drug AbusePatient Records regulations: The Federal rules restrict any use of the information to criminally investigate or prosecute any alcohol or drug abuse patient.[facility] Encounter Details Date Type Department Care Team (Late st Contact Info) Description 11/06/2024 Patient [facility] [place] [address] [place] [address] Provider, [facility] New Appointment Social History Tobacco Use Types Packs/Day Years Used Date Smoking Tobacco: Every Day Cigarettes Smokeless Tobacco: Never Alcohol Use Standard Drinks/Week Comments No 0 (1 standard drink = 0.6 oz pur e alcohol) PHQ-2 Answer Date Recorded PHQ-2 score 1 09/16/2022 Area Deprivation Index Answer Date Rudy rded National Score (1-100), lower number is lower ri sk 79 11/01/2024 State Score (1-10), lower number is lower risk 7 11/01/2024 Data from: https://www.neighborhoodatlas.medicine.[facility]/. Last address used for calculation [address] 11/01/2024 Comments No Sex and Gender Information Value Date Recorded Sex Assigned at Female 03/20/2021 1:49 PM EDT Legal Sex Female 8:48 AM EST Gender Identity Female 03/20/2021 1:49 PM EDT Sexual Orientation Not on file documented as of this encounter Plan of Treatment Upcoming Encounters Date Type Department Care Team (Late st Contact Info) Description 06/25/2025 3:00 PM EDT Office Visit [facility] [address] [place] [address] Saranya Dee MD [address] [place] [address] CP (Cerebral Palsy) documented as of this encounter Visit Diagnoses Not on filedocumented in this encounter Care Teams Dance Teacher Relationship Specialty Start Date End Date Johanne Allen CNP PCP - General Internal Medicine 08/20/20 Susan Harden CNP [address] [place] [address] Family Medicine 04/13/25 documented as of this encounter
--- OUTSIDE RECORDS SUMMARY | 2025-06-09 15:46 | XMS_ITS | Encounter Summary ---
Author Organization [facility] tem Address [id number] [address] [place] [address] Care Team Providers Care Skilled Nursing Facility Counselor Name Role Phone Johanne Allen LAW SECRETARY-SENIOR DATA MINING ANALYST Primary Care Provider [phone]- [phone] Encounter Details Date Type Department Care Team (Late st Contact Info) Description 10/09/2020 Orders Only [facility]/Placido Alvarez MD [address] [place] [phone] Catherine Travis LPN Irregular heartbeat Social History Tobacco Use Types Packs/Day Years [...] have Coronavirus / COVID-19? No / Unsure 10/01/2020 3:36 PM EST documented as of this encounter Plan of Treatment Not on file documented as of this encounter Procedures Procedure Name Priority Date/Time Associated Diagnosis Comments ECG 12-LEAD Routine 09/17/2020 Irregular heartbeat documented in this encounter Results * ECG 12 lead (09/17/2020) 09/17/2020 Johanne Allen LAW SECRETARY-SENIOR DATA MINING ANALYST ECG ORDERABLES Final Resul t TRACEMASTERVUE documented in this encounter Visit Diagnoses Diagnosis Irregular heartbeat Unspecified cardiac dysrhythmia documented in this encounter Care Teams Skilled Nursing Facility Counselor Relationship Specialty Start Date End Date Johanne Allen APRN-CNP [address] [place] [address] PCP - General Internal Medicine 02/23/20 documented as of this encounter
--- OUTSIDE RECORDS SUMMARY | 2025-06-09 15:46 | XMS_ITS | Encounter Summary ---
Author Organization [email or web address] [facility] tem Address [id number] [address] [place] [address] Care Team Providers Care Buffing And Polishing Wheel Repairer Name Role Phone Johanne Allen FACTORY SUPERVISOR-SOFTBALL COACH Primary Care Provider [phone]- [phone] Encounter Details Date Type Department Care Team (Late st Contact Info) Description 04/23/2021 Orders Only [facility]/Placido Alvarez MD [address] [place] [phone] Catherine Travis LPN Encounter for screening mammogram for malignant neoplasm of breast Social History Tobacco Use Types Packs/Day Years [...] Procedure Name Priority Date/Time Associated Diagnosis Comments MAMM SCREENING BILATERAL W CAD Routine 04/23/2021 2:28 PM EDT Encounter for screening mammogram for malignant neoplasm of breast documented in this encounter Results * Mammography screening bilateral with CAD (04/23/2021 2:28 PM EDT) Anatomical Region Laterality Modality Breast Bilateral Mammography Johanne Allen APRN-CARMEN IMG MAMMOGRAPHY ORDERABLES Final Result documented in this encounter Visit Diagnoses Diagnosis Encounter for screening mammogram for malignant neoplasm of breast documented in this encounter Care Teams Buffing And Polishing Wheel Repairer Relationship Specialty Start Date End Date Johanne Allen APRN-CNP [address] [place] [address] PCP - General Internal Medicine 02/23/20 documented as of this encounter
--- OUTSIDE RECORDS SUMMARY | 2025-06-09 15:46 | XMS_ITS | Encounter Summary ---
Author Organization [facility] tem Address [id number] [address] [place] [address] Care Team Providers Care Phlebotomist Supervisor/Instructor Name Role Phone Johanne Allen Primary Care Provider [phone]- [phone] Encounter Details Date Type Department Care Team (Late st Contact Info) Description 10/30/2020 Telephone [facility]/Placido Alvarez MD [address] [facility] [address] [place] [phone] Johanne Allen APRN-CNP [address] [facility] [address] [place] [address] Social History Tobacco Use Types Packs/Day Years [...] have Coronavirus / COVID-19? No / Unsure 10/18/2020 9:29 AM EST documented as of this encounter Plan of Treatment Not on file documented as of this encounter Visit Diagnoses Not on filedocumented in this encounter Care Teams Phlebotomist Supervisor/Instructor Relationship Specialty Start Date End Date Johanne Allen APRN-CNP [address] [place] [address] PCP - General Internal Medicine 02/23/20 documented as of this encounter
--- OUTSIDE RECORDS SUMMARY | 2025-06-09 15:47 | XMS_ITS | Encounter Summary ---
Author Organization [employer] [facility] tem Address [id number] [address] [place] [address] Care Team Providers Care Extrusion Line Operator Name Role Phone Johanne Allen USER EXPERIENCE LEAD-RENTAL CAR FERRY DRIVER Primary Care Provider [phone] Encounter Details Date Type Department Care Team (Late st Contact Info) Description 04/01/2022 Telephone [facility] [address] [facility] [place] [phone] Ayan Aggarwal CMA Social History Tobacco Use Types Packs/Day Years [...] on file Sexual Orientation Not on file documented as of this encounter Miscellaneous Notes * Telephone Encounter - Ayan Mariano CMA - 04/01/2022 9:01 AM EDT Cesar states that the patient needs a prescription for chucks for incontinence. Medicaid will pay for it but Cesar would like to know if our office can order it and fax the script to her office so she can help the pt get them. documented in this encounter Plan of Treatment Not on file documented as of this encounter Visit Diagnoses Not on filedocumented in this encounter Care Teams Extrusion Line Operator Relationship Specialty Start Date End Date Johanne Allen APRN-CARMEN [address] [place] [phone] PCP - General Internal Medicine 02/23/20 documented as of this encounter
--- OUTSIDE RECORDS SUMMARY | 2025-06-09 15:47 | XMS_ITS | Clinical Summary ---
Author Organization [employer] tem Address [id number] [address] [place] [address] Care Team Providers Care Veterinary Medicine Teacher Name Role Phone Johanne Allen SECURITIES RESEARCH ANALYST-SALES DEVELOPMENT REPRESENTATIVE Primary Care Provider [phone] Allergies Active Allergy Reactions Criticality Noted Date Comments Morphine Sulfate 08/03/2016 Methylphenidate 08/03/2016 Medications BETA CAROTENE ORAL Take by mouth. Activ e acyclovir (ZOVIRAX) 400 mg tablet Take 400 mg by mouth 2 (two) times a day. 5 9 Active alpha lipoic acid 600 mg capsule Take 1 capsule by mouth 2 (two) times a day. 6 9 Active prednisoLONE acetate (PRED FORTE) 1 % ophthalmic suspension INSTILL 1 DROP INTO LEFT EYE ONCE DAILY 5 9 Active tiZANidine (ZANAFLEX) 4 mg tablet Take 4 mg by mouth nightly. 3 9 Active baclofen (LIORESAL) 20 mg tablet Take 20 mg by mouth 3 (three) times a day. 9 Active food supplemt, lactose-reduced (BOOST HIGH PROTEIN) 0.06 gram- 1 kcal/mL liquidIndicatio ns:Underweight Take 1 Unit by mouth daily. One boost drink daily. Chocolate 237 mL 11 1 Active diaper,brief,ad ult,disposable miscIndications :Gross motor impairment,Urin jayshree incontinence, unspecified type 1 Unit by miscellaneous route every 2 (two) hours. 360 each 3 1 Active gabapentin (NEURONTIN) 400 mg capsule TAKE 1 CAPSULE BY MOUTH THREE TIMES DAILY FOR 90 DAYS 1 Active prednisoLONE acetate (PRED FORTE) 1 % ophthalmic suspension 1 drop 4 (four) times a day. 1 Active calcium carbonate-vitam in D3 (CALCIUM 500 + D) 500 mg(1,250mg) -200 units per tabletIndicatio ns:Relies on use of Depo-Provera by partner as primary control method Take 1 tablet by mouth 2 (two) times a day with meals. 60 tablet 12 1 Active loratadine (ALLERGY RELIEF, LORATADINE,) 10 mg tabletIndicatio ns:Seasonal allergies Take 1 tablet (10 mg total) by mouth daily. 90 tablet 1 2 Active fluticasone propionate (FLONASE) 50 mcg/actuation nasal sprayIndication s:Seasonal allergies Administer 2 sprays into each nostril daily. 15.8 mL 5 2 Active underpads 23 X 36 padIndications: Incontinence in female 1 Unit by miscellaneous route as needed (incontinence). 100 each 3 2 Active sertraline (ZOLOFT) 50 mg tablet Take 1 tablet by mouth once daily 90 tablet 2 Active Active Problems Problem Noted Date Diagnosed Date Pre-op evaluation 10/18/2020 Mixed hyperlipidemia 09/14/2020 Statin declined 09/14/2020 Seasonal allergies 09/14/2020 Seizure disorder 09/14/2020 Gross motor impairment 09/14/2020 Underweight 09/14/2020 Acrobrachycephaly 09/14/2020 Tobacco dependence 09/14/2020 Nuclear sclerosis of left eye 04/17/2020 Depression 04/17/2020 Anxiety 04/17/2020 Osteopenia 09/16/2017 Resolved Problems Problem Noted Date Diagnosed Date Resolved Date Cataract of left eye 09/14/2020 021 Osteopenia 04/17/2020 09/14/2020 Immunizations Immunization Administration Dates Next Due Tdap 04/15/2013 Family History Medical History Relation Name Comments Diabetes Maternal Grandmother No Known Problems Mother Cancer Paternal Grandfather lung Relation Name Status Comments Father unknown Alive Maternal Grandfather unknown Maternal Grandmother Mother Alive Paternal Grandfather Paternal Grandmother unknown Social History Tobacco Use Types Packs/Day Years Used Date Smoking Tobacco: Every Day Cigarettes 1 18 Smokeless Tobacco: Never Tobacco Cessation:Counseling Given: Yes Alcohol Use Standard Drinks/Week Comments Yes 0 [...] on file Sexual Orientation Not on file Last Filed Vital Signs Vital Sign Reading Time Taken Comments Blood Pressure 108/64 05/20/2021 3:03 PM EDT Pulse 88 04/11/2021 1:51 PM EDT Temperature 36.6 C (97.9 F) 07/16/2020 3:36 PM EST Respiratory Rate 16 04/11/2021 1:51 PM EDT Oxygen Saturation 98% 04/11/2021 1:51 PM EDT Inhaled Oxygen Concentration - - Weight 40.2 kg (88 lb 9.6 oz) 05/20/2021 3:03 PM EDT Height 149.9 cm (4' 11.02 ) 05/20/2021 3:03 PM E DT Body Mass Index 17.89 05/20/2021 3:03 PM EDT Plan of Treatment Health Maintenance Due Date Last Done Comments Depression Screening 1991 Tobacco Screening 1991 Adult BMI Screening 1997 Pap Smear 06/21/2020 06/21/2017, 06/21/2017 DTaP,Tdap and Td Vaccines (2 - Td or Tdap) 04/15/2023 04/15/2013 Influenza Vaccine 04/30/2025 Medical Devices Not on file Procedures Procedure Name Priority Date/Time Associated Diagnosis Comments PAP SMEAR Routine 06/21/2017 8:15 PM EDT from Last 3 Months or Most Recently Relevant to Health Maintenance Results * (ABNORMAL) Pap Smear (06/21/2017 8:15 PM EDT) Cervical TP 06/21/2017 8:15 PM EDT 06/22/2017 8:16 PM EDT Narrative COPATH - 07/12/2017 2:16 PM EST [facility] [address] [facility] [place], [place] [address] Gynecologic Cytology Consultation Patient Name: MICHELLE STANLEY : 1980 (Age: 37) Gender: F Taken: 06/21/2017 Reported: 07/12/2017 Physician(s): Pauline Wills CNM ([phone]) Copy To: [facility]. Rec. #: [id number] Acct: # [id number] Final Cytologic Interpretation Cervical (with or without endocervical) ThinPrep: Satisfactory for evaluation. A transformation zone component is present. NEGATIVE FOR INTRAEPITHELIAL LESION OR MALIGNANCY. Reactive cellular changes are noted. Shift in vaginal jignesh suggestive of bacterial vaginosis. Comment: This specimen has been sent for HPV testing. The results are in a separate report. gp/07/12/2017 Electronically Signed Out By Leroy Gardiner MD Date of Last Menstrual Period: UNKNOWN Other Clinical Conditions: Screening/Routine z01.419 Radiagraph Operator exam wo/abn findings Previous cytology: 2010 LSIL On Depo Source of Specimen Cervical (with or without endocervical) ThinPrep Thin Prep Pap (CONSERVATION SCIENCE OFFICER) Fee Code(s): G0145, 40201 ThinPrep liquid-based slides, which meet the Hot Molder criteria for automated screening, have been screened by the ThinPrep Imaging System (as of 05/16/07) along with an additional manual rescreening by a information systems manager and, if indicated, by a pathologist.Pauline Wills CNM 06/22/2017 Pauline Wills SECURITIES RESEARCH ANALYST-EVELIO PATHOLOGY/CYTOLOGY ORDER RICHARD Final Result COPATH from Last 3 Months or Most Recently Relevant to Health Maintenance Insurance [place]ICAID [place] Care Teams Veterinary Medicine Teacher Relationship Specialty Start Date End Date Johanne Allen APRN-CNP [address] [place] [address] PCP - General Internal Medicine 02/23/20
--- OUTSIDE RECORDS SUMMARY | 2025-06-09 15:47 | XMS_ITS | Encounter Summary ---
Author Organization [facility] tem Address [id number] [address] [place] [address] Care Team Providers Care Treating And Pumping Supervisor Name Role Phone Johanne Allen CYBER TRANSPORT SYSTEMS SPECIALIST-PRINCIPAL SOLUTIONS ARCHITECT Primary Care Provider [phone]- [phone] Reason for Visit * Reason Onset Date Comments Phone Encounter 07/10/2020 Encounter Details Date Type Department Care Team (Late st Contact Info) Description 07/10/2020 Telephone [facility] [address] [facility] [address] [place] [phone] Pauline Wills APRNBRIDGETTE [address] [place] [address] Phone Encounter Social History Tobacco Use Types Packs/Day Years Used Date Smoking Tobacco: Every Day Cigarettes 1 18 Smokeless Tobacco: Never Alcohol Use Standard Drinks/Week Comments Yes 0 (1 standard drink = 0.6 oz pur e alcohol) Rare Childcare Answer Date Recorded Childcare Unknown 02/06/2019 Employment Answer Date Recorded Employment Unknown 02/06/2019 Comments No Sex and Gender Information Value Date Recorded Sex Assigned at Not on file Legal Sex Female 1:50 PM EDT Gender Identity Not on file Sexual Orientation Not on file documented as of this encounter Miscellaneous Notes * Telephone Encounter - Haritha Khan - 07/10/2020 11:45 AM EST Needs Depends pad script sent [facility] [email or web address] [place] documented in this encounter Plan of Treatment Not on file documented as of this encounter Visit Diagnoses Not on filedocumented in this encounter Care Teams Treating And Pumping Supervisor Relationship Specialty Start Date End Date Johanne Allen APRN-CARMEN [address] [place] [address] PCP - General Internal Medicine 02/23/20 documented as of this encounter
--- OUTSIDE RECORDS SUMMARY | 2025-06-09 15:47 | XMS_ITS | Encounter Summary ---
Author Organization [facility] Address [address] [place] [address] Phone Care Team Providers Care Photolithographer Name Role Phone Unavailable Primary Care Provider Unavailabl e Encounter Details Date Type Department Care Team (Late st Contact Info) Description 06/05/2025 Lab Requisition [facility] [address] [place] [phone] Aaron García MD [address] [place], [place] [id number] Perforated corneal ulcer, left eye Social History Tobacco Use Types Packs/Day Years Used Date Smoking Tobacco: Never Assessed Comments Unknown Sex and Gender Information Value Date Recorded Sex Assigned at Not on file Legal Sex Female 7:41 AM EDT Gender Identity Not on file Sexual Orientation Not on file documented as of this encounter Plan of Treatment Pending Results Name Type Priority Associated Diagnoses Date /Time Surgical Pathology Exam Pathology and Cytology Routine Perforated corneal ulcer, left eye 06/04/2025 9:20 AM EDT documented as of this encounter Visit Diagnoses Diagnosis Perforated corneal ulcer, left eye documented in this encounter
--- OUTSIDE RECORDS SUMMARY | 2025-06-09 15:47 | XMS_ITS | Encounter Summary ---
Author Organization [facility] tem Address [id number] [address] [place] [address] Care Team Providers Care Senior Software Project Manager Name Role Phone Johanne Allen APRN-CARMEN Primary Care Provider [phone] Reason for Visit * Reason Comments Med Refill Encounter Details Date Type Department Care Team (Late st Contact Info) Description 06/09/2022 Refill [facility] Internal [facility]/Placido Alvarez MD [address] [place] [phone] Johanne Allen APRN-CNP [address] [place] [address] Social History Tobacco Use Types Packs/Day Years [...] on filedocumented in this encounter Care Teams Senior Software Project Manager Relationship Specialty Start Date End Date Johanne Allen APRN-CNP [address] [place] [address] PCP - General Internal Medicine 02/23/20 documented as of this encounter
--- OUTSIDE RECORDS SUMMARY | 2025-06-09 15:47 | XMS_ITS | Clinical Summary ---
Author Organization [facility] Address [address] [place] [id number] Care Team Providers Care Insurance Processor Name Role Phone Johanne Allen HOUSE RN Primary Care Provider [phone]- [phone] Susan Harden HOUSE RN Unavailable [phone] Allergies Active Allergy Reactions Criticality Noted Date Comments Diazepam Other: See Comments 09/24/2021 Metoclopramide Other: See Comments 09/24/2021 Morphine Other: See Comments 04/15/2013 insomnia Methylphenidate Analogues Other: See Comments 0 04/15/2013 hyperactive Medications BETA CAROTENE ORAL Take by mouth. Activ e sertraline (ZOLOFT) 50 mg tablet Take 50 mg by mouth daily at bedtime. 01/16/20 20 Active Alpha Lipoic Acid 600 mg cap Take 1 capsule by mouth twice daily. 01/23/20 20 Active medroxyPROGEST ERone (DEPO-PROVERA) 400 mg/mL susp Inject 400 mg intramuscularly every 12 weeks. Active calcium-carbon ate-vitamin D3 500 mg(1,250mg) -200 unit per tablet Take 1 tablet by mouth twice daily. 04/30/20 20 Active loratadine (CLARITIN) 10 mg tablet Take 10 mg by mouth once daily. 09/13/19 21 Active fluticasone (FLONASE) 50 mcg/actuation nasal spray Use 2 Sprays in each nostril once daily. 10/12/19 21 Active Diaper,Brief, Adult,Disposab le (DEPEND EASY FIT UNDERGARMENTS) 1 Package by MISCELLANEOUS route as needed. 07/11/20 20 Active prednisoLONE acetate (PRED FORTE) 1 % ophthalmic suspension Use 1 Drop in the left eye four times daily. Start after surgery. 1 Bottle 2 04/24/20 21 Active baclofen (LIORESAL) 20 mg tablet Take 1 tablet by mouth three times daily. 90 tablet 2 09/22/19 23 Active tiZANidine (ZANAFLEX) 4 mg tablet Take 1 tablet by mouth daily at bedtime. 30 tablet 2 09/22/19 23 Active gabapentin (NEURONTIN) 400 mg capsule Take 1 capsule by mouth three times daily for 180 days. 90 capsule 5 02/25/20 23 Active Ascorbic Acid (VITAMIN C) 1,000 mg tablet Take 1 tablet by mouth once daily for 14 days. 14 tablet 11/01/19 25 Active food supplemt, lactose-reduce d (BOOST HIGH PROTEIN) 0.06 gram- 1 kcal/mL liqd Take by mouth. 02/20/20 21 Active oxybutynin XL (DITROPAN XL) 5 mg 24 hr tablet Take 10 mg by mouth once daily. Active acyclovir (ZOVIRAX) 400 mg tablet Take 1 tablet by mouth four times daily. 120 tablet 2 11/05/19 25 Active erythromycin (ROMYCIN) 5 mg/gram (0.5 %) ophthalmic ointment Use 1 application in the left eye daily at bedtime. 3.5 g 3 11/07/19 25 Active Active Problems Problem Noted Date Diagnosed Date Acrobrachycephaly 09/14/2020 Gross motor impairment 09/14/2020 Mixed hyperlipidemia 09/14/2020 Seasonal allergies 09/14/2020 Statin declined 09/14/2020 Underweight 09/14/2020 Pre-operative examination 04/17/2020 Nuclear sclerosis of left eye 04/17/2020 Seizures 04/17/2020 Osteopenia 04/17/2020 Depression 04/17/2020 Current smoker 04/17/2020 Antalgic gait 04/17/2020 Anxiety 04/17/2020 Resolved Problems Problem Noted Date Diagnosed Date Resolved Date Tobacco dependence 09/14/2020 Immunizations Immunization Administration Dates Next Due tetanus diphtheria pertussis (Tdap) vaccine, age 7+ yr (ADACEL, BOOSTRIX) 04/15/2013 Family History Medical History Relation Comments No Ocular Disease No Family History Social History Tobacco Use Types Packs/Day Years Used Date Smoking Tobacco: Every Day Cigarettes Smokeless Tobacco: Never Tobacco Cessation:Ready to Q uit: Not Asked; Counseling Given: Not Answered Alcohol Use Standard Drinks/Week Comments No 0 (1 standard drink = 0.6 oz pur e alcohol) PHQ-2 Answer Date Recorded PHQ-2 score 1 09/16/2022 Area Deprivation Index Answer Date Rudy rded National Score (1-100), lower number is lower ri sk 79 11/01/2024 State Score (1-10), lower number is lower risk 7 11/01/2024 Data from: https://www.neighborhoodatlas.medicine.[facility]/. Last address used for calculation [address] 11/01/2024 Comments No Sex and Gender Information Value Date Recorded Sex Assigned at Female 03/20/2021 1:49 PM EDT Legal Sex Female 8:48 AM EST Gender Identity Female 03/20/2021 1:49 PM EDT Sexual Orientation Not on file Last Filed Vital Signs Vital Sign Reading Time Taken Comments Blood Pressure 135/82 10/31/2024 4:26 PM EST Pulse 97 10/31/2024 4:26 PM EST Temperature 36.8 C (98.2 F) 10/31/2024 4:26 PM EST Respiratory Rate 18 10/31/2024 4:26 PM EST Oxygen Saturation 98% 10/31/2024 4:26 PM EST Inhaled Oxygen Concentration - - Weight 39.6 kg (87 lb 6.4 oz) 12/11/2020 2:33 PM EDT Height 152.4 cm (5') 12/11/2020 2:33 PM EDT Body Mass Index 17.07 12/11/2020 2:33 PM EDT Plan of Treatment Upcoming Encounters Date Type Department Care Team (Late st Contact Info) Description 06/25/2025 3:00 PM EDT Office Visit [facility] [address] [place], [place] [id number] Saranya Dee MD [address] [place] [address] CP (Cerebral Palsy) Health Maintenance Due Date Last Done Comments HIV Screening 1997 Hepatitis C Screening 1997 Hepatitis B Vaccine (1 of 3 - 19+ 3-dose series) 1998 Pneumococcal Vaccine (1 of 2 - PCV) 1998 Cervical Cancer Screening 2000 DTaP,Tdap,Td Vaccine (2 - Td or Tdap) 04/15/2023 04/15/2013 CT Colonography 2024 Cologuard (FIT-DNA) 2024 Colonoscopy 2024 Colorectal Cancer Screening 2024 Fecal Occult Blood 2024 Sigmoidoscopy 2024 Medicare Annual Wellness Visit 06/30/2024 Covid-19 Vaccine (1 - 2024-2 6 season) 2025 Influenza Vaccine (#1) 2025 Lipid Screening 09/13/2025 09/13/2020, 02/23/2020 Mammogram Screening 12/20/2025 12/20/2024, 05/05/2024, 05/05/2024, Additional history exists Diabetes Screening 11/01/2027 10/31/2024, 0 09/13/2020, 02/23/2020, Additional history exists Medical Devices Implanted Type Area Oracle E Business Developer Device Identifier Shelf Expiration Date Model / Serial / Lot Lens Acrysof Ultrasert +23 Diopter Acrylic Iol 1 Piece Foldable Uv Blue - [id number] Implanted:Qty : 1 on 04/23/2021 by Axel Woodard MD at [facility] Intraocular Lens Left: Eye [facility] 03/05/2024 [id number] / [id number] / Procedures Procedure Name Priority Date/Time Associated Diagnosis Comments BASIC METABOLIC PANEL Routine 10/31/2024 7:38 PM EST from Last 3 Months or Most Recently Relevant to Health Maintenance Results * (ABNORMAL) BASIC METABOLIC PANEL (10/31/2024 7:38 PM EST) Glucose 81 74 - 99 mg/dL 10/31/2024 8:11 PM EST [facility] Comment: The [place] Diabetes Association (ADA) provides guidance for cutoff [...] Standards of Medical Care in Diabetes 2016, [place] Diabetes Association. Diabetes Care. 2016.39(Suppl 1). BUN 4(L) 7 - 21 mg/dL 10/31/2024 8:11 PM [facility] Creatinine 0.83 0.58 - 0.96 mg/dL 10/31/2024 8:11 PM [facility] Sodium 142 136 - 144 mmol/L 10/31/2024 8:11 PM [facility] Potassium 4.0 3.7 - 5.1 mmol/L 10/31/2024 8:11 PM [facility] Chloride 106 98 - 107 mmol/L 10/31/2024 8:11 PM [facility] CO2 26 22 - 30 mmol/L 10/31/2024 8:11 PM [facility] Anion Gap 10 8 - 15 mmol/L 10/31/2024 8:11 PM [facility] Calcium, Total 8.8 8.5 - 10.2 mg/dL 10/31/2024 8:11 PM [facility] Estimated Glomerular Filtration Rate 89 >=60 mL/min/1.7 3m 10/31/2024 8:11 PM [facility] Comment:Estimated Glomerular Filtration Rate (eGFR) is calculated using the 2020 CKD-EPI creatinine equation. This equation utilizes serum creatinine, sex, and age as parameters. The creatinine assay has traceable calibration to isotope dilution- mass spectrometry. Refer to KDIGO guidelines for clinical interpretation. In patients with unstable renal function, e.g. those with acute kidney injury, the eGFR may not accurately reflect actual GFR. Blood BLOOD SPECIMEN / Unknown Venipuncture / Unknown 10/31/2024 7:38 PM EST 10/31/2024 7:43 PM EST Kelli Garrido MD LABORATORY Final Resul t [facility] [address] [place] [address], [place] from Last 3 Months or Most Recently Relevant to Health Maintenance Insurance [place]ICAID [place] MEDICARE [address] [id number] [place] Care Teams Insurance Processor Relationship Specialty Start Date End Date Johanne Allen CNP PCP - General Internal Medicine 08/20/20 Susan Harden CNP [address] [place] [address] Family Medicine 04/13/25
--- OUTSIDE RECORDS SUMMARY | 2025-06-09 15:47 | XMS_ITS | Encounter Summary ---
[facility] Address [id number] [address] [place] [address] Care Team Providers Care Flagger Name Role Phone Johanne Allen POWER HAMMER OPERATOR-CRYSTAL LAPPER Primary Care Provider [phone]- [phone] Reason for Visit * Reason Onset Date Comments Med Refill 09/11/2020 Encounter Details Date Type Department Care Team (Late st Contact Info) Description 09/11/2020 Refill [facility]/Placido Alvarez MD [address] [place] [phone] Veronica Chirstine RMA Seasonal allergies Social History Tobacco Use Types Packs/Day Years [...] * Telephone Encounter - JOHN Siddiqui - 09/11/2020 10:43 AM EST Pt states she called [facility] for the refill and they state they sent refill request but never did, I informed pt you have 72 hours to send refill. Pt states she is completely out of zoloft. JOHN Siddiqui 09/11/20 1045 documented in this encounter Plan of Treatment Not on file documented as of this encounter Visit Diagnoses Diagnosis Seasonal allergies Allergic rhinitis, cause unspecified documented in this encounter Care Teams Flagger Relationship Specialty Start Date End Date Johanne Allen APRN-CARMEN [address] [place] [address] PCP - General Internal Medicine 02/23/20 documented as of this encounter
--- OUTSIDE RECORDS SUMMARY | 2025-06-09 15:47 | XMS_ITS | CCD ---
Author Organization [facility] Care Team Providers Care Still Photographer Name Role Phone STEPHANIE ALCARAZ Referring Unavailable PROVIDER, UNKNOWN Attending Unavailable PROVIDER, UNKNOWN Admitting Unavailable PROVIDER, UNKNOWN Attending Unavailable PROVIDER, UNKNOWN Admitting Unavailable Olexa, Carol Unavailable FALYLA, TORRES H Admitting Unavailable FAWWAD, TORRES H Attending Unavailable FAWWAD, TORRES H Primary Care Unavailable FAWWAD, TORRES H Admitting Unavailable FAWWAD, TORRES H Attending Unavailable FAWWAD, TORRES H Primary Care Unavailable MIKE, DR YUDY Murray Consulting Unavailable FAWWAD, TORRES H Consulting Unavailable FAWWAD, TORRES H Admitting Unavailable FAWWAD, TORRES H Attending Unavailable JOSH, DR EVAN Yousif Consulting Unavailable FAWWAD, TORRES H Consulting Unavailable OLEXA, CAROL Admitting Unavailable OLEXA, CAROL Attending Unavailable FAWWAD, TORRES H Primary Care Unavailable Johanne Enriquez CNP Primary Care Provider [phone] Shaikh Sauceda MD Primary Care Provider [phone] Michael Mulligan MD Primary Care Provider Damir Berger NP Unavailable Shaikh Sauceda MD Unavailable Ab APARICIO, Damir Unavailable Johanne Enriquez CNP Primary Care Provider JOHANNE ENRIQUEZ Primary Care Unavailable JOHANNE ENRIQUEZ Primary Care Unavailable JOHANNE ENRIQUEZ Primary Care Unavailable JOHANNE ENRIQUEZ Primary Care Unavailable Eric Leslie MA Unavailable Unavailable Leslie MA, Saebel Unavailable Kassidy Temple DO Attending Provider NON STAFF Primary Care Provider Unavailabl e Ly Kassidy NEVILLE Other Provider [phone] [place] Attending Provider Unavailab Susan Sykes Primary Care Provider [phone] Susan Harden Attending Provider DAMIR BERGER Attending Unavailabl e OSVALDO CLARKE Attending Unavailable AICHHOLZ, SUSAN Attending Unavailable AB, DAMIR Referring Unavailabl e AICHHOLZ, SUSAN Attending Unavailable OSVALDO CLARKE Attending Unavailable OSVALDO CLARKE Referring Unavailable AICHHOLZ, SUSAN Attending Unavailable AICHHOLZ, SUSAN Attending Unavailable AB, DAMIR Referring Unavailabl e AB, DAMIR Attending Unavailabl e NON STAFF Primary Care Provider Unavailabl e Shannenhtamara Susan Alexander Primary Care Provider [phone] Susan Harden Attending Provider [phone] NON STAFF Primary Care Unavailable Kassidy Temple Attending Unavailable Carmela Templee L Admitting Unavailable Aichholz, Susan J Admitting Unavailable Aichholz, Susan J Attending Unavailable Aichholz, Susan J Primary Care Unavailable Aichholz, Susan J Primary Care Unavailable Aichholz, Susan J Admitting Unavailable Aichholz, Susan J Attending Unavailable Michael Mulligan MD Primary Care Provider Damir Berger NP Unavailable Allergies Allergy Classification Reported Allergen(s) Allergy Type Date of Onset Reaction(s) Facility (20 sources) diazePAM; Translations: [DIAZEPAM] Drug Allergy 2 Other: See Comments, Unknown [facility] (20 sources) Methylphenidate; Translations: [METHYLPHENIDATE ] Drug Allergy 3 Unknown, opposite of what it's supposed to do [facility] (20 sources) Metoclopramide; Translations: [METOCLOPRAMIDE] Drug Allergy 2 Other: See Comments, Unknown [facility]ository (20 sources) Morphine; Translations: [MORPHINE] Drug Allergy 3 Other: See Comments [facility] (10 sources) Methylphenidate; Translations: [METHYLPHENIDATE ANALOGUES] Drug Allergy 3 Other: See Comments [facility] Medications Current Medications Medication Drug Class(es) Dates [...] Active ascorbic acid 1000 mg oral tablet (10 sources) Vitamin C Start: 5 End: 5 take 1 tablet by mouth once daily Ascorbic Acid (VITAMIN C) 1,000 mg tablet Take 1 tablet by mouth once daily for 14 days. 14 tablet 10/31/2024 Active baclofen 20 mg oral tablet (20 sources) gamma-Aminobutyric Acid-ergic Agonist Start: End: take 1 tablet by mouth in the morning, then take 1 tablet by mouth in the evening, then take 1 tablet by mouth at bedtime baclofen (Lioresal) 20 MG tablet Indications: Spastic diplegic cerebral palsy (HCC) Take 1 tablet (20 mg) by mouth in the morning and 1 tablet (20 mg) in the evening and 1 tablet (20 mg) before bedtime. 270 tablet 3 03/21/2025 03/21/2026 Active Start: 01-26-2025 End: 03-21-2025 take 2 tablets by mouth in the morning, then take 2 tablets by mouth in the evening, then take 2 tablets by mouth at bedtime baclofen (Lioresal) 10 MG tablet Indications: Spastic diplegic cerebral palsy (HCC) Take 2 tablets (20 mg) by mouth in the morning and 2 tablets (20 mg) in the evening and 2 tablets (20 mg) before bedtime. 90 tablet 01/26/2025 03/21/2025 Discontinued Start: 01-22-2025 End: 01-26-2025 take 1 tablet by mouth once daily in the morning, then take 1 tablet by mouth once daily in the evening, then take 1 tablet by mouth once daily at bedtime baclofen (Lioresal) 10 MG tablet Indications: Spastic diplegic cerebral palsy (CMS/HCC) TAKE 1 TABLET BY MOUTH ONCE DAILY IN THE MORNING THEN 1 ONCE DAILY IN THE EVENING THEN 1 ONCE DAILY BEFORE BEDTIME 90 tablet 01/22/2025 01/26/2025 Discontinued (Reorder) Start: 01-08-2025 take 1 tablet by poppy th twice daily Start: 10-27-2024 End: 11-26-2024 take 1 tablet by mouth in the [...] mg) before bedtime. 90 tablet 2 10/27/2024 Active Start: 09-22-2022 take 1 tablet by poppy th three times daily baclofen (LIORESAL) 20 mg [...] by mouth three times daily. Beta Carotene (9 sources) BETA CAROTENE OR AL Take by mouth. Active BETA CAROTENE OR AL Take by mouth. 0 Active Comment on above: Take by mouth. calcium carbonate 1250 mg / cholecalciferol 200 unt oral tablet (9 sources) Vitamin D Start: 04-30-20 take 1 tablet by mouth twice daily dfivgvr-fdeqrglpa-tc tamin D3 500 mg(1,250mg) -200 unit per tablet Take 1 tablet by mouth twice daily. 04/30/2020 Active Comment on above: Take 1 tablet by poppy th twice daily. carbamide peroxide 65 mg/ml otic solution (2 sources) Start: 04-22-20 End: 04-26-20 carbamide peroxide (Debrox) 6.5 % otic solution Indications: Impacted cerumen of right ear Administer 3-5 drops into affected ear(s) in the morning and 3-5 drops before bedtime. Do all this for 4 days. 15 mL 04/22/2024 04/26/2024 Active celecoxib 200 mg oral capsule (13 sources) Nonsteroidal Anti-inflammatory Drug Start: 10-02-19 End: 12-02-19 celecoxib (CELEBREX) 200 mg capsule Take 200 mg by mouth. 10/02/2024 12/01/2024 Active cenegermin-bkbj 0.02 mg/ml ophthalmic solution (20 sources) Start: 02-10-20 End: 04-10-20 Oxervate 0.002 % ophthalmic solution 02/09/2025 04/10/2025 Discontinued (Therapy completed) Start: 05-11-2023 End: 11-09-2024 Oxervate 0.002 % ophthalmic solution 05/11/2023 11/09/2024 Discontinued (Therapy completed) cholecalciferol 0.05 mg oral tablet (12 sources) Vitamin D Start: 03-26-2025 End: 05-20-2025 take 1 tablet by mouth once daily cholecalciferol (Vitamin D-3) 50 MCG (1999 UT) tablet Indications: Vitamin D deficiency, unspecified Take 1 tablet (50 mcg) by mouth Daily 30 tablet 2 04/20/2025 05/20/2025 Active Start: 02-16-2025 End: 03-18-2025 take 1 tablet by mouth once daily cholecalciferol (Vitamin D-3) 50 MCG (2000 UT) tablet Indications: Vitamin D deficiency Take 1 tablet (50 mcg) by mouth Daily 30 tablet 1 02/16/2025 03/18/2025 Active Start: 01-08-2025 take 1 tablet by poppy once daily dexamethasone 2 mg oral tablet (5 sources) Corticosteroid Start: 02-21-2025 End: 04-10-2025 dexAMETHasone (Decadron) 2 MG tablet Indications: Radiculopathy of sacral region , Lumbar radiculopathy 2mg 3 pills po X3 days,2 pills po daily X3 days , then 1 pill po daily X3 days then stop 9 days 18 pills 18 tablet 1 02/21/2025 04/10/2025 Discontinued Diaper,Brief, Adult,Disposable (DEPEND EASY FIT UNDERGARMENTS) (9 sources) Start: 07-11-2020 Diaper,Brief, Adult,Disposable (DEPEND EASY FIT UNDERGARMENTS) 1 Package by MISCELLANEOUS route as needed. 07/11/2020 Active Start: 07-11-2020 Diaper,Brief, Adult,Disposable (DEPEND EASY FIT UNDERGARMENTS) 1 Package by MISCELLANEOUS route as needed. 0 07/11/2020 Active Comment on above: 1 Package by MISCELL ANEOUS route as needed. erythromycin 0.005 mg/mg ophthalmic ointment (20 sources) Macrolide, Macrolide Antimicrobial Start: 11-02-19 End: 04-10-20 erythromycin (Romycin) 5 MG/GM ophthalmic ointment Apply 1 Application to affected eye(s) at bedtime 11/06/2024 04/10/2025 Discontinued (Therapy completed) ferrous sulfate 324 mg delayed release oral tablet (7 sources) Start: 01-21-20 End: 03-25-20 take 1 tablet by mouth at mealtime ferrous sulfate 324 (65 Fe) MG EC tablet Indications: Iron deficiency Take 1 tablet (324 mg) by mouth in the morning. Take with meals. 30 tablet 2 02/23/2025 03/25/2025 Active Start: 01-08-2025 take 1 tablet by mouth once da charlene fluticasone propionate 0.05 mg/actuat metered dose nasal spray (20 sources) Corticosteroid Start: 09-27-2024 End: 10-02-2024 take 2 spray(s) nasal route once daily [...] HIGH PROTEIN) 0.06 gram- 1 kcal/mL liqd (7 sources) Start: 02-19-2021 food supplemt, lactose-reduced (BOOST HIGH PROTEIN) 0.06 gram- 1 kcal/mL liqd Take by mouth. 02/19/2021 Active gabapentin 400 mg oral capsule (20 sources) Anti-epileptic Agent Start: 10-02-2024 End: 06-01-2025 take 1 capsule by mouth in the morning, then take 1 capsule by mouth in the evening, then take 1 capsule by mouth at bedtime gabapentin (Neurontin) 400 MG capsule Indications: Spastic diplegic cerebral palsy (HCC) Take 1 capsule (400 mg) by mouth in the morning and 1 capsule (400 mg) in the evening and 1 capsule (400 mg) before bedtime. 90 capsule 05/02/2025 06/01/2025 Active Start: 02-24-2023 End: 11-01-2024 take 1 capsule by mouth in the morning, then take 1 capsule by mouth in the evening, then take 1 capsule by mouth at bedtime gabapentin (Neurontin) 400 MG capsule Indications: Spastic diplegic cerebral palsy (HCC) Take 1 capsule (400 mg) by mouth [...] on above: Take 1 capsule by mo uth three times daily for 90 days. Take 300 mg by mouth three times daily. Take 1 capsule by mo uth three times daily for 180 days. hydrOXYzine hydrochloride 25 mg oral tablet (20 sources) Antihistamine Start: 10-02-19 End: 11-02-19 take [...] daily. medroxyPROGESTERone acetate 400 mg/ml injectable suspension (9 sources) Progestin medroxyPROGESTER one (DEPO-PROVERA) 400 mg/mL susp Inject 400 mg intramuscularly every 12 weeks. Active Comment on above: Inject 400 mg intram uscularly every 12 weeks. moxifloxacin 5 mg/ml ophthalmic solution (18 sources) Quinolone Antimicrobial Start: 12-12-2024 End: 04-10-2025 take 1 drop(s) into the eye(s) four times daily moxifloxacin (Vigamox) 0.5 % ophthalmic solution INSTILL 1 DROP INTO LEFT EYE 4 TIMES DAILY FOR 7 DAYS 12/12/2024 04/10/2025 Discontinued (Therapy completed) Start: 11-06-2024 End: 11-13-2024 moxifloxacin (Vigamox) 0.5 [...] 11/06/2024 11/13/2024 Active 24 hr oxybutynin chloride 10 mg extended release oral tablet (20 sources) Cholinergic Muscarinic Antagonist Start: 03-26-2025 take 1 tablet by mouth once daily oxybutynin XL (Ditropan-XL) 10 MG 24 hr tablet Take 20 mg by mouth Daily 03/26/2025 Active Start: 01-10-2025 End: 02-09-2025 take 1 tablet by mouth once daily oxybutynin XL (Ditropan-XL) 10 MG 24 hr tablet Indications: Mixed incontinence Take 1 tablet (10 mg) by mouth Daily 30 tablet 5 01/10/2025 02/09/2025 Active Start: 01-08-2025 take 1 tablet by poppy once daily Start: 01-17-2024 End: 03-31-2025 take 2 tablets by mouth once daily oxybutynin XL (Ditropan-XL) 5 MG 24 hr tablet Indications: Mixed incontinence Take 2 tablets (10 mg) by mouth Daily 180 tablet 1 10/02/2024 01/10/2025 Discontinued (Reorder) Start: 05-17-2023 take 1 tablet by poppy th every twenty-four hours in the morning oxybutynin XL (Ditropan-XL) 5 MG 24 hr tablet Take 5 mg by mouth in the morning. 0 05/17/2023 Active take 1 tablet by poppy th once daily oxybutynin XL (DITROPAN XL) 5 mg 24 hr tablet Take 10 mg by mouth once daily. Active predniSONE 20 mg oral tablet (2 sources) Start: 01-26-2025 End: 02-05-2025 predniSONE (Deltasone) 20 MG tablet Indications: Cervical radiculopathy 3 pills po daily X3 days, then 2 pills po daily X3 days , then 1 pill po daily X3 days then stop 9 days ,18 pills 18 tablet 01/26/2025 02/05/2025 Active QUEtiapine 25 mg oral tablet (4 sources) Atypical Antipsychotic Start: 04-10-2025 End: 05-10-2025 take 1 tablet by mouth at bedtime QUEtiapine (SEROquel) 25 MG tablet Indications: Mild episode of recurrent major depressive disorder , Anxiety Take 1 tablet (25 mg) by mouth at bedtime 30 tablet 04/10/2025 05/10/2025 Active sertraline 100 mg oral tablet (20 sources) Serotonin Reuptake Inhibitor Start: 04-10-2024 End: 07-09-2025 take 1 tablet by mouth once daily sertraline (Zoloft) 100 MG tablet Indications: Depression, unspecified depression type Take 1 tablet (100 mg) by mouth Daily 30 tablet 2 04/10/2025 07/09/2025 Active Start: 01-16-2020 End: 04-03-2024 take 1 tablet by mouth once daily at bedtime sertraline (ZOLOFT) 50 mg tablet Take 50 mg by mouth daily at bedtime. 01/16/2020 Active Comment on above: Take 50 mg by mouth daily at bedtime. thioctic acid 600 mg oral capsule (9 sources) Start: take 1 capsule by mouth twice daily Alpha Lipoic Acid 600 mg cap Take 1 capsule by mouth twice daily. 01/23/2020 Active Comment on above: Take 1 capsule by mo [facility] twice daily. tiZANidine 4 mg oral tablet (12 sources) Central alpha-2 Adrenergic Agonist Start: 0 End: 3 take 1 tablet by mouth once daily at bedtime tiZANidine (ZANAFLEX) 4 mg tablet Take 1 tablet by mouth daily at bedtime. 30 tablet 2 09/22/2022 Active Comment on above: Take 1 tablet by poppy th daily at bedtime. Take 4 mg by mouth d aily at bedtime. valACYclovir 1000 mg oral tablet (8 sources) Herpesvirus Nucleoside Analog DNA Polymerase Inhibitor, Herpes Simplex Virus Nucleoside Analog DNA Polymerase Inhibitor, Herpes Zoster Virus Nucleoside Analog DNA Polymerase Inhibitor Start: 5 Start: 10-31-2024 End: 11-14-2024 valACYclovir (Valtrex) 1 g t ablet Take 1,000 mg by mouth in the morning and 1,000 mg at noon and 1,000 mg in the evening. 10/31/2024 11/09/2024 Discontinued (Therapy completed) Start: 10-31-2024 End: 11-14-2024 take 1 tablet by mouth three times daily valACYclovir (VALTREX) 1 gram tablet Take 1 tablet by mouth three times a day for 14 days. 42 tablet 10/31/2024 11/04/2024 Discontinued Completed/Discontinued Medications Medication Drug Class(es) Dates Sig (Normalized) Sig (Original) methocarbamol 500 mg oral tablet (20 sources) [...] Start: 09-20-2023 take 1 tablet by poppy three times daily methocarbamol (Robaxin) 500 MG [...] suspension (2 sources) Corticosteroid Start: 06-25-2022 Kenalog-40 27 May, 2022 40 mg Problems Active Problems Problem Classification Problem Date [...] Mixed hyperlipidemia; Translations: [Mixed hyperlipidemia] Onset: 09-14-2020 Resolved: 12-25-2024 12-11-2020 Chronic Epilepsy; convulsions (20 sources) Absence [...] UNSPECIFIED] Onset: 06-08-2022 Episodic Other eye disorders (3 sources) Corneal melting disorder; 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, left eye] 11-01-2024 Episodic Other eye disorders (1 source) Other specified disorders of cornea, left eye; Translations: [Corneal thinning of left eye] Onset: 10-31-2024 Episodic Other nervous system disorders (1 source) Tremor; Translations: [Tremor, unspecified] Episodic Other nervous system disorders (2 sources) Paresthesia; Translations: [Paresthesia of skin] 01-26-2025 Episodic Other non-traumatic joint disorders (6 sources) Pain in right shoulder; Translations: [PAIN IN RIGHT SHOULDER] Onset: 06-04-2022 Episodic Other non-traumatic joint disorders (1 source) Pain of joint of bilateral lower legs; Translations: [Pain in right knee] Episodic Other nutritional; endocrine; and metabolic disorders (2 sources) Unintentional weight loss; Translations: [Abnormal weight loss] Onset: 04-12-2025 04-12-2025 Episodic Other upper respiratory disease (20 sources) [...] radiculopathy, lumbar region] Onset: 04-13-2023 04-13-2023 Chronic Spondylosis; intervertebral disc disorders; other back problems (20 sources) Spasm of muscle of lower back; Translations: [Muscle spasm of back] Onset: 04-13-2023 04-13-2023 Episodic Sprains and strains (1 source) Superior glenoid labrum lesion of right shoulder, initial encounter; Translations: [SUP GLND LABRUM LES RT SHLDR INIT] Onset: 06-08-2022 Episodic Substance-related disorders (20 sources) Smoker; Translations: [Nicotine dependence, unspecified, uncomplicated] Onset: 04-17-2020 Resolved: 12-25-2024 04-17-2020 Chronic Past or Other Problems Problem Classification Problem Date Documented Date Episodic/Chronic Epilepsy; convulsions (20 sources) Seizure; Translations: [Unspecified convulsions] Onset: 04-17-2020 Resolved: 02-19-2025 Episodic Mood disorders (20 sources) Mood disorders Onset: 11-09-2024 11-09-2024 Nutritional deficiencies (20 sources) Iron deficiency; Translations: [Iron deficiency] Onset: 11-13-2024 11-13-2024 Episodic Other acquired deformities (20 sources) Acquired spondylolisthesis; [...] Translations: [Impacted cerumen, right ear] Onset: 04-10-2024 Resolved: 12-25-2024 04-10-2024 Episodic Other female genital disorders (20 sources) Cervical intraepithelial neoplasia grade 1; Translations: [Mild cervical dysplasia] Onset: 05-31-2023 05-31-2023 Episodic Other nervous system disorders (20 sources) Antalgic gait; Translations: [Other abnormalities of gait and mobility] Onset: 04-17-2020 04-17-2020 Episodic Other nutritional; endocrine; and metabolic disorders (20 sources) Underweight; Translations: [Underweight] Onset: 09-14-2020 12-11-2020 Episodic Other screening for suspected conditions (not mental disorders or infectious disease) (20 sources) Patient encounter status; Translations: [Encounter for screening mammogram for malignant neoplasm of breast] Onset: 04-10-2024 04-10-2024 Episodic Otitis media and related conditions (20 sources) Otitis media of bilateral ears; Translations: [Otitis media, unspecified, bilateral] Onset: 05-18-2024 Resolved: 12-25-2024 05-18-2024 Episodic Residual codes; unclassified (20 sources) Statin declined; Translations: [Procedure and treatment not carried out because of patient's decision for unspecified reasons] Onset: 09-14-2020 12-11-2020 Episodic Results Test Name Value Interpretation Reference Range Facility US breast RT limitedon 04-19 US breast RT limited [facility] [place] [address] Ultrasound Report Signed Patient: Michelle Betancourt MR#: [id number] : 1980 Acct:[id number] Age/Sex: 45 / F ADM Date: 04/19/25 Loc: [facility] Room: Type: [facility] Attending Dr: Susan Harden Ordering Provider: GUERDA Mendoza Date of Service: 04/19/25 US/US breast RT limited: R92.8 Copies to: GUERDA Mendoza US breast RT limited 04/19/2025 11:48 AM SIGNS AND SYMPTOMS: Extremely dense breast tissue in the upper outer right breast on previous mammogram, follow-up COMPARISON: 05/05/2024 and 10/12/2013 FINDINGS: Grayscale sonographic images of the right breast demonstrate dense fibroglandular tissue. There is no evidence of mass, architectural distortion, atypical calcification, or cyst. US/US breast RT limited IMPRESSION: No sonographic evidence of malignancy. ASSESSMENT: BIRADS-1 Negative RECOMMENDATION: If the patient's physical exam remains unchanged, annual routine screening mammography is recommended. Impression dictated by: Aaron Laird M.D. 04/19/2025 12:07 PM Dictation Location: [facility] Tech: Rebecca Forbes Transcribed By: JAYME 04/19/25 3098 Dictated By: Aaron Laird II, MD 04/19/25 1204 Signed By: 04/19/25 1207 Normal [facility] No Panel Informationon 01-26 Radiology Study observation (narrative) [facility] XR CERVICAL SPINE AP/LAT/FLE X/EXTon 01-26-2025 XR CERVICAL SPINE AP/LAT/FLEX/EXT Exam: XR CERVICAL SPINE AP/LAT/FLEX/EXT Reason for exam: Chronic neck pain with bilateral numbness and tingling to hands Prior comparative studies: None Findings: There is straightening of cervical lordosis. No subluxation is apparent. No instability is apparent with gentle flexion and extension. There is very severe disc narrowing with endplate sclerosis and osteophyte formation in at C3-C6. Facets demonstrating appropriate configuration. Atlantoaxial space is normal. No fracture or subluxation is apparent. IMPRESSION: 1. Advanced degenerative change in the mid cervical segments. 2. No malalignment or instability is demonstrated. Dictated on: 01/26/2025 3:05 PM This report has been electronically signed and approved by the interpreting radiologist. Normal Not Available XR Cervical spine 4 or 5 Vie wson 01-26-2025 Exam: XR CERVICAL SPINE AP/LAT/FLEX/EXT Reason for exam: Chronic neck pain with bilateral numbness and tingling to hands Prior comparative studies: None Findings: There is straightening of cervical lordosis. No subluxation is apparent. No instability is apparent with gentle flexion and extension. There is very severe disc narrowing with endplate sclerosis and osteophyte formation in at C3-C6. Facets demonstrating appropriate configuration. Atlantoaxial space is normal. No fracture or subluxation is apparent. IMPRESSION: 1. Advanced degenerative change in the mid cervical segments. 2. No malalignment or instability is demonstrated. Dictated on: 01/26/2025 3:05 PM This report has been electronically signed and approved by the interpreting radiologist. IMAGING Eric Carmen MD - 01/26/2025 Exam: XR CERVICAL SPINE AP/LAT/FLEX/EXT Reason for exam: Chronic neck pain with bilateral numbness and tingling to hands Prior comparative studies: None Findings: There is straightening of cervical lordosis. No subluxation is apparent. No instability is apparent with gentle flexion and extension. There is very severe disc narrowing with endplate sclerosis and osteophyte formation in at C3-C6. Facets demonstrating appropriate configuration. Atlantoaxial space is normal. No fracture or subluxation is apparent. IMPRESSION: 1. Advanced degenerative change in the mid cervical segments. 2. No malalignment or instability is demonstrated. Dictated on: 01/26/2025 3:05 PM This report has been electronically signed and approved by the interpreting radiologist. [facility] XR Cervical spine 4 or 5 Vie wsOrdered By: Eric Carmen on 01-26-2025 [facility] Work Phone: XR LUMBAR SPINE 6+ VIEWS INC LUDING OBLIQUE FLEXION EXTENSIONon 01-26-2025 XR LUMBAR SPINE 6+ VIEWS INCLUDING OBLIQUE FLEXION EXTENSION Exam: XR LUMBAR SPINE 6+ VIEWS INCLUDING OBLIQUE FLEXION EXTENSION Reason for exam: Chronic low back pain, worse on the left Prior comparative studies: None Findings: There is a mild scoliosis convex to the left in the lumbar spine. No spondylolysis is demonstrated. There is endplate sclerosis and osteophyte formation to a mild degree throughout the lumbar spine most notable at L5-S1. Mild facet sclerosis is noted L5-S1. No subluxation is apparent. Gentle flexion and extension views are performed. No instability is provoked. No fracture is demonstrated. Arterial calcifications are present. IMPRESSION: 1. No acute abnormality or instability identified. 2. Mild degenerative changes in the mid and lower lumbar segments. 3. Vascular calcifications. Dictated on: 01/26/2025 11:13 AM This report has been electronically signed and approved by the interpreting radiologist. Normal Not Available XR Lumbar spine Views W flex ion and W extensionon 01-26-2025 Exam: XR LUMBAR SPIN E 6+ VIEWS INCLUDING OBLIQUE FLEXION EXTENSION Reason for exam: Chronic low back pain, worse on the left Prior comparative studies: None Findings: There is a mild scoliosis convex to the left in the lumbar spine. No spondylolysis is demonstrated. There is endplate sclerosis and osteophyte formation to a mild degree throughout the lumbar spine most notable at L5-S1. Mild facet sclerosis is noted L5-S1. No subluxation is apparent. Gentle flexion and extension views are performed. No instability is provoked. No fracture is demonstrated. Arterial calcifications are present. IMPRESSION: 1. No acute abnormality or instability identified. 2. Mild degenerative changes in the mid and lower lumbar segments. 3. Vascular calcifications. Dictated on: 01/26/2025 11:13 AM This report has been electronically signed and approved by the interpreting radiologist. IMAGING Eric Carmen MD - 01/26/2025 Exam: XR LUMBAR SPINE 6+ VIEWS INCLUDING OBLIQUE FLEXION EXTENSION Reason for exam: Chronic low back pain, worse on the left Prior comparative studies: None Findings: There is a mild scoliosis convex to the left in the lumbar spine. No spondylolysis is demonstrated. There is endplate sclerosis and osteophyte formation to a mild degree throughout the lumbar spine most notable at L5-S1. Mild facet sclerosis is noted L5-S1. No subluxation is apparent. Gentle flexion and extension views are performed. No instability is provoked. No fracture is demonstrated. Arterial calcifications are present. IMPRESSION: 1. No acute abnormality or instability identified. 2. Mild degenerative changes in the mid and lower lumbar segments. 3. Vascular calcifications. Dictated on: 01/26/2025 11:13 AM This report has been electronically signed and approved by the interpreting radiologist. [facility] [employer] [facility] [employer] Choriogonadotropin.beta subu nit [Units/volume] in Serum or PlasmaOrdered By: Kassidy Temple on 01-17-2025 HCG.beta subunit Qn Negative [facility] HCG,Qualitative Serumon 12-29 HCG,Qualitative Serum Negative Normal [facility] Comment on above: Result Comment: PERF ORMED BY: [place] [address] PATHOLOGIST BREASTFEEDING PROGRAM COORDINATOR GAL GRANDE M.D. Performed By: #### H CGQUAL #### [address] No Panel InformationOrdered By: Kassidy Temple on 01-17-2025 Miscellaneous Pathology Test See comment [facility] Comment on above: See report. Scanned copy available in EMR. Pathology Request for Lab Co rpon 01-17-2025 Pathology Request for Lab Nico Normal [facility] Comment on above: Order Comment: GI SP ECIMEN Result Comment: See report. Scanned copy available in EMR. PERFORMED BY: [place] [address] PATHOLOGIST BREASTFEEDING PROGRAM COORDINATOR JOSUE ESTRELLA M.D. Performed By: #### P ATH TO LABCO #### [facility] [address] BI MAMMOGRAM DIAGNOSTIC DINORAH SYNTHESIS RIGHTon 12-20-2024 BI MAMMOGRAM DIAGNOSTIC TOMOSYNTHESIS RIGHT This is a summary report. The complete report is available in the patient's medical record. If you cannot access the medical record, please contact the sending organization for a detailed fax or copy. EXAMINATION: BI MAMMOGRAM DIAGNOSTIC TOMOSYNTHESIS RIGHT CLINICAL HISTORY: 6 mo follow up TECHNIQUE: Diagnostic digital mammogram study of the right breast was performed with 2D and 3D tomosynthesis imaging. Study was compared to the screening mammogram study of the breasts dated 05/05/2024. FINDINGS: Standard views of the right breast were obtained as well as compression views and true lateral views. No convincing evidence of dominant spiculated mass, grouped microcalcifications or skin thickening which would be suggestive of malignancy. Breast tissue is extremely dense. Breast tissue appears increased in density compared to the prior exam, particularly in the lateral aspect. Given the nonspecific progression of density, follow-up MRI examination of the breasts with and without intravenous gadolinium contrast is recommended for further evaluation. If MRI of the breasts is not desired, follow-up complete right breast ultrasound study with additional attention to the lateral aspect of the breast would be recommended. A few benign-appearing calcifications are present. IMPRESSION: Right breast tissue is extremely dense. Breast tissue appears increased in density compared to the prior exam, particularly the lateral aspect and appears nonspecific. Follow-up MRI examination of the breasts with and without intravenous gadolinium contrast is recommended for further evaluation. If MRI is not desired, follow-up complete right breast ultrasound study with additional attention to the lateral aspect of the breast would be recommended. BIRADS 0 - Incomplete: Needs Additional Imaging Evaluation DENSITY: The breasts are extremely dense, which lowers the sensitivity of mammography. FOLLOW-UP: Additional Imaging Breast MRI. Board Certified Radiologists. Accredited by the ACR and FDA. MAMMOGRAPHY IS VERY IMPORTANT TO YOUR HEALTH. THE [place] [employer] GUIDELINES RECOMMEND THAT WOMEN 40 YEARS OF AGE AND OLDER SHOULD HAVE A MAMMOGRAM EVERY YEAR. A REMINDER LETTER WILL BE SENT AT THE APPROPRIATE TIME. ELECTRONICALLY SIGNED BY: Charles Torres M.D. Abnormal Not Available Eugenia 12-13-2024 [facility] Telephone ([facility]) MICHELLE BETANCOURT ([id number]) 1980 F Date Time Provider Department 12/13/24 JOSE CRUZ REYNA [facility] During your visit today, we recorded the following information about you: Jose Cruz Reyna MD 12/13/2024 8:32 AM Signed ----- Message from Kelli Fuentes MD sent at 11/17/2024 2:17 PM EDT ----- Asher Ansari Sorry to keep bothering you with patients. This is a sweet lady (hx of cerebral palsy) comes with her mother to visits who had a melt of the cornea OS, neurotrophic OU since younger. 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 Given her improvement we think she would benefit greatly from a permanent tarso of the same size as her temporary. I discussed this in detail with her and mom and they are in agreement. She handled the temporary suture in the office without any issues and I think she would be find in the office. I wasn't sure if best to reach out to you directly or message the whole plastics team. Was hoping we could do this in the next few weeks. She is going to follow up with her remote sensing specialist in [place] (Dr Gonzalez) after the procedure. Let me know if any issues Thank you so much ! Allergies As of Date: 12/13/2024 Noted Allergy Reaction DIAZEPAM 09/24/2021 14 - Other: See Comments METOCLOPRAMIDE 09/24/2021 14 - Other: See Comments MORPHINE 04/15/2013 14 - Other: See Comments Comments: insomnia RITALIN (METHYLPHENIDATE ANALOGUE*04/15/2013 14 - Other: See Comments Comments: hyperactive Date Reviewed: 11/06/2024 Reviewed by: Allums-Roa, Marialuisa, COT - Fully Assessed Prescriptions as of 12/13/2024 - erythromycin (ROMYCIN) 5 mg/gram (0.5 %) ophthalmic ointment Use 1 application in the left eye daily at bedtime. - acyclovir (ZOVIRAX) 400 mg tablet Take 1 tablet by mouth four times daily. - food supplemt, lactose-reduced (BOOST HIGH PROTEIN) 0.06 gram- 1 kcal/mL liqd Take by mouth. - oxybutynin XL (DITROPAN XL) 5 mg 24 hr tablet Take 10 mg by mouth once daily. - Ascorbic Acid (VITAMIN C) 1,000 mg [...] four times daily. Start after surgery. - ozoaodx-bvwzdivsy-spmq min D3 500 mg(1,250mg) -200 unit per tablet [...] by mouth. 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] 09/14/2020 Gross motor impairment [R29.818, R29.898] 09/14/2020 Mixed hyperlipidemia [E78.2] 09/14/2020 Seasonal allergies [J30.2] 09/14/2020 Statin declined [Z53.20] 09/14/2020 Tobacco dependence [F17.200] 09/14/2020 12/11/2020 Underweight [R63.6] 09/14/2020 Encounter Status:Closed by JOSE CRUZ REYNA on 12/13/24 [facility] 11-29-2024 [facility] Telephone ([facility]) MICHELLE BETANCOURT ([id number]) 1980 F Date Time Provider Department 11/29/24 JOSE CRUZ REYNA [facility] During your visit today, we recorded the following information about you: Jose Cruz Reyna MD 11/29/2024 4:20 PM Signed Pre-Procedure Note Patient referred by Dr. Fuentes, cornea, for consideration of permanent lateral tarsorrhaphy, 30%. Voicemail messages left. Patient last seen by Dr. Fuentes 11/17/24, resolution of thinning and epithelialization of descemetocele with temporary tarsorrhaphy. Discussed plan to convert to permanent tarsorrhaphy. Asessment: Sterile Melt, left eye - Scenario described above. - Discussed procedure in detail with patient. No dressing will be placed, antibiotic ointment will be applied to the incision 4x daily. Sutures will be dissolvable. Risks of procedure include temporary discomfort or numbness in the area of the surgery. There will be a scar anywhere an incision is made, though Dr. Reyna will take efforts to minimize this. Less likely risks include hypertrophic scar, bleeding, hematoma, infection, inflammation, damage to nearby structures (nerve or muscle) resulting in loss of function, poor cosmesis. Patient understands and would like to proceed. Plan: Permanent lateral tarsorrhaphy 30% left eye Will continue to attempt to reach patient via phone to schedule Allergies As of Date: 11/29/2024 Noted Allergy Reaction DIAZEPAM 09/24/2021 14 - Other: See Comments METOCLOPRAMIDE 09/24/2021 14 - Other: See Comments MORPHINE 04/15/2013 14 - Other: See Comments Comments: insomnia RITALIN (METHYLPHENIDATE ANALOGUE*04/15/2013 14 - Other: See Comments Comments: hyperactive Date Reviewed: 11/06/2024 Reviewed by: Marialuisa Apodaca COT - Fully Assessed Prescriptions as of 11/29/2024 - erythromycin (ROMYCIN) 5 mg/gram (0.5 %) ophthalmic ointment Use 1 application in the left eye daily at bedtime. - acyclovir (ZOVIRAX) 400 mg tablet Take 1 tablet by mouth four times daily. - celecoxib (CELEBREX) 200 mg capsule Take 200 mg by mouth. - food supplemt, lactose-reduced (BOOST HIGH PROTEIN) 0.06 gram- 1 kcal/mL liqd Take by mouth. - oxybutynin XL (DITROPAN XL) 5 mg 24 hr tablet Take 10 mg by mouth once daily. - Ascorbic Acid (VITAMIN C) 1,000 mg [...] four times daily. Start after surgery. - wcwvzgz-vyugjfvaa-erjc min D3 500 mg(1,250mg) -200 unit per tablet [...] by mouth. 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 MICHELLE BETANCOURT ([id number]) 1980 F Date Time Provider Department 11/04/[address] [facility] During your visit today, we recorded the [...] four times daily. Start after surgery. - szbxlgm-gmfzvondf-bhcd min D3 500 mg(1,250mg) -200 unit per tablet [...] Encounter Status:Closed by PEPITO HERNANDEZ on 11/04/24 [facility] Bacteria Eye Aerobe Culton 0 10-31-2024 Bacteria identified Aer cx Nom (Eye) ORGANISM ID: 1 Rare Staphylococcus lugdunensis QUANTITATION OF C-STREAKS: 5 colonies ORGANISM ID: 2 In thioglycollate broth only Staphylococcus epidermidis QUANTITATION OF C-STREAKS: ORGANISM ID: 3 Moderate Corynebacterium macginleyi QUANTITATION OF C-STREAKS: Greater than or equal to 15 colonies ORGANISM ID: 1 (STAPHYLOCOCCUS LUGDUNENSIS) -- ANTIBIOTIC INTERPRETATION ELAINE STATUS REFERENCE RANGE -- Oxacillin S 2 F Susceptible <=2 , Resistant >2 Oxacillin-susceptible staphylococci are susceptible to other penicilllinase-stable penicillins, beta-lactam/beta-lacta bernardo inhibitor combinations, anti-staphylococcal cephems, and carbapenems. Erythromycin [...] Resistant >8 ORGANISM ID: 2 (STAPHYLOCOCCUS EPIDERMIDIS) -- ANTIBIOTIC INTERPRETATION ELAINE STATUS REFERENCE RANGE -- Oxacillin S <=0.25 F Susceptible <=0.25 , Resistant >.25 Oxacillin-susceptible staphylococci are susceptible to other penicilllinase-stable penicillins, beta-lactam/beta-lacta bernardo inhibitor combinations, anti-staphylococcal cephems, and carbapenems. Erythromycin [...] Resistant >8 ORGANISM ID: 3 (CORYNEBACTERIUM MACGINLEYI) -- ANTIBIOTIC INTERPRETATION ELAINE STATUS REFERENCE RANGE -- Penicillin G I 0.25 F Susceptible <=0.12 , Intermediate >.12 , Resistant >2 Ceftriaxone S 1 F Susceptible <=1 , Intermediate >1 , Resistant >2 Erythromycin R >2 F Susceptible <=0.5 , Intermediate >.5 , Resistant >1 Clindamycin NS >1 F Susceptible <=0.5 , Nonsusceptible >.5 Vancomycin S <=0.50 F Susceptible <=2 , Nonsusceptible >2 Abnormal [facility] Comment on above: Performed By: #### 2 4321-2 #### [facility] CLIA [id number] [address] [place] [address] [place] Basic metabolic 2000 panelon 10-31-2024 Anion gap [Moles/Vol] 10 mmol/L Normal 8-15 [facility] Comment on above: Order Comment: Speci men Type: BLOOD SPECIMEN Ordering Facility: [facility] Address: [address] [place], [place] [address] Performed By: #### 2 4321-2 #### [facility] CLIA [id number] [address] [place], [place] [id number] [place] Calcium [Mass/Vol] 8.8 mg/dL Normal 8.5-10.2 [facility] Comment on above: Order Comment: Speci men Type: BLOOD SPECIMEN Ordering Facility: [facility] Address: [address] [place], [place] [address] Performed By: #### 2 4321-2 #### [facility] CLIA [id number] [address] [place], [place] [address] [place] Chloride [Moles/Vol] 106 mmol/L Normal 98-107 [facility] Comment on above: Order Comment: Speci men Type: BLOOD SPECIMEN Ordering Facility: [facility] Address: [address] [place], [place] [address] Performed By: #### 2 4321-2 #### [facility] CLIA [id number] [address] [place], [place] [address] [place] CO2 [Moles/Vol] 26 mmol/L Normal 22-30 [facility] Comment on above: Order Comment: Speci men Type: BLOOD SPECIMEN Ordering Facility: [facility] Address: [address] [place], [place] [address] Performed By: #### 2 4321-2 #### [facility] CLIA [id number] [address] [place], [place] [address] [place] Creatinine [Mass/Vol] 0.83 mg/dL Normal 0.58-0.96 [facility] Comment on above: Order Comment: Speci men Type: BLOOD SPECIMEN Ordering Facility: [facility] Address: [address] [place], [place] [address] Performed By: #### 2 4321-2 #### [facility] CLIA [id number] [address] [place] [address] [place] Creatinine and Glomerular filtration rate.predicted panel (S/P/Bld) 89 mL/min/1.73m??? Normal >=60 [facility] Comment on above: Order Comment: Sylvain vogel Type: BLOOD SPECIMEN Ordering Facility: [facility] Address: [address] [place] [address] Result Comment: Carol mated Glomerular Filtration Rate [...] GFR. Performed By: #### 2 4321-2 #### [facility] CLIA [id number] [address] [place] [address] [place] Glucose [Mass/Vol] 81 mg/dL Normal 74-99 [facility] Comment on above: Order Comment: Sylvain vogel Type: BLOOD SPECIMEN Ordering Facility: [facility] Address: [address] [place] [address] Result Comment: The [place] [employer] Association (ADA) provides guidance for cutoff [...] Standards of Medical Care in Diabetes 2016, [place] [employer]. Diabetes Care. 2016.39(Suppl 1). Performed By: #### 2 4321-2 #### [facility] CLIA [id number] [address] [place] [address] [place] Potassium [Moles/Vol] 4.0 mmol/L Normal 3.7-5.1 [facility] Comment on above: Order Comment: Speci men Type: BLOOD SPECIMEN Ordering Facility: [facility] Address: [address] [place] [address] Performed By: #### 2 4321-2 #### [facility] CLIA [id number] [address] [place] [address] [place] Sodium [Moles/Vol] 142 mmol/L Normal 136-144 [facility] Comment on above: Order Comment: Speci men Type: BLOOD SPECIMEN Ordering Facility: [facility] Address: [address] [place] [address] Performed By: #### 2 4321-2 #### [facility] CLIA [id number] [address] [place] [address] [place] Urea nitrogen [Mass/Vol] 4 mg/dL Low 7-21 [facility] Comment on above: Order Comment: Speci men Type: BLOOD SPECIMEN Ordering Facility: [facility] Address: [address] [place] [address] Performed By: #### 2 4321-2 #### [facility] CLIA [id number] [address] [place] [address] [place] CBC W Auto Differential pane l (Bld)on 10-31-2024 Basophils (Bld) [#/Vol] 0.10 10*3/uL Normal <0.11 [facility] Comment on above: Order Comment: Speci men Type: BLOOD SPECIMEN Ordering Facility: [facility] Address: [address] [place] [address] Performed By: #### 2 4321-2 #### [facility] CLIA [id number] [address] [place] [address] [place] Basophils/100 WBC (Bld) 1.5 % Normal [facility] Comment on above: Order Comment: Speci men Type: BLOOD SPECIMEN Ordering Facility: [facility] Address: [address] [place] [address] Performed By: #### 2 4321-2 #### [facility] CLIA [id number] [address] [place] [address] [place] Differential cell count method Nom (Bld) Auto Normal [facility] Comment on above: Order Comment: Speci men Type: BLOOD SPECIMEN Ordering Facility: [facility] Address: [address] [place] [address] Performed By: #### 2 4321-2 #### [facility] CLIA [id number] [address] [place] [address] [place] Eosinophils (Bld) [#/Vol] 0.15 10*3/uL Normal <0.46 [facility] Comment on above: Order Comment: Speci men Type: BLOOD SPECIMEN Ordering Facility: [facility] Address: [address] [place] [address] Performed By: #### 2 4321-2 #### [facility] CLIA [id number] [address] [place] [address] [place] Eosinophils/100 WBC (Bld) 2.3 % Normal [facility] Comment on above: Order Comment: Speci men Type: BLOOD SPECIMEN Ordering Facility: [facility] Address: [address] [place] [address] Performed By: #### 2 4321-2 #### [facility] CLIA [id number] [address] [place] [address] [place] Erythrocyte distribution width (RBC) [Ratio] 13.2 % Normal 11.5-15.0 [facility] Comment on above: Order Comment: Speci men Type: BLOOD SPECIMEN Ordering Facility: [facility] Address: [address] [place] [address] Performed By: #### 2 4321-2 #### [facility] CLIA [id number] [address] [place] [address] [place] Hematocrit (Bld) [Volume fraction] 35.4 % Low 36.0-46.0 [facility] Comment on above: Order Comment: Speci men Type: BLOOD SPECIMEN Ordering Facility: [facility] Address: [address] [place] [address] Performed By: #### 2 4321-2 #### [facility] CLIA [id number] [address] [place] [address] [place] Hemoglobin (Bld) [Mass/Vol] 12.2 g/dL Normal 11.5-15.5 [facility] Comment on above: Order Comment: Speci men Type: BLOOD SPECIMEN Ordering Facility: [facility] Address: [address] [place] [address] Performed By: #### 2 4321-2 #### [facility] CLIA [id number] [address] [place] [address] [place] Immature granulocytes (Bld) [#/Vol] 10*3/uL Normal <0.10 [facility] Comment on above: Order Comment: Speci men Type: BLOOD SPECIMEN Ordering Facility: [facility] Address: [address] [place] [address] Performed By: #### 2 4321-2 #### [facility] CLIA [id number] [address] [place] [address] [place] Immature granulocytes/100 WBC (Bld) 0.3 % Normal [facility] Comment on above: Order Comment: Speci men Type: BLOOD SPECIMEN Ordering Facility: [facility] Address: [address] [place] [address] Performed By: #### 2 4321-2 #### [facility] CLIA [id number] [address] [place] [address] [place] Lymphocytes (Bld) [#/Vol] 2.32 10*3/uL Normal 1.00-4.00 [facility] Comment on above: Order Comment: Speci men Type: BLOOD SPECIMEN Ordering Facility: [facility] Address: [address] [place] [address] Performed By: #### 2 4321-2 #### [facility] CLIA [id number] [address] [place] [address] [place] Lymphocytes/100 WBC (Bld) 35.2 % Normal [facility] Comment on above: Order Comment: Speci men Type: BLOOD SPECIMEN Ordering Facility: [facility] Address: [address] [place] [address] Performed By: #### 2 4321-2 #### [facility] CLIA [id number] [address] [place] [address] [place] MCH (RBC) [Entitic mass] 33.8 pg Normal 26.0-34.0 [facility] Comment on above: Order Comment: Speci men Type: BLOOD SPECIMEN Ordering Facility: [facility] Address: [address] [place] [address] Performed By: #### 2 4321-2 #### [facility] CLIA [id number] [address] [place] [address] [place] MCHC (RBC) [Mass/Vol] 34.5 g/dL Normal 30.5-36.0 [facility] Comment on above: Order Comment: Speci men Type: BLOOD SPECIMEN Ordering Facility: [facility] Address: [address] [place] [address] Performed By: #### 2 4321-2 #### [facility] CLIA [id number] [address] [place], [place] [address] [place] MCV (RBC) [Entitic vol] 98.1 fL Normal 80.0-100.0 [facility] Comment on above: Order Comment: Speci men Type: BLOOD SPECIMEN Ordering Facility: [facility] Address: [address] [place] [address] Performed By: #### 2 4321-2 #### [facility] CLIA [id number] [address] [place], [place] [address] [place] Monocytes (Bld) [#/Vol] 0.42 10*3/uL Normal <0.87 [facility] Comment on above: Order Comment: Speci men Type: BLOOD SPECIMEN Ordering Facility: [facility] Address: [address] [place] [address] Performed By: #### 2 4321-2 #### [facility] CLIA [id number] [address] [place] [address] [place] Monocytes/100 WBC (Bld) 6.4 % Normal [facility] Comment on above: Order Comment: Speci men Type: BLOOD SPECIMEN Ordering Facility: [facility] Address: [address] [place] [address] Performed By: #### 2 4321-2 #### [facility] CLIA [id number] [address] [place] [address] [place] Neutrophils (Bld) [#/Vol] 3.59 10*3/uL Normal 1.45-7.50 [facility] Comment on above: Order Comment: Speci men Type: BLOOD SPECIMEN Ordering Facility: [facility] Address: [address] [place] [address] Performed By: #### 2 4321-2 #### [facility] CLIA [id number] [address] [place] [address] [place] Neutrophils/100 WBC (Bld) 54.3 % Normal [facility] Comment on above: Order Comment: Speci men Type: BLOOD SPECIMEN Ordering Facility: [facility] Address: [address] [place] [address] Performed By: #### 2 4321-2 #### [facility] CLIA [id number] [address] [place] [address] [place] Nucleated RBC (Bld) [#/Vol] 10*3/uL Normal <0.01 [facility] Comment on above: Order Comment: Speci men Type: BLOOD SPECIMEN Ordering Facility: [facility] Address: [address] [place] [address] Performed By: #### 2 4321-2 #### [facility] CLIA [id number] [address] [place] [address] [place] Nucleated RBC/100 WBC (Bld) [Ratio] 0.0 /100 WBC Normal [facility] Comment on above: Order Comment: Speci men Type: BLOOD SPECIMEN Ordering Facility: [facility] Address: [address] [place] [address] Performed By: #### 2 4321-2 #### [facility] CLIA [id number] [address] [place] [address] [place] Platelet mean volume (Bld) [Entitic vol] 9.8 fL Normal 9.0-12.7 [facility] Comment on above: Order Comment: Speci men Type: BLOOD SPECIMEN Ordering Facility: [facility] Address: [address] [place] [address] Performed By: #### 2 4321-2 #### [facility] CLIA [id number] [address] [place] [address] [place] Platelets (Bld) [#/Vol] 278 10*3/uL Normal 150-400 [facility] Comment on above: Order Comment: Speci men Type: BLOOD SPECIMEN Ordering Facility: [facility] Address: [address] [place] [address] Performed By: #### 2 4321-2 #### [facility] CLIA [id number] [address] [place] [address] [place] RBC (Bld) [#/Vol] 3.61 10*6/uL Low 3.90-5.20 [facility] Comment on above: Order Comment: Speci men Type: BLOOD SPECIMEN Ordering Facility: [facility] Address: [address] [place] [address] Performed By: #### 2 4321-2 #### [facility] CLIA [id number] [address] [place] [address] [place] WBC (Bld) [#/Vol] 6.60 10*3/uL Normal 3.70-11.00 [facility] Comment on above: Order Comment: Speci men Type: BLOOD SPECIMEN Ordering Facility: [facility] Address: [address] [place] [address] Performed By: #### 2 4321-2 #### [facility] CLIA [id number] [address] [place] [address] [place] CONSULTon 10-31-2024 CONSULT HNO ID: [id number] Author: PEPITO HERNANDEZ MD Service: Ophthalmology Author Type: Resident Type: Consults Filed: 10/31/2024 21:06 Note Text: Attestation signed by Kelli Fuentes MD at 11/01/2024 8:06 AM I reviewed the pertinent patient history and agree with the resident's recommended plan for care. Though I did not see the patient, I was immediately available to see the patient. Kelli Fuentes MD Fellow, Cornea, External Disease, and Refractive Surgery [facility], [facility] OPHTHALMOLOGY CONSULTATION REASON FOR CONSULTATION Concern for descemetocele ASSESSMENT/RECOMMENDAT IONS Sterile melt, left eye History of HSV [...] was seen by home eye doctor in [place] (Dr. Gonzalez) 1 month ago and things were stable -Seen today by Dr. Gonzalez who noted central descemetocele and sent patient to [facility] main ED for further management -On exam [...] covered till follow up appointment 8:30am at [facility] with Dr. Beltran Olson -Nothing to eat or drink starting at midnight incase surgery is pursued tomorrow -Start Valtrex (Valacyclovir) 1g 3x daily -Start 1g of vitamin C daily -Decrease the pred forte (pink top) to once daily -Moxifloxacin 4x daily left eye Follow-up: Wednesday 8:30am at [facility] with cornea fellow Dr. Beltran Hernandez MD Ophthalmology Resident Staffed with Cornea fellow Dr. Fuentes and Cornea attending Dr. See Please contact me on [employer] chat during business hours with any questions or concerns Please [place] [phone] after 5pm and on Weekends Michelle Betancourt [id number] October 31, 2024 5:53 PM POHx/POSx: HSV [...] included)... Normal [facility] ED PROV NOTEon 10-31-2024 ED PROV NOTE HNO ID: [id number] Author: ISRA BAUTISTA PA-C Service: ? Author Type: Physician Pluck Trimmer Type: ED Provider Notes Filed: 10/31/2024 21:17 [...] blurry vision. 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 Patient referred to [facility] for further evaluation. Patient denies drainage from the eye, nausea, vomiting, headache, fever, chills. Patient does smoke. She denies drug use or alcohol use. CBC reviewed - no leukocytosis or anemia or thrombocytopenia Patient advised to -Keep eye covered till follow up appointment 8:30am at [facility] with Dr. Beltran Olson -Nothing to eat or drink starting at midnight incase surgery is pursued tomorrow -Start Valtrex (Valacyclovir) 1g 3x daily -Start 1g of vitamin C daily -Decrease the pred forte (pink top) to once daily -Moxifloxacin 4x daily left eye DC home in good condition ISRA BAUTISTA 10/31/242116 Normal [facility] ED PROV NOTE HNO ID: [id number] Author: HARIKA FISCHER PA-C Service: Emergency Medicine Author Type: Physician Pluck Trimmer Type: ED Provider Notes Filed: 10/31/2024 21:32 Note Text: ED Provider Note Patient Name: Michelle Betancourt : 1980 SERVICE DATE: 10/31/24 History Patient presents with: Eye Complaint: Left eye redness, 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 Patient referred to [facility] for further evaluation. Patient denies drainage [...] (ANC) 3.59 Lymph% 35.2 Abs Lymph 2.32 Seneca% 6.4 Abs Seneca 0.42 Eosin% 2.3 Abs Eosin 0.15 Baso% [...] pending. Pt will follow up with the [facility]. Pt educated to return to ED immediately with new or worsening symptoms. History and Record Review Clinical information obtained from an independent historian. History obtained from or confirmed by: parent. External record(s) reviewed: other (see comments). Findings from review of other records: medical hx reviewed Different (more content not included)... Normal [facility] ED Triage Noteon 10-31-2024 ED Triage Note HNO ID: [id number] Author: TJ YAP MD Service: Emergency Medicine Author Type: Physician Type: ED Triage Notes Filed: 10/31/2024 16:29 Note Text: ED TRIAGE PROVIDER NOTE Patient Name: Michelle Betancourt Service Date: 10/31/24 BRIEF HPI: This is [...] this encounter. Needs ophtho eval SIGNATURE: Tj Yap MD Normal [facility] Fungus Spec Culton 5 Fungus identified Cx Nom (Unsp spec) CULTURE, FUNGAL: No Fungus isolated after 28 days Normal [facility] Comment on above: Performed By: #### 2 4321-2 #### [facility] CLIA [id number] [address] [place] [address] [place] HERPES SIMPLEX TYPE 1 AND 2 IGon 10-31-2024 HSV IGG 1 QUALITATIVE Positive Abnormal Negative [facility] Comment on above: Order Comment: Speci men Type: BLOOD SPECIMEN Ordering Facility: [facility] Address: [address] [place] [address] Result Comment: 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 Performed By: #### H SVG12 #### [facility] CLIA [id number] [address] [place] [address] [place] HSV IGG 2 QUALITATIVE Negative Normal Negative [facility] Comment on above: Order Comment: Speci men Type: BLOOD SPECIMEN Ordering Facility: [facility] Address: [address] [place] [address] Result Comment: No e vidence of past history of HSV-2 infection. Negative result cannot exclude HSV-2 infection if the specimen collected 4-6 weeks after a primary episode of HSV-2 infection. Early institution of antiviral agents may delay or abrogate specific humoral response. Performed By: #### H SVG12 #### [facility] CLIA [id number] [address] [place] [address] [place] BI MAMMOGRAM SCREENING [...] by: YUDY MATOS Date: 2022-06-04 19:03 Normal [facility] Patient Instructionson 09-24 Implementation Analyst Authentication Interface Message Text Manage your symptoms [...] or blue. Where can I learn more? [employer] [email or web address] [email or web address]/prev ention-wellness/exerci se-fitness/inj ury-rehab/shoulder-maral n.html [employer] http://orthoinfo.aaos. org/PDFs/X52887.pdf Last Reviewed Date 2018-03-14 Consumer Information Use and Disclaimer This information is not specific medical advice and does not replace information you receive from your health care provider. This is only a brief summary of general information. It does NOT include all information about conditions, illnesses, injurie (more content not included)... Normal [employer] Progress Noteson 09-24-2021 Implementation Analyst Authentication Interface Message Text Chief complaint Chief [...] with history of underlying rheumatologic disease or Crocheron's disease. No acute fracture or dislocation. A/P [...] of condition, changes, or failure to improve. MASOUD Ramos Normal [employer] XR SHOULDER RIGHT MINIMUM 2 VIEWSon [...] MINIMUM 2 VIEWS MACRO: None Normal [employer] [facility] Coding Summary.on 07-16-2021 Coding Summary. CD:[id number] Gh 0bWw+PGhlYWQ+PO9NZJEgV 99czXJadT9GS3eKID9JYJL XZLIAQX0MEJ7byHR0CCznX 2VybiAv ZentoRNwTK58BIq9JIE1hC qtAXqtyY6lbAViM3j2AbLb WO55eI05XJgtKCArTaO6Ib ZpbjsgbWFy W9pbSbEohYRlQpp+PHRhYm xlIHdpZHRoPScxMDAlJyBz iJigTG3iIb2eNYCrIURjkS xhcHNlOiBj w8tyDTOuJYyhTT1jeEueO2 ZhtTX9APRcx3b0Gs63rZC+ QJYuYGG4qXzvORske526Pt Hdj1ibJJE8 kAZaFXjyKMW3H07sg6B0DL YaUCVvGIC2vWB4aS2adKhf bpjmY5BkfRYlXiK5ZQP1zR LldD5quOrc cagjiQ5tLct+K97FDI7RVM QSCP9VUcy1J9HhYvbubIZ+ KR00XPAvQZ12gVAnlWTks8 tglXy4BtJr EXPiVAT7qXrjCMobu0PkOM YwH39uvSUux3A5YVTgaUlg bVAePgHvpWV3lH8lPNotak xmb8vxnqui Sxfyd4paqj06fN82B88wCQ bkUUKsDJX5BIVnECNfyHwp wn0exD9gIf1+VTfwa9pyo1 vndXf2LyAr FZHbzwFniWftFUX0f2JxKr 16F4JidWiub0MhVne7ze26 zSQga9V7wUO0PEarBWBtaT 2aPGzmNdI3 IUIbJxRfmY86tHSzIWkbVt 2bvUdnbBudRR2cQVFnugwc XHUleN8eHEZttFVpkYrcXB 4wNTBpbjtm p608ObApSYO2ESGddWJuF5 DlpW2zYzXdEYNnHLTmG7Qu dTOxOWyeW721GAneNhQ8TC LcopZkJ1Ie PEIdrVneXeJ1b5R5Kb6On8 WrdfuwOWC6EVgkSRXhFqD3 BwKpZdI3X5XgOek8PNYwtI ykVU3hC8Zs MLXuujemrdbtpQJ9OIGzCT TulN63qDCbWYmlDh8gj6Q0 e349AKElKXBdqM78Yg6gwR ogMTBwdCBU aG9yntbuc6bcfdilFuPrHW IdPHy3RJm5DPSuqItnLvSi RHG8CaI1MMY1mMFcyJ1gtC vygnaiaC7v Oyc+E18fkD7hORJ9EVR1yp olORCcorJxTR32HF25O6Qh PjwvdGFibGU+PGRpdiBzdH syYA7tJzVk i5nay4ZsMRkjX2DmSCYuKH arNph2VINwZKM4nKU6gI5v SYVuHReok4A5aDR0D6Nazi Xeik3gf2kz VMNeUPnsE43pbCGiu2J6MQ HzeRS1AVGcsOcvNlCvyI63 Oyc+MNOqdZjra1RoRsjwo4 fnc5udaAh5 HdXgUJRadkGamGgaJMF5v5 AvOt20L76jEWzmWWJcBMLm JODzLECaeOqyuw3biE5fVc 8+PGNvbCB3 rNU9uQ4bSQTiQcE7XTqpQ6 04XeQamPCbXonji7tps9ds pHe3SnQvYPLdmjXuiEzqCU D5q3YlTd04 Z94xSTyzSDOiZCSzXQGbTI LegSnply9vmU3qPt0+PC9j m1imqp01xY96cNN+PHRkIH Z9kLzpWOus CFPshV0gIIijMuQ5SYSxBu OslL52oBJqPGqkPh4emCdt dWkqKF3hEPAjaiinx984Pp Dwf3leZPOx jWWaLIioJNU9T82xt9E7MI GuQHYxNYI2hIP3hO4chPml bjogbGVmdDsgdmVydGljYW zaSUyqT058 IHRvcDsnPlBhdGllbnQgTm MvDJn8B2DkDhg6ZZQhuVbo HE5wmGEsCZsbVi1gcRqnbC neUY2jVMFf qvlae312OwCoq8mfLAEupZ KcEZknTUF8W28xx6Q3OHDv QFFgGFI1vTU8xM4wzOeqih ogbGVmdDsg mrShbDdoAZfkFLyhZ155UU RvcDsnPkJpcnRoIERhdGU6 UR82CM98dSNca9N4uMW8Y4 BhZGRpbmct jspunXE7HBTnCZJznQ94Pg 6qkCqcOm4bCCIgVLV5LFEu eZHqD9BajV2jLrPlCMRoOO RgV2SkmWQh AGvnI002JMqxDiJ5YHYyjs UnI6FkDITerGnrTzF0k3I9 Wm1EN5S1DK75UN38tRMtx5 U4xYY5M0Ub IMSgyssasmvqfSW8RWSsWQ KfcV62Nd2eiNcpRp7mTBFl QOE7HHQnxARcQ5WkrG6mVb AjMDAwMDAw A9JxjNWjKZxmI021VVezLh Y3HQNikeQkS6MqPNYbxUoz TbA7f2H1Fk1MCVa9SA97CK 10aYExd6X6 fTD9T0SsRTPrgwudpotnmJ P4RHDoUAQshQ13Rb6ywBlw Xw5fZVOfDPD9NDRezOQjU3 BemU2qHmYj AYFdBTAzI0VxcIPbBHkqB4 09IUkfVxA2CZRyntOaU2Be QQKrqZkhVnR1k7U6Ff1EBX ScJA71BVC2 xTH4WZ99YQ21H2CxWrknoU FibGU+PHRhYmxlIHdpZHRo TPtuHEUrQaWrdDkzGU2vGj 9yZGVyLWNv yBxhkIQcRfUro5wwVSJgVD gtNB0rzYksZ6OpaXW8TQLp g7m2Ga88R04sU7RvlZS+PG CkvCE0gAS8 zQ6fVmImTtF8QKjuD173Lb YprUHsSyydq5bsf0ldoQp7 JdF1WVZxpjEjpRhiJVC3d8 EtGr22K75s IHdpZHRoPSIxNSUiIHZhbG bhxq4haX9cNf1+PGNvbCB3 bHK2oF1dWbYrUqQ8WEfjV6 49InRvcCIv Nexjc9oqy7tauWy2BuJkMN VlneSgaXlwCIW8x8KuXw97 J2RziYdod1HhUbx7sf18nN Sdp0Z5uYG1 Z8IfPQMbutahjYTehDpjFR 0zFERtwtqhLWObkQ4gLMJg N1u5WiFsZvE0XBhdR0Yrkm O8SHCbxBLx KNiiHWQ3V65yy6L1AZHsFI HnZOB8xDH0rK9nsWivuswc bGVmdDsgdmVydGljYWwtYW azR546WGTq tZpyRBBwtS7gJNQikDVjcN axUE2rOJVhanuuJyFEHE4Z UppETNQFWZOKUUZVXQ43FO 69wNBla7B4 iDZ8S4PtGFJinkccwgidrU Y8EPKkANSikT97bAKeOVgw Qg9uy7I8y472SVVxZYLmnF 08Zn6jbHgz LUAqzOGBbN6jziisq6unnw zaRvQcFCEiQRr5NYr6FCPw pFlgHtZlKAX3FnW0PUA6oP GqeS7slEww cxuboG9gNor+MDcvMzAvMT c4XNfwkRU+DJIeIBX2nVde IRzdFBQxnZ5wVEMpT3c2Ht GuXeQ2FYdr O9RxXDWcxhoiHr84rZ8vAr CkMjI2NUokI7WshfJ4YHHj rFTkLZyrGLT2E92hs0Q8FJ MwMDAwMDA7 uJQ9mW4yhTzpijotsLFtyH sjwaYwbOpdIYxgDJdbX882 IHRvcDsnPjQyIFllYXJzPC 78UF82pQEy y2J6bPH5S3OlXCJaaxtsbk wobWQ2XKGdXGQkoP26dIPo KZvoCx8aj6U1s201DRDrEK LbyP78Vo6x xQjwDAVsjLPOyQ9ytunen2 xdzkyuXaIoDMXlROp2HFr8 WQWcgTyhNqSfFTD4ZfC2ZO S0dMYbmD7e hUnqwfbpmB8yHyv+RmVtYW bcPU95BB68bRFed0G6lFD2 B6WhCCGybycfimkhlSV3HR NmCMJssN42 aKHiPLspLh7np7O1b474ZN SoQFUiaP95Pn3jdTtcRABg yVYLwM1oslovw0dvrqkzZl AwMDAwMDt0 ILi3GSRyrZoqOjNwDYW9Pe P2JMU7oFDyzN3rjPualjlm aZ8oOaf+IWLnZXDej7Fkk5 PuPL04UR77 G1SiLphieWAgzME+PHRhYm xlIHdpZHRoPScxMDAlJyBz tTktLT7lUw2gPFEzIADqgC xhcHNlOiBj p1coHYGqWCtnFA1agHkbA9 AivTG6DNMvw1c9Bk31L13v Y3LdgYX+IBTvdPB3kUA0tT 1eSrPkMpO5 TXfgY387MbIurDQyTsijx7 nga5odqCr9FnOvYQDmzsRr nFloVKE1n6HrNq22C32yAN dpZHRoPSIy RAZeBYDyuQlqvu0irR2vVc 8+UNVbgHX1xEA9oJ7xSdAz UqZ7TFspL685RvOvtSWkMz fxR76iI4Wi dXA+ONKnBgf7UCHsxUiaBX 8rlCXqRPpjQn0rSUK4PzEm MhDoCAcaO9YaZTJobmdqnn uhlEL6FJFt UWPlmY87Zx9dyNlhTz7hRV JbACT4GVIfqSNtL1LnfS8u TkYlYQFkMPTrU7AbnDAmWV aaK946EBpj IsQ6KDGpmxIzI7SyQRHqyM hzClG3u8P7Ud1NmLhkwNPn ZO6oXqKtHHi2E8AiJbn4FW BwxVexFP7x bWSdXUguBy3obXzjfRgqQC 4dVACcpypoo810TpWyo5nd FPQanWAvKRhtICU3N24zi4 A4ULChQXUr WGI9gFV5rU4tjLfzgupsqG VmdDsgdmVydGljYWwtYWxp N585PSWglKdtRoGNGdw4S9 XwRnw4SEIs pTapVZ7rwBXkMVkaPt7ugP gbsXmkKE1nBWPloipwm361 NtOny8wzAHZbtTZfULfvIQ E9S32ek6D7 NRAaCGUbBPX9cYZ4pH6kfK lnbjogbGVmdDsgdmVydGlj YSswHVfhI108WQChhBmkOe 5VEli8A4Lb Swj8DKPvuTiuKP6cwBSpVL yqSb7atIqvuHpeOU5xJEJi wkgpv815RhPmf6jtSRCspR QgVGltZXM7 X55eh4W5EUXqKELhAKO3yH Q8nW4fdBaaaimgiNBegUnp phRlcFynUYqdLIghW565HX RvcDsnPlBh eWVyOjwvdGQ+FV55df06P8 LuObisTxe7CBUiQGN0vTJ1 gH2yTHUoDMzcc8D9fIH2F5 FlvfXguv4s b2xs (more content not included)... Normal [facility] PAP [id number] 07-02-2021 Cytology report Cyto stain Doc (Cvx/Vag) Note Invalid Interpretation Code [facility] Comment on above: Result Comment: TEST S RESULT FLAG UNITS REF RANGE LAB Clinician Provided Cytology Information Source.............[employer] LMP / Prev Treat...[id number] No. of containers..01 ThinPrep Vial DIAGNOSIS: 01 NEGATIVE FOR INTRAEPITHELIAL LESION OR MALIGNANCY. FUNGAL ORGANISMS MORPHOLOGICALLY CONSISTENT WITH GAETANO SPECIES ARE PRESENT. Specimen adequacy: 01 Satisfactory for evaluation. Endocervical and/or squamous metaplastic cells (endocervical component) are present. Performed by: 01 Georgina Ceron, Fire Control System Installer (ASCP) . 01 Note: Note 01 The [...] <-Panic Low,>-Panic High,A-Abnormal,AA-Critical Abnormal Performed at: 01 [facility] [address] Racheal Rangel MD, Performed By: #### 1 [id number] #### [facility] [address] [place] [address] HPV 16+18+31+33+35+39+45+ 51+52+56+58+59+66+68 DNA Probe+sig amp Ql (Cvx) Negative Invalid Interpretation Code Negative [facility] Comment on above: Result Comment: This nucleic acid amplification test detects fourteen high-risk HPV types (16,18,31,33,35,39,45,51,52,56,58,59,66,68) without differentiation. Performed at: [facility] [id number] MD Claire Springer Performed at: [facility] [id number] MD Claire Springer Performed By: #### 1 [id number] #### [facility] [address] [place] [address] PAP [id number] 06-27-2021 Collection Technique BRUSH-SPATULA Normal [facility] Comment on above: Performed By: #### 1 [id number] #### [facility] [address] [place] [address] Gynecological Body Site ENDOCERVIX Normal [facility] Comment on above: Performed By: #### 1 [id number] #### [facility] [address] [place] [address] LMP or Menopause Date [id number] Invalid Interpretation Code [facility] Comment on above: Performed By: #### 1 [id number] #### [facility] [address] [place] [address] Previous Cytology Negative Normal [facility] Comment on above: Performed By: #### 1 [id number] #### [facility] [address] [place] [address] Previous Treatment NONE Normal [facility] Comment on above: Performed By: #### 1 [id number] #### [facility] [address] [place] [address] Physician Orderon 06-26-2021 Physician Order [id number] 0CD:[address] [facility] Coding Summaryon 03-04-2021 Coding Summary [employer] 64 PgsntuefUZq5yUk+PGhlYW Q+VK1HLEPrN84mjSXewZ2X S9xXYN3JQFTCPOYIFU5FCP 9aqED7VFseB5ManeAy RpncmZEnTH06SQk6KBV5uZ hoUAxmlR2eyECgB0u1MrHt DF27nI69YRkxIYShZyY8Nu ZpbjsgbWFy A6btPmSruIYzEma+PHRhYm xlIHdpZHRoPScxMDAlJyBz iJhhAZ7lDi3jBENiHYAftP xhcHNlOiBj j6gvNWNbLAwtNN0wdQaqI5 YgrBA8IVPrc1d8Wx00zLG+ TOQjYTD8rWmzHRukn625Vi Yne8ewXZR8 eKEcLGujQIY3Z00jb1X6TR RcJMMxBMW9eFB2sQ8ceEha yuloB6SbsJRdUmE2ZYT7nP XtgQ0upDzt kqxbsO0qFdk+K92QEJ9SAT RULW5IEuq8M5IkLroimMK+ UX98VUSpQR36nJGlgVIxb3 cipNa5TqUr BLWmNIB6mXoyCZbww7AmME WgJ15nwABsb3A2MLCcaSyb pSMqRjVtaDH7oM0iZLxpva uyb4ywsssk Ddgyi2mtrf48rL93R97rZG pyKGFiJTX8IXWtFGPsyMxh bc5opZ4oJd9+IJbow1uva1 qrzZf0WqRk ZLSaqaShdIrzPYL1n6ItIi 09C5MmnHnvj8FkUdp3pi64 xIGmk4N4gCK4ZQkbCPIgcI 9pRPnsQiM4 GBAwYhWjlW02cGTtNCmdTv 6qyEffgEkhJH6pOASeffdo GSKhzB9tXBXdpLKbvCelHX 4wNTBpbjtm l729KlNtNES5GQWunTXkM9 HezC7jQdHwEWXoCDJfX8Su lUNdFYneM571MApsKiL5NO WpawQfU4Hs FMZtvEnrVmJ5d3Z3Ns4Sx7 KwpyvdGBS9EBxtLCB5ZcZ1 JiIoZcK9S1ByLfn8YARyfM awOH9dB4Gr OJDlqddhtelrnSA6WGXsSL GunV99jNOnKBusAq8fj2N3 c635NJLsBSIhcB20Ml8qvC ogMTBwdCBU nK7koqrbv4uzsajvKpVbER ToRSv2HBu9WKVsoNunFcIj UIT2FdQ2GAA6aLLicR0naQ ajbocdwV7i Oyc+U14oqL8qLDT6OBS6ky gjQRPcxrAcDZ78CK20L8Dz PjwvdGFibGU+PGRpdiBzdH tpLY4zEiIc a7fam6DuISfyF4UqHZTyUQ dvLfr0GATwHUT7xGQ5kG5e RRIbKDgxy5P7cPU1S1Cisq Zffg5co1is MRBtGKuwA42aqGBtk3A8YG KcdGX2IWAujOlzToXbqZ70 Oyc+UPHibQxau7XkRzpfz9 hkd5jmuWf7 MpSnTRCrgtVrxBwrWHE9r3 LkPr31A38rYYufEQPpJKHs QXAoSFMiaSokmm2drE0nFc 8+PGNvbCB3 rCA4bQ4oVVImCbP7HSdzM7 48LmMueKMnFkiys5fkf8mg wVr2JtLdXOKofgTblOkoRO K6z9QzMd86 I24tLOvuMNNaLNUhKAJtCB QhfQdifi0dmR8kEe4+PC9j g7zdic59bD03tPM+PHRkIH H7fHoeMMzx UVKbpV0bGKofYcQ4ROHnEl EjpA82sEGgAHypBa7ohRfn nTpjSG7qEOLipehme546Iy Agp7msWUTo kXBqTQsdKZU8J45ur8Z6NM ErYXQsMVF5oPK5mJ5peTmc bjogbGVmdDsgdmVydGljYW jwKGmaX550 IHRvcDsnPlBhdGllbnQgTm IdBDn8F4IpLrm8NUDhaKfj FS8llYQtQHqoGp4gqDgttV hkHL6bPLIp gwpiu254UvFbw1lnOVHgbZ PzKHetXRH5P05uy6P8OQBn POIpFLQ7aTY5qM7vzIhayu ogbGVmdDsg ynHrrAimUHemOLkpX739DD RvcDsnPkJpcnRoIERhdGU6 VO57DX57aETzb0Z9bMX5J9 BhZGRpbmct dqunjUU7SKPwQCKzpQ89Fl 4hrGbyMn5cBKToGON0CJMo iCXyF8PboE4jMtMiWKEfZO PbC5QpdTVe JLmpX810AUddQwI6KWIadq XrO6XoDRVzoOosJrO8t2I4 Nb8IM9H2EV48WE18eUYdc5 V5pBT3X8Ar KPAsbzqbhmbwqSP0ASIaOV OjrX67Kr9rbNnuPc1eHSEt VPW9SJAwiGYvQ7HnzS7jYf AjMDAwMDAw L8MhuWBtSQdjO783FDhzVd B0LUOrdpRqI0SwBMDwhWev ExK9e1H0Vk3HYHv8JB69OM 57pOKwr9Z9 oAS1R0CiBZVxeehuestbzP B5FZPnTHUafH15Vq6mbGhc Uk8rWRFzNOJ8FCMmkUDsA3 RlgP9dCsKs LVSqSFYcX3FsvWLtRMsvE6 32ENbsMjD8NYJonwKqC0Yv XCQfuVkqHvL3b1R6Or7NAA BcEY16DVL7 jNP1VD58NR89E3YlIjpbcC FibGU+PHRhYmxlIHdpZHRo CHsaCAEnSmKysQlgOJ8xJd 9yZGVyLWNv vBapjJXeIfSzn6rlZMRmWZ itHM3chOelR5TbhZC3LNGj s3v7Ds72C76dH1ScnPS+PG SejVC1lTT8 fN5pTzZlTgP3WLozG625Iv TaaGOvZofji7dfi1cwzLs3 AsE8RFKmwdXoxBquGWS8y8 JjLl66D79c IHdpZHRoPSIxNSUiIHZhbG rgvh9pcW2kVi0+PGNvbCB3 yVG0uT1oGePaIjE4KNnfO2 49InRvcCIv Jyjun2nse5mhiDh8IkVnGA BfxpHubEyvJDZ9f3XqIt42 A6TmaMcsm5WcXsw8rm66hW Dzh7M6sLS4 E7QhYAGlgehvsKOmnMxgGM 7mKLOhojojZIFcfX5mNMVp C6k0DhMoHhT1ACxxK5Awxl G6ILMajWTl BSolHVZ6M94ns3F5EYFaZD SyMJT1tSI9kN5sbYjriqai bGVmdDsgdmVydGljYWwtYW ufW033ZWPm mRixMZBhxP0rTNPrnRBymJ ccUG0rKBUxnefgMbMUNW6Z SklDQELPOADYLYXYJ2STFF lORTwvdGQ+ IDSpYNS7bJzhZEppHRCpwG 6bDTGbT6d3CjHzKeM5ZRco W3BbWHVrbmnmUw40qO9jOx OvFqE9RVcc F1AmdgA8IRNetUYjJQdrRW B9C39eg1T7ZHXuCBKyZTZ6 xHN3tJ9inXsfitrblMGauB sgdmVydGlj MAetRCekZ523OZFxiUhuYe Q0YgWbGgK4Jbu8G9WaGxv4 BOJimDzmMQ1mkRTpOGecJm 1yaWdodDog XZ7bXXCuxkdyKXKrtQ4wGJ XrxFPkgZxsEI4hUACsbqen k369ZjGkJLD8CWMhxCGiV8 XxnM7sBoAx HHEgCDMdS9SzoPDxMAvmI3 79SAkjEbI9WLTrpuElH4Sg SASzkYlxDgG8k3H4Gt47BE BZZWFyczwv dGQ+ANYbQUK7rPtnASajQK EhgJ8eENHpZ1d5HjUjLcM9 OZweB7BtQOWzikixYk16aO 4fQoZyCuV8 NAcpN0UsegA3SAXdnXFtDI saFND0T11ck3Z4FFGeUWAr SFU4zAQ1qV4vbPhyfcigyU VmdDsgdmVy oHybJKdjFWdpQ833ZSZptQ snPkZFTUFMRTwvdGQ+PHRk VSH1cKrsKFgtSUSbyV4jPF XkC5h2EiFm MdK1LHxyL2PyYGGhabodCc 37bW5oNbDzZgP4EWixC3Mf usF1HNElgDHfFWeiGYY1H7 4wy0P7AJEg JOIcRGF8oCD6nF5mhNrmll ogbGVmdDsgdmVydGljYWwt ZJdzI352AKLwqUogNz4RKJ 49OG46U7Oz PjwvdGFibGU+PHRhYmxlIH dpZHRoPScxMDAlJyBzdHls WF5nVf3kKLRjYEKuhGjwkB KdErQgy2nv XKCfAWuuBP4nwTnfZ5CmkM D1DJBha9g7Ez71T19cC5In dXA+CQJniCC6yXC7cO8aOf BoYqD4XSrk A199DeBbcZBvCvxpp6hvd8 sejGh8HvDcCSUkknMqzWmx KXE2t8AlRg04V55mEOclVJ RoPSIyMCUi LBGoaQegoh7okE1wUh6+PG QgzWL8rKA7eO2cPmLmCjT1 GCvrP491HlQumIZmUahzZ9 9yH5WacIF+ XXUaUkl6MGTvmLslAS7zlV ZzICwuIi9zHWY5MfIhQnFq CObjF4NxYUDujhzeezcxbU W0SOQsDADt dM35Uu9ezGdtDt7cURSqIF Z6ZSVmwEGnY1UaoH8lDqYc SJPjPLYmF6WwyBRqLJytH0 34BLgyEwZ8 XKRrhlRnO0HsKLBcxCsgVr N1k4J6Ll7FtGuvnRAgPG0n EmKoGVc3W0KbHbh2YFKkbW coLW4ioLBb DVomBe6zwLmvgFntMN8lUM Cykzgwn138InTjj8xuNUMa aEPqTHwpXAA3T95hc2I3XT MwMDAwMDA7 sII2qS4lpCctybrjsXLwpA mficJndTuiJMnvFDubP324 REEfjKgcVdCSTmj0N0LeLl l9XNSdwFcz RN2wqTIhGQjfZk0acKqcaS okCF4eUKGweglmg835HyWr j6pkXLMshAYuDFsiUQW5U8 1ce9I4LQKq LMNdYKL3kYA8qF0jhDmgle ogbGVmdDsgdmVydGljYWwt MUisO253VELldWfdPo7NFi k7W0RhMot6 KXYqnZqgON9xdLUfLOukAf 5stXoieNvsNM7kTRDoafri i982CjViz1qtGLYxwPOzQD udAZN9M61a y4B4PMVwAFBoLRL2vHE7nK 1hbGlnbjogbGVmdDsgdmVy lYaoGPaaTPxpH943JVZmnP snPlBheWVy OjwvdGQ+DG15zb27T7IeMl jtPsd6KLWmTQO0nAY1sI2f XATjQUtdd2R2zJD4N9Ugsr Mbmb1ql6pt YXB (more content not included)... [facility] Consent Formson 02-26-2021 Consent Forms [id number]#[email or web address] [facility] Bilate ral.on 02-25-2021 ME Mammo Screening 3D Bilateral. EXAMINATION: ME Mammo Screening 3D Bilateral. HISTORY: Screening. COMPARISON: 10/12/2013 BREAST COMPOSITION: The breast tissues are heterogeneously dense. RIGHT BREAST: No significant suspicious findings. Stable benign-appearing nodule within the posterior upper inner quadrant. No significant change has occurred. LEFT BREAST: No significant suspicious findings. No significant change has occurred. [facility] [employer] was utilized for this study. RECOMMENDATIONS: Routine mammogram and clinical evaluation in 12 months. ACR birads #2: Benign finding. Assessment / Recommendation: 2-1 Normal interval follow-up Breast density: Heterogeneously Dense Recall interval: 012 months Final Dictated by: Evan Moreno MD Dictated DT/TM: 03/17/21 8:29 Signed (Electronic Signature): Evan Moreno MD 03/17/21 8:32 am Technologist: Assessment: 2-Benign finding Recommendation: Normal interval follow-up [facility] Provider [place] 02-21-2021 Provider Orders [id number] 60 [id number] [place] [address] Coding Summaryon 09-18-2020 Coding Summary CODING DATE: 09/18/2020 [facility] STATUS: Home PAYOR: Medicaid ADMIT DX: REASON [...] Catherine Chery Date Saved: 09/18/2020 08:04 am [facility] Provider [place] 09-18-2020 Provider Orders [id number] [place] [address] Coding Summaryon 03-22-2020 Coding Summary CODING DATE: 03/22/2020 [facility] STATUS: Home PAYOR: Medicaid ADMIT DX: REASON [...] Gissell Mccauley Date Saved: 03/22/2020 12:32 pm [facility] Vital Signs Date Time Vital Sign Value Performing Clinician Facility 04-10-2025 10:52-0400 Body mass index (BMI) [Ratio] 14.01 kg/m2 Susan Harrisontamara TRADE MANAGER Work Phone: [facility] 04-10-2025 10:52-0400 Body temperature 97.81 [degF] Susan Harrisontamara TRADE MANAGER Work Phone: [facility] 04-10-2025 10:52-0400 Body weight 34.75 kg Susan Hinestristin TRADE MANAGER Work Phone: [facility] 04-10-2025 10:52-0400 Diastolic blood pressure 68 mm[Hg] Susan Harrisontamara TRADE MANAGER Work Phone: [facility] 04-10-2025 10:52-0400 Heart rate 83 /min Susan Harden TRADE MANAGER Work Phone: [facility] 04-10-2025 10:52-0400 SaO2% (BldA) [Mass fraction] 96 % Susan Harden TRADE MANAGER Work Phone: [facility] 04-10-2025 10:52-0400 Systolic blood pressure 102 mm[Hg] Susan Harrisontamara TRADE MANAGER Work Phone: [facility] 02-19-2025 13:16-0400 Body mass index (BMI) [Ratio] 14.05 kg/m2 Susan Harrisontamara TRADE MANAGER Work Phone: [facility] 02-19-2025 13:16-0400 Body temperature 98.29 [degF] Susan Harden TRADE MANAGER Work Phone: [facility] 02-19-2025 13:16-0400 Body weight 34.84 kg Susan Harden TRADE MANAGER Work Phone: [facility] 02-19-2025 13:16-0400 Diastolic blood pressure 68 mm[Hg] Susan Harden TRADE MANAGER Work Phone: [facility] 02-19-2025 13:16-0400 Heart rate 112 /min Susan Harden TRADE MANAGER Work Phone: [facility] 02-19-2025 13:16-0400 Respiratory rate 18 /min Susan Harden TRADE MANAGER Work Phone: [facility] 02-19-2025 13:16-0400 SaO2% (BldA) [Mass fraction] 98 % Susan Harden TRADE MANAGER Work Phone: [facility] 02-19-2025 13:16-0400 Systolic blood pressure 98 mm[Hg] Susan Harden TRADE MANAGER Work Phone: [facility] 01-26-2025 11:35-0400 Body height 157.5 cm Osvaldo Clarke MD Work Phone: [facility] 01-26-2025 11:35-0400 Body mass index (BMI) [Ratio] 14.63 kg/m2 Osvlado Clarke MD Work Phone: [facility] 01-26-2025 11:35-0400 Body weight 36.29 kg Osvaldo Clarke MD Work Phone: [facility] 01-26-2025 11:35-0400 Diastolic blood pressure 70 mm[Hg] Osvaldo Clarke MD Work Phone: [facility] 01-26-2025 11:35-0400 Systolic blood pressure 100 mm[Hg] Osvaldo Clarke MD Work Phone: [facility] 01-17-2025 14:27-0400 Diastolic blood pressure 78 mm[Hg] Kassidy Temple DO Work Phone: [facility] 01-17-2025 14:27-0400 Heart rate 78 /min Kassidy Ly DO Work Phone: [facility] 01-17-2025 14:27-0400 Respiratory rate 20 /min Kassidy Ly DO Work Phone: [facility] 01-17-2025 14:27-0400 SaO2% (BldA) [Mass fraction] 99 % Kassidy Ly DO Work Phone: [facility] 01-17-2025 14:27-0400 Systolic blood pressure 108 mm[Hg] Kassidy Ly DO Work Phone: [facility] 01-17-2025 12:11-0400 Body height 149.86 cm Kassidy Ly DO Work Phone: [facility] 01-17-2025 12:11-0400 Body weight 36.28 kg Kassidy Ly DO Work Phone: [facility] 12-25-2024 11:35-0400 Body mass index (BMI) [Ratio] 14.52 kg/m2 Susan Fina TRADE MANAGER Work Phone: [facility] 12-25-2024 11:35-0400 Body temperature 98.6 [degF] Susan Fina TRADE MANAGER Work Phone: [facility] 12-25-2024 11:35-0400 Body weight 36.02 kg Susan Donnyz TRADE MANAGER Work Phone: [facility] 12-25-2024 11:35-0400 Diastolic blood pressure 60 mm[Hg] Susan Donnyz TRADE MANAGER Work Phone: [facility] 12-25-2024 11:35-0400 Heart rate 85 /min Susan Donnyz TRADE MANAGER Work Phone: [facility] 12-25-2024 11:35-0400 Respiratory rate 20 /min Susan Donnyz TRADE MANAGER Work Phone: [facility] 12-25-2024 11:35-0400 SaO2% (BldA) [Mass fraction] 98 % Susan Christyholz TRADE MANAGER Work Phone: [facility] 12-25-2024 11:35-0400 Systolic blood pressure 98 mm[Hg] Susan Shannenhholz TRADE MANAGER Work Phone: [facility] 11-09-2024 15:57-0400 Body mass index (BMI) [Ratio] 14.91 kg/m2 Susan Chirstyholz TRADE MANAGER Work Phone: [facility] 11-09-2024 15:57-0400 Body temperature 98.01 [degF] Susan Christyholz TRADE MANAGER Work Phone: [facility] 11-09-2024 15:57-0400 Body weight 36.97 kg Susan Christyholz TRADE MANAGER Work Phone: [facility] 11-09-2024 15:57-0400 Diastolic blood pressure 60 mm[Hg] Susan Christyholz TRADE MANAGER Work Phone: [facility] 11-09-2024 15:57-0400 Heart rate 88 /min Susan Shannenhholz TRADE MANAGER Work Phone: [facility] 11-09-2024 15:57-0400 Respiratory rate 18 /min Susan Christyholz TRADE MANAGER Work Phone: [facility] 11-09-2024 15:57-0400 SaO2% (BldA) [Mass fraction] 96 % Susan Christyholz TRADE MANAGER Work Phone: [facility] 11-09-2024 15:57-0400 Systolic blood pressure 98 mm[Hg] Susan Aichholz TRADE MANAGER Work Phone: [facility] 10-02-2024 13:59-0500 Body height 157.5 cm Damir Berger TRADE MANAGER Work Phone: [facility] 10-02-2024 13:59-0500 Body mass index (BMI) [Ratio] 15.03 kg/m2 Damir Berger TRADE MANAGER Work Phone: [facility] 10-02-2024 13:59-0500 Body temperature 98.2 [degF] Damir Berger TRADE MANAGER Work Phone: [facility] 10-02-2024 13:59-0500 Body weight 37.29 kg Damir Berger TRADE MANAGER Work Phone: [facility] 10-02-2024 13:59-0500 Diastolic blood pressure 72 mm[Hg] Damir Berger TRADE MANAGER Work Phone: [facility] 10-02-2024 13:59-0500 Heart rate 110 /min Damir Berger TRADE MANAGER Work Phone: [facility] 10-02-2024 13:59-0500 Respiratory rate 16 /min Damir Berger TRADE MANAGER Work Phone: [facility] 10-02-2024 13:59-0500 SaO2% (BldA) [Mass fraction] 96 % Damir Berger TRADE MANAGER Work Phone: [facility] 10-02-2024 13:59-0500 Systolic blood pressure 126 mm[Hg] Damir Berger TRADE MANAGER Work Phone: [facility] 05-18-2024 13:14-0400 Body height 165.1 cm Damir Berger TRADE MANAGER Work Phone: [facility] 05-18-2024 13:14-0400 Body mass index (BMI) [Ratio] 14.14 kg/m2 Damir Berger TRADE MANAGER Work Phone: [facility] 05-18-2024 13:14-0400 Body temperature 97.9 [degF] Damir Berger TRADE MANAGER Work Phone: [facility] 05-18-2024 13:14-0400 Body weight 38.56 kg Damir Berger TRADE MANAGER Work Phone: [facility] 05-18-2024 13:14-0400 Diastolic blood pressure 70 mm[Hg] Damir Berger TRADE MANAGER Work Phone: [facility] 05-18-2024 13:14-0400 Heart rate 63 /min Damir Montañozpatrick TRADE MANAGER Work Phone: [facility] 05-18-2024 13:14-0400 SaO2% (BldA) [Mass fraction] 97 % Damir Montañozpatrick TRADE MANAGER Work Phone: [facility] 05-18-2024 13:14-0400 Systolic blood pressure 120 mm[Hg] Damir Berger TRADE MANAGER Work Phone: [facility] 09-22-2022 14:11-0500 Diastolic blood pressure 71 mm[Hg] Tiago Herediaent DO Work Phone: [facility] 09-22-2022 14:11-0500 Heart rate 70 /min Christopher Vincent DO Work Phone: [facility] 09-22-2022 14:11-0500 Systolic blood pressure 113 mm[Hg] Christopher Vincent DO Work Phone: [facility] 06-25-2022 10:00-0400 Body height 152.4 cm Carol Olexa Other [employer] Other 06-25-2022 10:00-0400 Body mass index (BMI) [Ratio] 17.97 kg/m2 Carol Olexa Other [employer] Other 06-25-2022 10:00-0400 Body weight 41.73 kg Carol Olexa Other [employer] Other Encounters Encounter Date Encounter Type Care Provider Facility Start: 05-02-2025 End: 05-02-2025 Refill Shanel Slade MA [facility] Comment on above: Spastic diplegic cer ebral palsy (HCC) Start: 04-20-2025 End: 04-20-2025 Refill Susan Harden NP Work Phone: [facility] Comment on above: Vitamin D deficiency , unspecified Start: 04-19-2025 End: 04-19-2025 Patient encounter procedure Susan Harden TRADE MANAGER-C -Ultrasound Cntr for Breast Car Start: 04-19-2025 End: 04-19-2025 ambulatory [facility] Work Phone: Start: 04-10-2025 End: 04-10-2025 Bamboo flowsheet Susan Harden TRADE MANAGER Work Phone: [facility] Start: 04-10-2025 End: 04-10-2025 Bamboo flowsheet Susan Harden TRADE MANAGER Work Phone: [facility] Start: 04-10-2025 End: 04-10-2025 ambulatory SUSAN HARDEN Not Available Start: 04-10-2025 End: 04-10-2025 Office outpatient visit 25 minutes Susan Harden NP Work Phone: [facility] Comment on above: Anxiety (Primary Dx) ; Spastic diplegic cerebral palsy (HCC); Underweight; Severe protein-calorie malnutrition (HHS-HCC); Tobacco dependence; Mild episode of recurrent major depressive disorder ; Depression, unspecified depression type Start: 03-21-2025 End: 03-21-2025 Refill Osvaldo Clarke MD Work Phone: [facility] Comment on above: Spastic diplegic cer ebral palsy (HCC) Start: 03-06-2025 End: 03-06-2025 Patient encounter procedure Susan Harden TRADE MANAGER-C -MRI [facility] [place] Work Phone: Start: 03-06-2025 End: 03-06-2025 ambulatory [facility] Work Phone: Start: 02-23-2025 End: 02-23-2025 Refill Susan Aichholz TRADE MANAGER Work Phone: [facility] Comment on above: Iron deficiency Start: 02-19-2025 End: 02-19-2025 Office outpatient visit 25 minutes Susan Aiclutherz TRADE MANAGER Work Phone: [facility] Comment on above: Severe protein-calor ie malnutrition (HHS-HCC) (Primary Dx); Spastic diplegic cerebral palsy (HCC); Seizure disorder (HCC); Anxiety; Mild episode of recurrent major depressive disorder ; Tobacco dependence Start: 02-19-2025 End: 02-19-2025 ambulatory SUSAN AICHHOLZ Not Available Start: 02-19-2025 End: 02-19-2025 ambulatory DAMIR BERGER Not Available Start: 02-16-2025 End: 02-16-2025 Refill Susan Aichholz TRADE MANAGER Work Phone: [facility] Comment on above: Vitamin D deficiency Start: 02-12-2025 End: 02-12-2025 ambulatory DAMIR BERGER Not Available Start: 01-29-2025 Non-patient / Non-visit Rebecca Kimo [facility] Work Phone: Start: 01-26-2025 End: 01-26-2025 Bamboo flowsheet Osvaldo Clarke MD Work Phone: [facility] Start: 01-26-2025 End: 01-26-2025 Maikel flowsheet Osvaldo Clarke MD Work Phone: [facility] Start: 01-26-2025 End: 01-26-2025 ambulatory OSVALDO CLARKE Not Available Start: 01-26-2025 End: 01-26-2025 Office outpatient visit 25 minutes Osvaldo Clarke MD Work Phone: [facility] Comment on above: Paresthesia (Primary Dx); Cervical radiculopathy; Spastic diplegic cerebral palsy (CMS/HCC); Generalized convulsive epilepsy (CMS/HCC); Lumbar radiculopathy Start: 01-17-2025 Non-patient / Non-visit Kassidy Temple DO [facility] Work Phone: Start: 01-17-2025 End: 01-17-2025 Admission to same day surgery center Kassidy Temple DO [facility] Work Phone: Start: 01-17-2025 End: 01-17-2025 ambulatory NON STAFF Facility:[facility] Start: 01-10-2025 End: 01-10-2025 Refill Susan Donnyz TRADE MANAGER Work Phone: [facility] Comment on above: Mixed incontinence Start: 01-09-2025 End: 01-09-2025 Refill Susan Fina TRADE MANAGER Work Phone: [facility] Start: 12-25-2024 End: 12-25-2024 Bamboo flowsheet Susan Fina TRADE MANAGER Work Phone: [facility] Start: 12-25-2024 End: 12-25-2024 Bamboo flowsheet Susan Aichholz TRADE MANAGER Work Phone: [facility] Start: 12-25-2024 End: 12-25-2024 ambulatory SUSAN FINA Not Available Start: 12-25-2024 End: 12-25-2024 Office outpatient visit 25 minutes Susan Fina TRADE MANAGER Work Phone: [facility] Comment on above: Severe protein-calor ie malnutrition (CMS/HCC) (Primary Dx); Underweight; Current smoker; Tobacco dependence; Abnormal screening mammogram Start: 12-22-2024 End: 12-22-2024 Orders Only Susan Fina TRADE MANAGER Work Phone: [facility] Comment on above: Abnormal screening m ammogram (Primary Dx) Start: 12-20-2024 End: 12-20-2024 ambulatory DAMIR BERGER Not Available Start: 12-13-2024 End: 12-13-2024 Telephone encounter Jose Cruz Reyna MD Work Phone: Ophthalmology Start: 11-29-2024 End: 11-29-2024 Telephone encounter Jose Cruz Reyna MD Work Phone: Ophthalmology Start: 11-17-2024 End: 11-17-[address] [facility] Facility:[facility] Start: 11-17-2024 End: 11-17-2024 Office outpatient visit 15 minutes Kelli Fuentes MD Work Phone: Ophthalmology Comment on above: Corneal melt, left ( Primary Dx) Start: 11-09-2024 End: 11-09-2024 ambulatory SUSAN HARDEN Not Available Start: 11-09-2024 End: 11-09-2024 Bamboo flowsheet Susan Harden TRADE MANAGER Work Phone: [facility] Start: 11-09-2024 End: 11-09-2024 Bamboo flowsheet Susan Harden TRADE MANAGER Work Phone: [facility] Start: 11-09-2024 End: 11-09-2024 Patient encounter procedure Susan Harden TRADE MANAGER Work Phone: [facility] Comment on above: Encounter for subseq uent annual wellness visit (AWV) in Medicare patient (Primary Dx); CP (cerebral palsy), spastic, diplegic (CMS/HCC); Seizure disorder (CMS/HCC); Severe protein-calorie malnutrition (CMS/HCC); Underweight; Anxiety; Mild episode of recurrent major depressive disorder (HCC) (CMS/HCC); Tobacco dependence Start: 11-06-2024 End: 11-06-[address] [facility] Facility:[facility] Start: 11-06-2024 End: 11-06-2024 Office outpatient visit 15 minutes Kelli Fuentes MD Work Phone: Ophthalmology Comment on above: Corneal melt, left ( Primary Dx) Start: 11-04-2024 End: 11-04-2024 ambulatory Arline Jean RN NURSE [employer] ADMINISTRATOR Comment on above: Information Start: 11-04-2024 End: 11-04-2024 Telephone encounter Pepito Hernandez MD Work Phone: Ophthalmology Start: 11-01-2024 End: 11-01-[address] [facility] Facility:[facility] Start: 11-01-2024 End: 11-01-2024 Patient encounter procedure Maira Olson MD Work Phone: Ophthalmology Comment on above: Corneal melt, left ( Primary Dx) Start: 10-31-2024 End: 10-31-2024 Emergency department patient visit [facility] Facility:[facility] Start: 10-27-2024 End: 10-27-2024 ambulatory OSVALDO CLARKE Not Available Start: 10-27-2024 End: 10-27-2024 Office outpatient visit 25 minutes Osvaldo Clarke MD Work Phone: [facility] Comment on above: Spastic diplegic cer ebral palsy (CMS/HCC) (Primary Dx); Generalized convulsive epilepsy (CMS/HCC) Start: 10-02-2024 End: 10-02-2024 Bamboo flowsheet Damir Berger TRADE MANAGER Work Phone: [facility] Start: 10-02-2024 End: 10-02-2024 Bamboo flowsheet Damir Berger TRADE MANAGER Work Phone: [facility] Start: 10-02-2024 End: 10-02-2024 Office outpatient visit 15 minutes Damir Berger TRADE MANAGER Work Phone: [facility] Comment on [...] 09-27-2024 End: 09-27-2024 Orders Only Damir Berger TRADE MANAGER Work Phone: [facility] Comment on above: Non-seasonal allergi c rhinitis, unspecified trigger; Spastic diplegic cerebral palsy (CMS/HCC); Seasonal allergic rhinitis due to other allergic trigger; Lumbar paraspinal muscle spasm; Mixed incontinence; Depression, unspecified depression type (CMS/HCC) Start: 09-13-2024 End: 09-13-2024 Telephone encounter Osvaldo Clarke MD Work Phone: [facility] Start: 08-10-2024 End: 08-10-2024 Refill Damir Berger TRADE MANAGER Work Phone: [facility] Comment on above: Lumbar paraspinal mu scle spasm Start: 07-14-2024 End: 07-15-2024 Refill Damir Berger TRADE MANAGER Work Phone: [facility] Comment on above: Non-seasonal allergi c rhinitis, unspecified trigger Start: 06-12-2024 End: 06-13-2024 Refill Damir Berger TRADE MANAGER Work Phone: [facility] Comment on above: Lumbar paraspinal mu scle spasm Start: 06-08-2024 End: 06-09-2024 Refill Damir Berger TRADE MANAGER Work Phone: [facility] Comment on above: Non-seasonal allergi c rhinitis, unspecified trigger Start: 05-18-2024 End: 05-18-2024 Bamboo flowsheet Damir Berger TRADE MANAGER Work Phone: [facility] Start: 05-18-2024 End: 05-18-2024 Bamboo flowsheet Damir Berger TRADE MANAGER Work Phone: [facility] Start: 05-18-2024 End: 05-18-2024 Office outpatient visit 10 minutes Damir Glasspatrick TRADE MANAGER Work Phone: [facility] Comment on above: Non-recurrent acute serous otitis media of both ears (Primary Dx); Impacted cerumen of right ear Start: 05-18-2024 End: 05-18-2024 ambulatory DAMIR BERGER Not Available Start: 05-10-2024 End: 05-10-2024 Refill Damir Berger TRADE MANAGER Work Phone: [facility] Comment on above: Mixed incontinence Start: 05-05-2024 End: 05-05-2024 ambulatory DAMIR BERGER Not Available Start: 04-25-2024 End: 04-25-2024 Refill Eric Leslie MA [facility] Comment on above: Seasonal allergic rh initis due to other allergic trigger (Primary Dx) Start: 04-22-2024 End: 04-22-2024 Refill Damir Berger TRADE MANAGER Work Phone: [facility] Comment on above: Impacted cerumen of right ear (Primary Dx) Start: 04-10-2024 Patient encounter status Johnna any Berger TRADE MANAGER Work Phone: [facility] Start: 10-06-2023 Refill Shaikh Komal REESE Work Phone: [facility] Comment on above: Depression, unspecif ied depression type (CMS/HCC) Start: 05-31-2023 Preprocedural examin ation done Shaikh Komal REESE Work Phone: [facility] Start: 02-03-2023 Refill Tiago Guadalupe DO Work Phone: Neurology Comment on above: Refill Request Start: 11-03-2022 End: 11-03-2022 ambulatory Carol Bell Other [employer] Other Start: 11-03-2022 Telephone encounter Carol Bell [facility] Start: 09-22-2022 End: 09-22-2022 Patient encounter procedure Tiago Guadalupe DO Work Phone: Neurology Comment on above: Tremor (Primary Dx); Arthralgia of both lower legs; Convulsions, unspecified convulsion type (HCC); Seizure (HCC) Start: 06-30-2022 End: 08-21-2022 ambulatory CAROL BELL Facility:[facility] Start: 06-25-2022 End: 06-25-2022 ambulatory Carol Bell Other [employer] Other Start: 06-25-2022 Office outpatient ne w 30 minutes Carol Bell [facility] Start: 06-04-2022 End: 06-05-2022 ambulatory TORRES H FAWWAD Facility:[facility] Start: 05-25-2022 End: 05-26-2022 ambulatory TORRES H FAWWAD Facility:[facility] Start: 05-08-2022 End: 05-09-2022 ambulatory TORRES H FAWWAD Facility:[facility] Start: 09-24-2021 End: 09-24-2021 ambulatory STEPHANIE ALCARAZ Facility:[facility] Start: 04-17-2020 End: 11-09-2024 Preprocedural examination done Tiago Guadalupe DO Work Phone: [facility] Work Phone: Procedures Date Procedure Procedure Detail Performing Clinician Start: 04-19-2025 Ultrasonography of right breast Start: 01-24-2025 Colonoscopy Osvaldo Clarke MD Work Phone: Start: 01-17-2025 Esophagogastroduodenoscopy Kassidy Temple DO Work Phone: Start: 12-20-2024 Mammography Susan Harden TRADE MANAGER Work Phone: Start: 05-05-2024 Mammography Damir Berger TRADE MANAGER Work Phone: Start: 04-23-2021 Mammography Carlozcaitlyn Collins DO Work Phone: Start: 09-13-2020 Lipid 1996 panel - Serum or Plasma Niranjan Olson MD Work Phone: Plan of Treatment Date Care Activity Detail Author Start: 01-24-2030 Screening for malign ant neoplasm of colon [facility] Start: 11-01-2027 Diabetes Screening Diabetes Screenin g [facility] Start: 04-18-2027 Screening for malign ant neoplasm of colon [facility] Start: 12-20-2025 Screening for malign ant neoplasm of breast Mammogram [facility] Start: 11-09-2025 Medicare Annual Wellness (AWV) Medicare Annual Wellness (AWV) [facility] Start: 09-13-2025 Lipid panel Lipid Screening [facility] Start: 07-30-2025 End: 07-30-2025 Patient encounter procedure [facility] Start: 05-22-2025 End: 05-22-2025 Patient encounter procedure 05/22/2025 2:00 PM EDT Office Visit [facility] [address] [place] [address] Susan Harden, TRADE MANAGER [address] [place] [phone] [facility] Start: 05-05-2025 Screening for malign ant neoplasm of breast [facility] Start: 04-30-2025 Influenza vaccination [facility] Start: 04-09-2025 End: 04-09-2025 Patient encounter procedure 04/09/2025 1:00 PM EDT Office Visit [facility] [address] [place] [address] Susan Harden, TRADE MANAGER [address] [place] [address] [facility] Start: 02-19-2025 End: 02-19-2025 Patient encounter procedure [facility] Start: 02-12-2025 End: 02-12-2025 Patient encounter procedure 02/12/2025 1:00 PM EDT Procedure Visit [facility] [address] [place] [id number] [facility] Start: 01-26-2025 End: 01-26-2026 EMG 2 Extremities EMG 2 Extremities Neurology Routine Paresthesia Expected: 01/26/2025 (Approximate), Expires: 01/26/2026 [facility] Work Phone: Comment on above: Expected: 01/26/2025 (Approximate), Expires: 01/26/2026 Start: 01-26-2025 End: 01-26-2025 Patient encounter procedure 01/26/2025 10:30 AM EDT Office Visit [facility] [address] [place] [address] Osvaldo Clarke MD [address] [place] [address] [place] [id number] [facility] Start: 01-17-2025 [facility] Start: 01-03-2025 End: 01-03-2025 [facility] Start: 12-25-2024 End: 12-25-2024 Patient encounter procedure 12/25/2024 11:00 AM EDT Office Visit [facility] [address] [place] [address] Susan Harden NP [address] [place] [address] [facility] Start: 12-22-2024 End: 02-21-2026 MR Breast - bilateral WO and W contrast IV Bilateral breast MR with and without contrast Imaging Routine Abnormal screening mammogram Expected: 12/22/2024 (Approximate), Expires: 02/21/2026 [facility] Work Phone: Comment on above: Expected: 12/22/2024 (Approximate), Expires: 02/21/2026 Start: 11-27-2024 Influenza vaccination Influenza Vacc ine (#1) [facility] Comment on above: Postponed from 04/30 (Patient Refused) Start: 11-17-2024 End: 11-17-2024 Patient encounter procedure 11/17/2024 1:00 PM EDT Office Visit [facility] Ophthalmology [address] [address] [place] [address] [place] [address] [facility] Comment on above: [facility] Start: 11-09-2024 End: 11-09-2024 Patient encounter procedure 11/09/2024 4:00 PM EDT Office Visit [facility] [address] [place] [address] Susan Harden NP [address] [place] [address] CP (cerebral palsy), spastic, diplegic (CMS/HCC) (Primary Dx); Seizure disorder (CMS/HCC); Severe protein-calorie malnutrition (CMS/HCC); Underweight; Anxiety; Mild episode of recurrent major depressive disorder (HCC) (CMS/HCC); Tobacco dependence [facility] Comment on above: CP (cerebral palsy), spastic, diplegic (CMS/HCC) (Primary Dx); Seizure disorder (CMS/HCC); Severe protein-calorie malnutrition (CMS/HCC); Underweight; Anxiety; Mild episode of recurrent major depressive disorder (HCC) (CMS/HCC); Tobacco dependence Start: 11-09-2024 End: 11-09-2025 25-hydroxyvitamin D3 [Mass/volume] in Serum or Plasma Vitamin D 25 hydroxy Lab Routine Severe protein-calorie malnutrition (CMS/HCC) Expected: 11/09/2024 (Approximate), Expires: 11/09/2025 [facility] Comment on above: Expected: 11/09/2024 (Approximate), Expires: 11/09/2025 Start: 11-09-2024 End: 11-09-2025 Cobalamin (Vitamin B12) [Mass/volume] in Serum or Plasma Vitamin B12 Lab Routine Severe protein-calorie malnutrition (CMS/HCC) Expected: 11/09/2024 (Approximate), Expires: 11/09/2025 [facility] Comment on above: Expected: 11/09/2024 (Approximate), Expires: 11/09/2025 Start: 11-09-2024 End: 11-09-2025 Comprehensive metabolic 2000 panel - Serum or Plasma Comprehensive metabolic panel Lab Routine Seizure disorder (CMS/HCC) Severe protein-calorie malnutrition (CMS/HCC) Anxiety Expected: 11/09/2024 (Approximate), Expires: 11/09/2025 [facility] Work Phone: Comment on above: Expected: 11/09/2024 (Approximate), Expires: 11/09/2025 Start: 11-09-2024 End: 11-09-2025 Ferritin [Mass/volume] in Serum or Plasma Ferritin Lab Routine Severe protein-calorie malnutrition (CMS/HCC) Expected: 11/09/2024 (Approximate), Expires: 11/09/2025 [facility] Comment on above: Expected: 11/09/2024 (Approximate), Expires: 11/09/2025 Start: 11-09-2024 End: 11-09-2025 Folate [Mass/volume] in Serum or Plasma Folate Lab Routine Severe protein-calorie malnutrition (CMS/HCC) Expected: 11/09/2024 (Approximate), Expires: 11/09/2025 [facility] Comment on above: Expected: 11/09/2024 (Approximate), Expires: 11/09/2025 Start: 11-09-2024 End: 11-09-2025 Iron + transferrin + TIBC Iron + transferrin + TIBC Lab Routine Severe protein-calorie malnutrition (CMS/HCC) Expected: 11/09/2024 (Approximate), Expires: 11/09/2025 [facility] Comment on above: Expected: 11/09/2024 (Approximate), Expires: 11/09/2025 Start: 11-09-2024 End: 11-09-2025 Magnesium [Mass/volume] in Serum or Plasma Magnesium Lab Routine Severe protein-calorie malnutrition (CMS/HCC) Expected: 11/09/2024 (Approximate), Expires: 11/09/2025 [facility] Comment on above: Expected: 11/09/2024 (Approximate), Expires: 11/09/2025 Start: 11-09-2024 End: 11-09-2025 Prealbumin [Mass/volume] in Serum or Plasma Prealbumin Lab Routine Severe protein-calorie malnutrition (CMS/HCC) Expected: 11/09/2024 (Approximate), Expires: 11/09/2025 [facility] Comment on above: Expected: 11/09/2024 (Approximate), Expires: 11/09/2025 Start: 11-09-2024 End: 11-09-2025 Thyrotropin [Units/volume] in Serum or Plasma TSH Lab Routine Anxiety Expected: 11/09/2024 (Approximate), Expires: 11/09/2025 [facility] Comment on above: Expected: 11/09/2024 (Approximate), Expires: 11/09/2025 Start: 11-09-2024 End: 11-09-2025 Thyroxine (T4) free [Mass/volume] in Serum or Plasma T4, free Lab Routine Anxiety Expected: 11/09/2024 (Approximate), Expires: 11/09/2025 [facility] Comment on above: Expected: 11/09/2024 (Approximate), Expires: 11/09/2025 Start: 11-09-2024 End: 11-09-2025 Urinalysis complete panel - Urine Urinalysis with reflex microscopic (clean catch) Lab Routine Tobacco dependence Expected: 11/09/2024 (Approximate), Expires: 11/09/2025 [facility] Comment on above: Expected: 11/09/2024 (Approximate), Expires: 11/09/2025 Start: 11-06-2024 End: 11-06-2024 Patient encounter procedure 11/06/2024 3:00 PM EDT Office Visit [facility] Ophthalmology [address] [address] [place], [facility] Opht [address] [place] [address] Hi could we please schedule this patient [...] Office Visit [facility] [address] [place] [address] Osvaldo Clarke MD [address] [facility] [address] [place] [address] [place] [address] [id number] [facility] Start: 10-02-2024 End: 10-02-2024 [facility] on above: Arrived Start: 07-28-2024 Screening for malign ant neoplasm of cervix Cervical Cancer Screening [facility] Comment on above: Postponed from 03/28 (Patient Refused) Start: 06-05-2024 End: 06-05-2024 Patient encounter procedure 06/05/2024 10:30 AM EDT Office Visit [facility] [address] [place] [id number] Damir Berger, MARKUS [address] [place] [address] [facility] Start: 05-18-2024 End: 05-18-2024 [facility] Comment on above: Arrived Start: 05-11-2024 End: 05-11-2024 Patient encounter procedure 05/11/2024 1:30 PM EDT Office Visit [facility] [address] [place] [address] Damir Berger NP [address] [place] [address] [facility] Start: 04-30-2024 Covid-19 Vaccine ( season) Covid-19 Vaccine ( season) [facility] Start: 04-30-2024 Influenza vaccination Influenza Vacc ine (#1) [facility] Start: 2024 Screening for malign ant neoplasm of colon [facility] Start: 04-30-2023 Influenza vaccination C [facility] Start: 04-15-2023 Urine microalbumin profile [facility] Start: 05-20-2022 Medicare Annual Wellness (AWV) Medicare Annual Wellness (AWV) [facility] Start: 04-30-2022 Influenza vaccination INFLUENZA (#1) [facility] Start: 04-23-2022 Mammography MAMMOGRAM [facility] Start: 04-23-2022 Screening for malign ant neoplasm of breast Mammogram [facility] Start: 2009 HPV TESTING HPV TESTING [facility] Start: 2009 Screening for malign ant neoplasm of cervix [facility] Start: 2000 PAP TESTING PAP TESTING [facility] Start: 2000 Screening for malign ant neoplasm of cervix [facility] Start: 1998 Hepatitis B Vaccine (1 of 3 - 19+ 3-dose series) Hepatitis B Vaccine (1 of 3 - 19+ 3-dose series) [facility] Start: 1998 Pneumococcal vaccination Pneumococcal Vaccine (1 of 2 - PCV) [facility] Start: 1997 HEPATITIS C SCREENING HEPATITIS C [facility] Start: 1997 Hepatitis C screening Hepatitis C [facility] Start: 1997 HIV SCREENING HIV SCREENING [facility] Start: 1997 HIV screening HIV Screening [facility] Start: 1985 PNEUMOCOCCAL (1 - PCV) PNEUMOCOCCAL (1 - PCV) [facility] Start: 1979 COVID-19 VACCINE (#1) COVID-19 VACCI NE (#1) [facility] Start: 1979 HEPATITIS B (1 of 3 - 3-dose series) HEPATITIS B (1 of 3 - 3-dose series) [facility] Start: 1979 Screening for malign ant neoplasm of colon [facility] End: 09-22-2023 EEG MONITORING ADULT EMU (24 HOUR WITH VIDEO) EEG MONITORING ADULT EMU (24 HOUR WITH VIDEO) NEUROLOGY Routine Seizure (HCC) 1 Occurrences starting 09/22/2022 until 09/22/2023 [facility] Work Phone: Comment on above: 1 Occurrences starti ng 09/22/2022 until 09/22/2023 OCT ANTERIOR SEGMENT CIRRUS OS (LEFT EYE) OCT ANTERIOR SEGMENT CIRRUS OS (LEFT EYE) [facility] Imaging Routine Corneal melt, left 11/01/2024 10:15 AM EST [facility] Work Phone: Patient Education Colon polyps F [place] Hemorrhoids Discharge Instructions Know your Meds [facility] Work Phone: TARSORRHAPHY, TEMPOR CLEO (DILLARD SUTURE) TARSORRHAPHY, TEMPORARY (DILLARD SUTURE) Ophthalmology Routine Corneal melt, left 11/01/2024 10:34 AM EST [facility] Immunizations Immunization Date Immunization Notes Care Provider Janice carvalho 04-15-2013 tetanus toxoid, redu camila diphtheria toxoid, and acellular pertussis vaccine, adsorbed Tiago Guadalupe DO Work Phone: [facility] Payers Date Payer Category Payer Self-pay 2025 Medicare [id number] 2024 Medicare [id number] 2024 Medicare [id number] 2017 Medicaid [id number] 1979 Unknown [id number] 2.16. [id number] 1979 Unknown [id number] 2.16. 840.1.626472.3.579.2.732 1979 Unknown [id number] 2.16.84 0.1.785417.3.579.2.593 1979 Unknown [id number] 2.16.84 0.1.668027.3.579.2.593 1979 Unknown [id number] 2.16.84 0.1.266840.3.579.2.593 1979 Unknown [id number] 2.16.84 0.1.100715.3.579.2.593 1979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 complaint of Weight Check HPI: Here for a weight check: last seen 2 months ago, has been drinking a protein drink daily Is more of a snacker through the day, and eats a meal at night No changes in bowel habits, no abd pain Has lost weight since last visit SUBJECTIVE: MEDICATIONS: Current Outpatient Medications Medication Instructions acyclovir (ZOVIRAX) 400 mg, 4 times daily baclofen (LIORESAL) 10 mg, Oral, 3 times daily erythromycin (Romycin) 5 MG/GM ophthalmic ointment 1 Application, Nightly fluticasone (Flonase) 50 MCG/ACT nasal spray 2 sprays, Each Nostril, Daily, Shake gently. Before first use, prime pump. After use, clean tip and replace cap. gabapentin (NEURONTIN) 400 mg, Oral, 3 times daily hydrOXYzine HCl (ATARAX) 25 mg, Oral, Every 12 hours PRN loratadine (CLARITIN) 10 mg, Oral, Daily oxybutynin XL (DITROPAN-XL) 10 mg, Oral, Daily [...] congestion, ear pain and sore throat. Eyes: Negative for pain, discharge, redness and visual disturbance. Respiratory: Negative for cough, shortness of breath and wheezing. Cardiovascular: Negative for chest pain, palpitations and leg swelling. Gastrointestinal: Negative for abdominal pain, blood in stool, constipation, diarrhea, nausea and vomiting. Genitourinary: Negative for difficulty urinating, dysuria and frequency. Musculoskeletal: Negative for arthralgias, back pain, joint swelling and myalgias. Skin: Negative for rash and wound. Neurological: Positive for weakness. Negative for dizziness, tremors, seizures, syncope and headaches. Psychiatric/Behavioral: Negative for behavioral problems, self-injury and suicidal ideas. The patient is not [...] bones in feet OTHER SURGICAL HISTORY Bilateral 1985 Punctum occlusion bilaterally family history includes Liver cancer in her paternal grandfather. OBJECTIVE: Visit Vitals BP 98/60 (BP Location: Left arm, Patient Position: Sitting, BP Cuff Size: Adult) Pulse 85 Temp 98.6 F (Temporal) Resp 20 Wt 79 lb 6.4 oz SpO2 98% BMI 14.52 kg/m OB Status No Periods Smoking Status Every Day BSA 1.25 m Physical Exam Vitals and nursing note reviewed. Constitutional: General: She is not in acute distress. Appearance: Normal appearance. HENT: Head: Normocephalic and atraumatic. Right Ear: External ear normal. Left Ear: External ear normal. Nose: Nose normal. Mouth/Throat: Mouth: Mucous membranes are moist. Eyes: Extraocular Movements: Extraocular movements intact. Conjunctiva/sclera: Conjunctivae normal. Cardiovascular: Rate and Rhythm: Normal rate and [...] edema. Left lower leg: No edema. Comments: spasticity Lymphadenopathy: Cervical: No cervical adenopathy. Skin: General: Skin is warm and dry. Capillary Refill: Capillary refill takes 2 to 3 seconds. Findings: No rash. Neurological: General: No focal deficit present. Mental Status: She is alert and oriented to person, place, and time. Psychiatric: Mood and Affect: Mood normal. Behavior: Behavior normal. Thought Content: Thought content normal. Judgment: Judgment normal. ASSESSMENT AND PLAN: No follow-ups on file. Problem List Items Addressed This Visit RESOLVED: Current smoker The patient has been advised of the risks of continued smoking: stroke, GA, all forms of cancer, lung disease, and . Options for quitting smoking include: cold turkey, hypnosis, acupuncture, nicotine replacement meds (gum, lozenges, and patches), Buproprion, and Varenicline. At this time pt is encouraged to evaluate their goals for wanting to quit smoking, and reach out to provider when ready to start this process Tobacco dependence The patient has been advised of the risks of continued smoking: stroke, GA, all forms of cancer, lung disease, and . Options for quitting smoking include: cold turkey, hypnosis, acupuncture, nicotine replacement meds (gum, lozenges, and patches), Buproprion, and Varenicline. At this time pt is encouraged to evaluate their goals for wanting to quit smoking, and reach out to provider when ready to start this process Underweight Severe protein-calorie malnutrition (CMS/HCC) - Primary Abnormal screening mammogram Needs MRI bilat breasts w contrast Associated Problem(s): Abnormal screening mammogram Needs MRI bilat breasts w contrast Associated Problem(s): Tobacco dependence The patient has been advised of the risks of continued smoking: stroke, GA, all forms of cancer, lung disease, and . Options for quitting smoking include: cold turkey, hypnosis, acupuncture, nicotine replacement meds (gum, lozenges, and patches), Buproprion, and Varenicline. At this time pt is encouraged to evaluate their goals for wanting to quit smoking, and reach out to provider when ready to start this process Associated Problem(s): Current smoker (Resolved 12/25/2024) The patient has been advised of the risks of continued smoking: stroke, GA, all forms of cancer, lung disease, and . Options for quitting smoking include: cold turkey, hypnosis, acupuncture, nicotine replacement meds (gum, lozenges, and patches), Buproprion, and Varenicline. At this time pt is encouraged to evaluate their goals for wanting to quit smoking, and reach out to provider when ready to start this process documented in this encounter [facility] 12-25-2024 Instructions Susan Harden NP - 12/25/2024 11:00 AM EDT Weight loss: refer to in [place],: if no call from them in 10 days, call here At this point continue current supplement drinks Ordering MRI both breasts at [facility] in [place] documented in this encounter [facility] 12-13-2024 Telephone encounter Note ----- Message from Kelli Fuentes MD sent at 11/17/2024 2:17 PM EDT ----- Hi Elan Sorry to keep bothering you with patients. This is a sweet lady (hx of cerebral palsy) comes with her mother to visits who had a melt of the cornea OS, neurotrophic OU since younger. 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 Given her improvement we think she would benefit greatly from a permanent tarso of the same size as her temporary. I discussed this in detail with her and mom and they are in agreement. She handled the temporary suture in the office without any issues and I think she would be find in the office. I wasn't sure if best to reach out to you directly or message the whole plastics team. Was hoping we could do this in the next few weeks. She is going to follow up with her remote sensing specialist in [place] (Dr Gonzalez) after the procedure. Let me know if any issues Thank you so much ! [facility] Work Phone: 12-13-2024 Miscellaneous Notes ----- Message from Kelli Fuentes MD sent at 11/17/2024 2:17 PM EDT ----- Asher Ansari Sorry to keep bothering you with patients. This is a sweet lady (hx of cerebral palsy) comes with her mother to visits who had a melt of the cornea OS, neurotrophic OU since younger. 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 Given her improvement we think she would benefit greatly from a permanent tarso of the same size as her temporary. I discussed this in detail with her and mom and they are in agreement. She handled the temporary suture in the office without any issues and I think she would be find in the office. I wasn't sure if best to reach out to you directly or message the whole plastics team. Was hoping we could do this in the next few weeks. She is going to follow up with her remote sensing specialist in [place] (Dr Gonzalez) after the procedure. Let me know if any issues Thank you so much ! documented in this encounter [facility] 11-29-2024 Telephone encounter Note Pre-Procedure Note Patient referred by wili Whiting, for consideration of permanent lateral tarsorrhaphy, 30%. Voicemail messages left. Patient last seen by Dr. Fuentes 11/17/24, resolution of thinning and epithelialization of descemetocele with temporary tarsorrhaphy. Discussed plan to convert to permanent tarsorrhaphy. Asessment: Sterile Melt, left eye - Scenario described above. - Discussed procedure in detail with patient. No dressing will be placed, antibiotic ointment will be applied to the incision 4x daily. Sutures will be dissolvable. Risks of procedure include temporary discomfort or numbness in the area of the surgery. There will be a scar anywhere an incision is made, though Dr. Reyna will take efforts to minimize this. Less likely risks include hypertrophic scar, bleeding, hematoma, infection, inflammation, damage to nearby structures (nerve or muscle) resulting in loss of function, poor cosmesis. Patient understands and would like to proceed. Plan: Permanent lateral tarsorrhaphy 30% left eye Will continue to attempt to reach patient via phone to schedule [facility] Work Phone: 11-29-2024 Miscellaneous Notes Pre-Procedure Note Patient referred by wili Whiting, for consideration of permanent lateral tarsorrhaphy, 30%. Voicemail messages left. Patient last seen by Dr. Fuentes 11/17/24, resolution of thinning and epithelialization of descemetocele with temporary tarsorrhaphy. Discussed plan to convert to permanent tarsorrhaphy. Asessment: Sterile Melt, left eye - Scenario described above. - Discussed procedure in detail with patient. No dressing will be placed, antibiotic ointment will be applied to the incision 4x daily. Sutures will be dissolvable. Risks of procedure include temporary discomfort or numbness in the area of the surgery. There will be a scar anywhere an incision is made, though Dr. Reyna will take efforts to minimize this. Less likely risks include hypertrophic scar, bleeding, hematoma, infection, inflammation, damage to nearby structures (nerve or muscle) resulting in loss of function, poor cosmesis. Patient understands and would like to proceed. Plan: Permanent lateral tarsorrhaphy 30% left eye Will continue to attempt to reach patient via phone to schedule documented in this encounter [facility] 11-17-2024 Instructions Kelli Fuentes MD - 11/17/2024 1:46 PM EDT RIGHT EYE: -Start artificial tear drops at least 4x a day -No visine LEFT EYE: -STOP MOXIFLOXACIN drop -Erythromycin ointment at night time -See eyelid doctors for permanent stich left eye Pills: Acyclovir - 4x a day until tomorrow Then decrease to 2x a day RECCOMMENDED ARTIFICIAL TEARS Preservative-Free Artificial Tears (in single-dose droperettes): Systane (preservative-free vials) Systane Ultra Preservative-Free Refresh Optive Sensitive Refresh Optive Advanced Preservative-Free Refresh Plus TheraTears Preservative-Free Soothe Preservative-Free Tears Naturale Free TheraTears Liquid Gel (thicker) Refresh Celluvisc (thicker) Preserved Artificial Tears (in bottles): Refresh Optive Advanced Refresh Optive Refresh Tears Systane Ultra Systane Balance Tears Naturale II Tears Naturale Forte Soothe Hydration Genteal Refresh Liquigel (thicker) Ointments and gels (in tubes): Genteal Gel Severe Dry Eye Relief Genteal PM Ointment Refresh PM Ointment Systane Nightime Refresh Lacrilube documented in this encounter [facility] 11-17-2024 Note HNO ID: [id number] Author: KELLI FUENTES MD Service: ? Author Type: Fellow Type: Progress Notes Filed: 11/17/2024 14:20 Note Text: Initial exam: (H16.002) Corneal melt, [...] was seen by home eye doctor in [place] (Dr. Gonzalez) 1 month ago and things were stable -Seen today by Dr. 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 Appearance appears to be chronic in nature given degree of KNV -Much improved today with apparent resolution of thinning OS, descemetocele has epithelialized Plan: - Continue Acyclovir 400mg 4x a day for 3 more days then decrease to 400mg 2x a day -Can stop Moxi QID -Continue erythromycin ointment QHS OS -Start Preservative free tears QID OU -Erythro ointment QHS OS -Given neurotrophic and improvement with temporary tarsorraphy would recommend permanent lateral tarsorraphy around 30% to match current temporary tarsorraphy Will send letter to Dr Gonzalez and schedule with him in 3-4 weeks as patients would prefer to follow up there closer to home, given improvement this is reasonable Will reach out to oculoplastics team Seen and discussed with Dr Vance Fuentes MD Fellow, Cornea, External Disease, and Refractive Surgery [facility] [place], [facility] 11-17-2024 History of Present illness Narrative Initial exam: [...] was seen by home eye doctor in [place] (Dr. Gonzalez) 1 month ago and things were stable -Seen today by Dr. 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 Appearance appears to be chronic in nature given degree of KNV -Much improved today with apparent resolution of thinning OS, descemetocele has epithelialized Plan: - Continue Acyclovir 400mg 4x a day for 3 more days then decrease to 400mg 2x a day -Can stop Moxi QID -Continue erythromycin ointment QHS OS -Start Preservative free tears QID OU -Erythro ointment QHS OS -Given neurotrophic and improvement with temporary tarsorraphy would recommend permanent lateral tarsorraphy around 30% to match current temporary tarsorraphy Will send letter to Dr Gonzalez and schedule with him in 3-4 weeks as patients would prefer to follow up there closer to home, given improvement this is reasonable Will reach out to oculoplastics team Seen and discussed with Dr Vance Fuentes MD Fellow, Cornea, External Disease, and Refractive Surgery [facility] [place], [facility] documented in this encounter [facility] 11-09-2024 History of Present illness Narrative Associated [...] the original note were not included. Michelle Betancourt is a 44 y.o. female presents with [...] bones in feet OTHER SURGICAL HISTORY Bilateral 1985 Punctum occlusion bilaterally family history includes Liver [...] care of neurology documented in this encounter [facility] 11-09-2024 Instructions Susan Harden NP - 11/09/2024 4:00 PM EDT High protein snacks for breakfast and lunch Drink supplement twice a day Follow up in 6 weeks documented in this encounter [facility] 11-06-2024 Note HNO ID: [id number] Author: KELLI FUENTES MD Service: ? Author Type: Fellow Type: [...] was seen by home eye doctor in [place] (Dr. Gonzalez) 1 month ago and things were stable -Seen today by Dr. Gonzalez who noted central descemetocele and sent patient to [facility] main ED for further management -On exam [...] IOP (icare only) and page me Kelli Fuentes MD Fellow, Cornea, External Disease, and Refractive Surgery [facility] [place], [facility] 11-06-2024 History of Present illness Narrative [...] was seen by home eye doctor in [place] (Dr. Gonzalez) 1 month ago and things were stable -Seen today by Dr. Gonzalez who noted central descemetocele and sent patient to [facility] main ED for further management -On exam [...] IOP (icare only) and page me Kelli Fuentes MD Fellow, Cornea, External Disease, and Refractive Surgery [facility] [place], [facility] documented in this encounter [facility] 11-04-2024 Telephone encounter Note Received page that [...] emergency room. Pepito Hernandez MD Ophthalmology Resident [facility] 11-04-2024 Miscellaneous Notes Received page that patient [...] MD Ophthalmology Resident documented in this encounter [facility] 11-04-2024 Telephone encounter Note Mother calling with request for possible side effects from new medication Mother denies any new or worsening symptoms of which a provider is not aware: No. Conferenced to Johanne LI to page general road production manager resident for [facility]. [facility] 11-04-2024 Miscellaneous Notes Mother calling with request for possible side effects from new medication Mother denies any new or worsening symptoms of which a provider is not aware: No. Conferenced to Johanne LI to page general road production manager resident for [facility]. documented in this encounter [facility] 11-01-2024 Note HNO ID: [id number] Author: MAIRA THOMAS MD Service: ? Author [...] was seen by home eye doctor in [place] (Dr. Gonzalez) 1 month ago and things were stable -Seen today by Dr. Gonzalez who noted central descemetocele and sent patient to [facility] main ED for further management -On exam [...] proparacaine 0.5% given OU. Lidocaine 1% with [id number] epinephrine placed in the upper and lower [...] Dr. Woodard [facility] 11-01-2024 History of Present illness Narrative Initial [...] was seen by home eye doctor in [place] (Dr. Gonzalez) 1 month ago and things were stable -Seen today by Dr. Gonzalez who noted central descemetocele and sent patient to [facility] main ED for further management -On exam [...] proparacaine 0.5% given OU. Lidocaine 1% with [id number] epinephrine placed in the upper and lower [...] with Dr. Woodard documented in this encounter [facility] 10-27-2024 History of Present illness Narrative Images from the original note were not included. CHIEF COMPLAINT REASON FOR VISIT: seizures HPI: Michelle Betancourt is a 44 y.o. female who presents [...] bones in feet OTHER SURGICAL HISTORY Bilateral 1985 Punctum occlusion bilaterally Social History Tobacco Use [...] reflexes: Nikita's absent. Ankle clonus absent. Coordination Dyjqzr-xl-[id number], rapid alternating movements and cvin-ha-ecrf normal bilaterally without dysmetria. Gait Normal casual, toe, heel and tandem gait. Romberg is absent. PROCEDURE: NONE ASSESSMENT AND PLAN: Michelle Betancourt is a 44 y.o. female who presents [...] Osvaldo Clarke MD documented in this encounter [facility] 10-02-2024 History of Present illness Narrative Associated [...] were not included. Subjective Patient ID: Michelle Betancourt is a 44 y.o. female who presents [...] 24 hr tablet documented in this encounter [facility] 10-02-2024 Instructions Damir Berger NP - 10/02/2024 2:00 PM EST Try taking hydroxyzine 25mg up to twice daily as needed for anxiety. If you feel too drowsy or groggy after taking it, try splitting tablet in half and taking 1/2 instead. documented in this encounter [facility] 09-13-2024 Telephone encounter Note Patient called in to schedule follow-up, it's set for 10.27.2024. She would like to know if in the meantime her gabapentin rx can be renewed and sent in please. If unable to do so, reach out to patient and notify her. If able to resubmit, reach out and confirm with patient. [facility] 09-13-2024 Miscellaneous Notes Patient called in to schedule follow-up, it's set for 10.27.2024. She would like to know if in the meantime her gabapentin rx can be renewed and sent in please. If unable to do so, reach out to patient and notify her. If able to resubmit, reach out and confirm with patient. documented in this encounter [facility] 05-20-2024 History of Present illness Narrative Associated [...] were not included. Subjective Patient ID: Michelle Betancourt is a 44 y.o. female who presents [...] 875-125 MG tablet documented in this encounter [facility] 04-25-2024 Telephone encounter Note PT INFORMED AND VOICED UNDERSTANDING. -SCR [facility] 04-25-2024 Miscellaneous Notes PT INFORMED AND VOICED UNDERSTANDING. -SCR ----- Message from Damir Berger sent at 04/25/2024 12:32 PM EDT ----- Please call pt with results. Thanks so much! -BF ----- Message ----- From: [email or web address] Results In Sent: 04/25/2024 12:37 AM EDT To: Damir Berger NP documented in this encounter [facility] 04-25-2024 Telephone encounter Note ----- Message from Damir Berger sent at 04/25/2024 12:32 PM EDT ----- Please call pt with results. Thanks so much! -BF ----- Message ----- From: [email or web address] Results In Sent: 04/25/2024 12:37 AM EDT To: Damir Berger NP [facility] 02-24-2023 Miscellaneous Notes Patient has been identified [...] please. Stacy Lyles documented in this encounter [facility] 09-22-2022 History of Present illness Narrative [facility] [place] New Patient Consultation September 22, 2022 HPI: Ms. Betancourt, who is accompanied today by her mother [...] eye four times daily. Start after surgery. [id number] D3 500 mg(1,250mg) -200 unit per tablet [...] Tiago Guadalupe D.O. documented in this encounter [facility] 06-25-2022 Evaluation note Encounter Date Diagnosis Assessment [...] pain of right shoulder (ICD-10 - M25.511) [place] [facility] Other 09-09-2022 NotePROCEDURE: XR SHOULDER RT 2V [...] Stable surgical/posttraumatic changes. Electronically authenticated by: EVAN MORENO Date: 2022-05-08 18:42[facility]01-16-2021 History of Past illness Narrative* Problem Noted Date Resolved Date Tobacco dependence 09/14/2020 12/11/2020 documented as of this encounter (statuses as of 09/30/2022) [facility]01-16-2021 History of Past illness Narrative* Problem Noted Date Resolved Date Tobacco dependence 09/14/2020 12/11/2020 documented as of this encounter (statuses as of 02/25/2023) [facility] Diagnosis Tremor- Primary Abnormal involuntary movements Arthralgia of both lower legs Convulsions, unspecified convulsion type (HCC) [facility] noteNo InformationNortEndless [facility] [employer] Other Evaluation note* Diagnosis Depression, unspecified depression type (CMS/HCC) documented in this encounter [facility]* Diagnosis Non-seasonal allergic rhinitis, unspecified trigger documented in this encounter [facility] HealthcareEvaluation note* Diagnosis Severe protein-calorie malnutrition (CMS/HCC)- [...] of intractable epilepsy documented in this encounter [facility]Evaluation note* Diagnosis Corneal melt, left- Primary [facility] Diagnosis Corneal melt, left- Primary [facility] Diagnosis Severe protein-calorie malnutrition (CMS/HCC)- Primary [...] Tobacco use disorder documented in this encounter [facility] note* Diagnosis Corneal melt, left- Primary [facility]* Diagnosis Severe protein-calorie malnutrition (CMS/HCC)- Primary [...] (HCC) (CMS/HCC) Tobacco dependence Tobacco use disorder Abnormal screening mammogram- Primary documented in this encounter [facility] HealthcareEvaluation note* Diagnosis Severe protein-calorie malnutrition (CMS/HCC)- [...] cancer Special screening for malignant neoplasms, colon CP (cerebral palsy), spastic, diplegic (CMS/HCC)- Primary [...] (HCC) (CMS/HCC) Tobacco dependence Tobacco use disorder Severe protein-calorie malnutrition (CMS/HCC)- Primary Other severe protein-calorie malnutrition Underweight Current smoker Tobacco dependence Tobacco use disorder Abnormal screening mammogram documented in this encounter [facility]* [...] cancer Special screening for malignant neoplasms, colon CP (cerebral palsy), spastic, diplegic (CMS/HCC)- Primary [...] (HCC) (CMS/HCC) Tobacco dependence Tobacco use disorder Severe protein-calorie malnutrition (CMS/HCC)- Primary Other severe protein-calorie malnutrition Underweight Current smoker Tobacco dependence Tobacco use disorder Abnormal screening mammogram Mixed incontinence Mixed incontinence urge and stress (male)(female) documented in this encounter [facility]Evaluation note* Diagnosis Severe protein-calorie malnutrition (CMS/HCC)- [...] cancer Special screening for malignant neoplasms, colon CP (cerebral palsy), spastic, diplegic (CMS/HCC)- Primary [...] (HCC) (CMS/HCC) Tobacco dependence Tobacco use disorder Severe protein-calorie malnutrition (CMS/HCC)- Primary Other severe protein-calorie malnutrition Underweight Current smoker Tobacco dependence Tobacco use disorder Abnormal screening mammogram Paresthesia- Primary Disturbance of skin sensation Cervical radiculopathy Brachial neuritis or radiculitis nos 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 Lumbar radiculopathy Thoracic or lumbosacral neuritis or radiculitis, unspecified Cervical radiculopathy Brachial neuritis or radiculitis nos Lumbar radiculopathy Thoracic or lumbosacral neuritis or radiculitis, unspecified documented in this encounter [facility]* Diagnosis Severe protein-calorie malnutrition (HHS-HCC)- Primary Other severe protein-calorie malnutrition Seizure, absence (HCC) 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), spastic, diplegic (HCC) Diplegic infantile cerebral palsy Non-seasonal allergic rhinitis, unspecified trigger Lumbar paraspinal muscle spasm Other symptoms referable to back Depression, unspecified depression type Mixed incontinence Mixed incontinence urge and stress (male)(female) Lumbar spondylosis Lumbosacral spondylosis without myelopathy Urge incontinence of urine Urge incontinence Chronic neck and back pain CP (cerebral palsy), spastic, 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 Seasonal allergies Allergic rhinitis, cause unspecified Hyperlipidemia, unspecified hyperlipidemia type Anxiety Anxiety state, unspecified Encounter for wellness examination Screening mammogram for breast cancer Depression, unspecified depression type Impacted cerumen of right ear Impacted cerumen Screening for colon cancer Special screening for malignant neoplasms, colon CP (cerebral palsy), spastic, 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 Non-seasonal allergic rhinitis, unspecified trigger 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 Seasonal allergic rhinitis due to other allergic trigger Lumbar paraspinal muscle spasm Other symptoms referable to back Mixed incontinence Mixed incontinence urge and stress (male)(female) Depression, unspecified depression type Acquired spondylolisthesis of lumbosacral region Anxiety Anxiety state, unspecified Encounter for subsequent annual wellness visit (AWV) in Medicare patient- Primary CP (cerebral palsy), spastic, diplegic (HCC) Diplegic infantile cerebral palsy Seizure disorder (HCC) Unspecified epilepsy without mention of intractable epilepsy Severe protein-calorie malnutrition (HHS-HCC) Other severe protein-calorie malnutrition Underweight Anxiety Anxiety state, unspecified Mild episode of recurrent major depressive disorder Tobacco dependence Tobacco use disorder Severe protein-calorie malnutrition (HHS-HCC)- Primary Other severe protein-calorie malnutrition Underweight Current smoker Tobacco dependence Tobacco use disorder Abnormal screening mammogram Vitamin D deficiency documented in this encounter [facility]* Diagnosis Severe protein-calorie malnutrition (HHS-HCC)- Primary Other severe protein-calorie malnutrition Seizure, absence (HCC) 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), spastic, diplegic (HCC) Diplegic infantile cerebral palsy Non-seasonal allergic rhinitis, unspecified trigger Lumbar paraspinal muscle spasm Other symptoms referable to back Depression, unspecified depression type Mixed incontinence Mixed incontinence urge and stress (male)(female) Lumbar spondylosis Lumbosacral spondylosis without myelopathy Urge incontinence of urine Urge incontinence Chronic neck and back pain CP (cerebral palsy), spastic, 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 Seasonal allergies Allergic rhinitis, cause unspecified Hyperlipidemia, unspecified hyperlipidemia type Anxiety Anxiety state, unspecified Encounter for wellness examination Screening mammogram for breast cancer Depression, unspecified depression type Impacted cerumen of right ear Impacted cerumen Screening for colon cancer Special screening for malignant neoplasms, colon CP (cerebral palsy), spastic, 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 Non-seasonal allergic rhinitis, unspecified trigger 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 Seasonal allergic rhinitis due to other allergic trigger Lumbar paraspinal muscle spasm Other symptoms referable to back Mixed incontinence Mixed incontinence urge and stress (male)(female) Depression, unspecified depression type Acquired spondylolisthesis of lumbosacral region Anxiety Anxiety state, unspecified Encounter for subsequent annual wellness visit (AWV) in Medicare patient- Primary CP (cerebral palsy), spastic, diplegic (HCC) Diplegic infantile cerebral palsy Seizure disorder (HCC) Unspecified epilepsy without mention of intractable epilepsy Severe protein-calorie malnutrition (HHS-HCC) Other severe protein-calorie malnutrition Underweight Anxiety Anxiety state, unspecified Mild episode of recurrent major depressive disorder Tobacco dependence Tobacco use disorder Severe protein-calorie malnutrition (HHS-HCC)- Primary Other severe protein-calorie malnutrition Underweight Current smoker Tobacco dependence Tobacco use disorder Abnormal screening mammogram Severe protein-calorie malnutrition (HHS-HCC)- Primary Other severe protein-calorie malnutrition 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 Seizure disorder (HCC) Unspecified epilepsy without mention of intractable epilepsy Anxiety Anxiety state, unspecified Mild episode of recurrent major depressive disorder Tobacco dependence Tobacco use disorder documented in this encounter [facility]* Diagnosis Severe protein-calorie malnutrition (HHS-HCC)- Primary Other severe protein-calorie malnutrition Seizure, absence (HCC) 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), spastic, diplegic (HCC) Diplegic infantile cerebral palsy Non-seasonal allergic rhinitis, unspecified trigger Lumbar paraspinal muscle spasm Other symptoms referable to back Depression, unspecified depression type Mixed incontinence Mixed incontinence urge and stress (male)(female) Lumbar spondylosis Lumbosacral spondylosis without myelopathy Urge incontinence of urine Urge incontinence Chronic neck and back pain CP (cerebral palsy), spastic, 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 Seasonal allergies Allergic rhinitis, cause unspecified Hyperlipidemia, unspecified hyperlipidemia type Anxiety Anxiety state, unspecified Encounter for wellness examination Screening mammogram for breast cancer Depression, unspecified depression type Impacted cerumen of right ear Impacted cerumen Screening for colon cancer Special screening for malignant neoplasms, colon CP (cerebral palsy), spastic, 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 Non-seasonal allergic rhinitis, unspecified trigger 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 Seasonal allergic rhinitis due to other allergic trigger Lumbar paraspinal muscle spasm Other symptoms referable to back Mixed incontinence Mixed incontinence urge and stress (male)(female) Depression, unspecified depression type Acquired spondylolisthesis of lumbosacral region Anxiety Anxiety state, unspecified Encounter for subsequent annual wellness visit (AWV) in Medicare patient- Primary CP (cerebral palsy), spastic, diplegic (HCC) Diplegic infantile cerebral palsy Seizure disorder (HCC) Unspecified epilepsy without mention of intractable epilepsy Severe protein-calorie malnutrition (HHS-HCC) Other severe protein-calorie malnutrition Underweight Anxiety Anxiety state, unspecified Mild episode of recurrent major depressive disorder Tobacco dependence Tobacco use disorder Severe protein-calorie malnutrition (HHS-HCC)- Primary Other severe protein-calorie malnutrition Underweight Current smoker Tobacco dependence Tobacco use disorder Abnormal screening mammogram Severe protein-calorie malnutrition (HHS-HCC)- Primary Other severe protein-calorie malnutrition 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 Seizure disorder (HCC) Unspecified epilepsy without mention of intractable epilepsy Anxiety Anxiety state, unspecified Mild episode of recurrent major depressive disorder Tobacco dependence Tobacco use disorder Iron deficiency Disorders of iron metabolism documented in this encounter [facility] HealthcareEvaluation noteNo assessment information availableTrumbull [facility] Work Phone: Evaluation note* Diagnosis Severe protein-calorie malnutrition (HHS-HCC)- Primary Other severe protein-calorie malnutrition Seizure, absence (HCC) 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), spastic, diplegic (HCC) Diplegic infantile cerebral palsy Non-seasonal allergic rhinitis, unspecified trigger Lumbar paraspinal muscle spasm Other symptoms referable to back Depression, unspecified depression type Mixed incontinence Mixed incontinence urge and stress (male)(female) Lumbar spondylosis Lumbosacral spondylosis without myelopathy Urge incontinence of urine Urge incontinence Chronic neck and back pain CP (cerebral palsy), spastic, 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 Seasonal allergies Allergic rhinitis, cause unspecified Hyperlipidemia, unspecified hyperlipidemia type Anxiety Anxiety state, unspecified Encounter for wellness examination Screening mammogram for breast cancer Depression, unspecified depression type Impacted cerumen of right ear Impacted cerumen Screening for colon cancer Special screening for malignant neoplasms, colon CP (cerebral palsy), spastic, 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 Non-seasonal allergic rhinitis, unspecified trigger 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 Seasonal allergic rhinitis due to other allergic trigger Lumbar paraspinal muscle spasm Other symptoms referable to back Mixed incontinence Mixed incontinence urge and stress (male)(female) Depression, unspecified depression type Acquired spondylolisthesis of lumbosacral region Anxiety Anxiety state, unspecified Encounter for subsequent annual wellness visit (AWV) in Medicare patient- Primary CP (cerebral palsy), spastic, diplegic (HCC) Diplegic infantile cerebral palsy Seizure disorder (HCC) Unspecified epilepsy without mention of intractable epilepsy Severe protein-calorie malnutrition (HHS-HCC) Other severe protein-calorie malnutrition Underweight Anxiety Anxiety state, unspecified Mild episode of recurrent major depressive disorder Tobacco dependence Tobacco use disorder Severe protein-calorie malnutrition (HHS-HCC)- Primary Other severe protein-calorie malnutrition Underweight Current smoker Tobacco dependence Tobacco use disorder Abnormal screening mammogram Severe protein-calorie malnutrition (HHS-HCC)- Primary Other severe protein-calorie malnutrition 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 Seizure disorder (HCC) Unspecified epilepsy without mention of intractable epilepsy Anxiety Anxiety state, unspecified Mild episode of recurrent major depressive disorder Tobacco dependence Tobacco use disorder 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 documented in this encounter [facility] Diagnosis Severe protein-calorie malnutrition (HHS-HCC)- Primary Other severe protein-calorie malnutrition Seizure, absence (HCC) 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), spastic, diplegic (HCC) Diplegic infantile cerebral palsy Non-seasonal allergic rhinitis, unspecified trigger Lumbar paraspinal muscle spasm Other symptoms referable to back Depression, unspecified depression type Mixed incontinence Mixed incontinence urge and stress (male)(female) Lumbar spondylosis Lumbosacral spondylosis without myelopathy Urge incontinence of urine Urge incontinence Chronic neck and back pain CP (cerebral palsy), spastic, 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 Seasonal allergies Allergic rhinitis, cause unspecified Hyperlipidemia, unspecified hyperlipidemia type Anxiety Anxiety state, unspecified Encounter for wellness examination Screening mammogram for breast cancer Depression, unspecified depression type Impacted cerumen of right ear Impacted cerumen Screening for colon cancer Special screening for malignant neoplasms, colon CP (cerebral palsy), spastic, 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 Non-seasonal allergic rhinitis, unspecified trigger 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 Seasonal allergic rhinitis due to other allergic trigger Lumbar paraspinal muscle spasm Other symptoms referable to back Mixed incontinence Mixed incontinence urge and stress (male)(female) Depression, unspecified depression type Acquired spondylolisthesis of lumbosacral region Anxiety Anxiety state, unspecified Encounter for subsequent annual wellness visit (AWV) in Medicare patient- Primary CP (cerebral palsy), spastic, diplegic (HCC) Diplegic infantile cerebral palsy Seizure disorder (HCC) Unspecified epilepsy without mention of intractable epilepsy Severe protein-calorie malnutrition (HHS-HCC) Other severe protein-calorie malnutrition Underweight Anxiety Anxiety state, unspecified Mild episode of recurrent major depressive disorder Tobacco dependence Tobacco use disorder Severe protein-calorie malnutrition (HHS-HCC)- Primary Other severe protein-calorie malnutrition Underweight Current smoker Tobacco dependence Tobacco use disorder Abnormal screening mammogram Severe protein-calorie malnutrition (HHS-HCC)- Primary Other severe protein-calorie malnutrition 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 Seizure disorder (HCC) Unspecified epilepsy without mention of intractable epilepsy Anxiety Anxiety state, unspecified Mild episode of recurrent major depressive disorder Tobacco dependence Tobacco use disorder Anxiety- Primary Anxiety state, unspecified 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 Underweight Severe protein-calorie malnutrition (HHS-HCC) Other severe protein-calorie malnutrition Tobacco dependence Tobacco use disorder Mild episode of recurrent major depressive disorder Depression, unspecified depression type documented in this encounter [facility]* Diagnosis Severe protein-calorie malnutrition (HHS-HCC)- Primary Other severe protein-calorie malnutrition Seizure, absence (HCC) 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), spastic, diplegic (HCC) Diplegic infantile cerebral palsy Non-seasonal allergic rhinitis, unspecified trigger Lumbar paraspinal muscle spasm Other symptoms referable to back Depression, unspecified depression type Mixed incontinence Mixed incontinence urge and stress (male)(female) Lumbar spondylosis Lumbosacral spondylosis without myelopathy Urge incontinence of urine Urge incontinence Chronic neck and back pain CP (cerebral palsy), spastic, 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 Seasonal allergies Allergic rhinitis, cause unspecified Hyperlipidemia, unspecified hyperlipidemia type Anxiety Anxiety state, unspecified Encounter for wellness examination Screening mammogram for breast cancer Depression, unspecified depression type Impacted cerumen of right ear Impacted cerumen Screening for colon cancer Special screening for malignant neoplasms, colon CP (cerebral palsy), spastic, 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 Non-seasonal allergic rhinitis, unspecified trigger 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 Seasonal allergic rhinitis due to other allergic trigger Lumbar paraspinal muscle spasm Other symptoms referable to back Mixed incontinence Mixed incontinence urge and stress (male)(female) Depression, unspecified depression type Acquired spondylolisthesis of lumbosacral region Anxiety Anxiety state, unspecified Encounter for subsequent annual wellness visit (AWV) in Medicare patient- Primary CP (cerebral palsy), spastic, diplegic (HCC) Diplegic infantile cerebral palsy Seizure disorder (HCC) Unspecified epilepsy without mention of intractable epilepsy Severe protein-calorie malnutrition (HHS-HCC) Other severe protein-calorie malnutrition Underweight Anxiety Anxiety state, unspecified Mild episode of recurrent major depressive disorder Tobacco dependence Tobacco use disorder Severe protein-calorie malnutrition (HHS-HCC)- Primary Other severe protein-calorie malnutrition Underweight Current smoker Tobacco dependence Tobacco use disorder Abnormal screening mammogram Severe protein-calorie malnutrition (HHS-HCC)- Primary Other severe protein-calorie malnutrition 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 Seizure disorder (HCC) Unspecified epilepsy without mention of intractable epilepsy Anxiety Anxiety state, unspecified Mild episode of recurrent major depressive disorder Tobacco dependence Tobacco use disorder Anxiety- Primary Anxiety state, unspecified 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 Underweight Severe protein-calorie malnutrition (HHS-HCC) Other severe protein-calorie malnutrition Tobacco dependence Tobacco use disorder Mild episode of recurrent major depressive disorder Depression, unspecified depression type Vitamin D deficiency, unspecified documented in this encounter [facility]* Diagnosis Severe protein-calorie malnutrition (HHS-HCC)- Primary Other severe protein-calorie malnutrition Seizure, absence (HCC) 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), spastic, diplegic (HCC) Diplegic infantile cerebral palsy Non-seasonal allergic rhinitis, unspecified trigger Lumbar paraspinal muscle spasm Other symptoms referable to back Depression, unspecified depression type Mixed incontinence Mixed incontinence urge and stress (male)(female) Lumbar spondylosis Lumbosacral spondylosis without myelopathy Urge incontinence of urine Urge incontinence Chronic neck and back pain CP (cerebral palsy), spastic, 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 Seasonal allergies Allergic rhinitis, cause unspecified Hyperlipidemia, unspecified hyperlipidemia type Anxiety Anxiety state, unspecified Encounter for wellness examination Screening mammogram for breast cancer Depression, unspecified depression type Impacted cerumen of right ear Impacted cerumen Screening for colon cancer Special screening for malignant neoplasms, colon CP (cerebral palsy), spastic, 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 Non-seasonal allergic rhinitis, unspecified trigger 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 Seasonal allergic rhinitis due to other allergic trigger Lumbar paraspinal muscle spasm Other symptoms referable to back Mixed incontinence Mixed incontinence urge and stress (male)(female) Depression, unspecified depression type Acquired spondylolisthesis of lumbosacral region Anxiety Anxiety state, unspecified Encounter for subsequent annual wellness visit (AWV) in Medicare patient- Primary CP (cerebral palsy), spastic, diplegic (HCC) Diplegic infantile cerebral palsy Seizure disorder (HCC) Unspecified epilepsy without mention of intractable epilepsy Severe protein-calorie malnutrition (HHS-HCC) Other severe protein-calorie malnutrition Underweight Anxiety Anxiety state, unspecified Mild episode of recurrent major depressive disorder Tobacco dependence Tobacco use disorder Severe protein-calorie malnutrition (HHS-HCC)- Primary Other severe protein-calorie malnutrition Underweight Current smoker Tobacco dependence Tobacco use disorder Abnormal screening mammogram Severe protein-calorie malnutrition (HHS-HCC)- Primary Other severe protein-calorie malnutrition 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 Seizure disorder (HCC) Unspecified epilepsy without mention of intractable epilepsy Anxiety Anxiety state, unspecified Mild episode of recurrent major depressive disorder Tobacco dependence Tobacco use disorder Anxiety- Primary Anxiety state, unspecified 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 Underweight Severe protein-calorie malnutrition (HHS-HCC) Other severe protein-calorie malnutrition Tobacco dependence Tobacco use disorder Mild episode of recurrent major depressive disorder Depression, unspecified depression type 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 documented in this encounter [facility] N[facility]ative - Reported* Type Description Date Medical History seizures Medical History gross motor disorder/development al anomaly Medical History cerebral palsy Surgical History eyes Surgical History lungs [employer] Other Reason for referral (narrative)No reason for referral information [facility] Work Phone: Summary Purpose Family History Relationship Condition Age at Onset Recorded Date/T melanie maternal grandmother Diabetes mellitus Unknown Advance Directives Advance Directive Response Recorded Date/ Time Advance Directives No January 04, 2025 7:58am Chief Complaint and Reason for Visit Chief Complaint Admit Date wgt loss/malnutrition January 17, 2025 11: 45am wgt loss/malnutrition January 17, 2025 1:3 5pm Amb Documentation January 29, 2025 3:57p m R92.8 March 06, 2025 3:38p m Chief Complaint Admit Date Amb Documentation January 29, 2025 3:57p m R92.8 April 19, 2025 11 :27am Additional Source Comments INFORMATION SOURCE (unrecogn ized section and content) DATE CREATED AUTHOR 03/17/2021 [facility] DATE CREATED AUTHOR AUTHOR'S ORGANIZ ATION 07/17/2021 [facility] DATE CREATED AUTHOR AUTHOR'S ORGANIZ ATION 11/21/2021 [facility] DATE CREATED AUTHOR AUTHOR'S ORGANIZ ATION 08/25/2022 [facility] DATE CREATED AUTHOR AUTHOR'S ORGANIZ ATION 12/15/2024 [facility] DATE CREATED AUTHOR AUTHOR'S ORGANIZ ATION 04/11/2025 [facility] DATE CREATED AUTHOR AUTHOR'S ORGANIZ ATION 04/25/2025 [facility] REASON FOR VISIT (unrecogniz ed section and [...] Comments Sterile melt, left eye Follow up Reason Comments Corneal melt, left eye Reason Comments Weight Check Reason Comments Weight Check Reason Comments Severe protein-calorie malnutrition Source Comments (unrecognize d section and content) In the event this informatio n is protected by the Federal Confidentiality of Alcohol and Drug Abuse Patient Records regulations: The Federal rules restrict any use of the information to criminally investigate or prosecute any alcohol or drug abuse patient.[facility] the event this information is protected by the Federal Confidentiality of Alcohol and Drug Abuse Patient Records regulations: The Federal rules restrict any use of the information to criminally investigate or prosecute any alcohol or drug abuse patient.[facility] HospitalIn the event this information is protected by the Federal Confidentiality of Alcohol and Drug Abuse Patient Records regulations: The Federal rules restrict any use of the information to criminally investigate or prosecute any alcohol or drug abuse patient.[facility] HospitalIn the event this information is protected by the Federal Confidentiality of Alcohol and Drug Abuse Patient Records regulations: The Federal rules restrict any use of the information to criminally investigate or prosecute any alcohol or drug abuse patient.[facility] the event this information is protected by the Federal Confidentiality of Alcohol and Drug Abuse Patient Records regulations: The Federal rules restrict any use of the information to criminally investigate or prosecute any alcohol or drug abuse patient.[facility] HospitalIn the event this information is protected by the Federal Confidentiality of Alcohol and Drug Abuse Patient Records regulations: The Federal rules restrict any use of the information to criminally investigate or prosecute any alcohol or drug abuse patient.[facility] HospitalIn the event this information is protected by the Federal Confidentiality of Alcohol and Drug Abuse Patient Records regulations: The Federal rules restrict any use of the information to criminally investigate or prosecute any alcohol or drug abuse patient.[facility] HospitalIn the event this information is protected by the Federal Confidentiality of Alcohol and Drug Abuse Patient Records regulations: The Federal rules restrict any use of the information to criminally investigate or prosecute any alcohol or drug abuse patient.[facility] HospitalIn the event this information is protected by the Federal Confidentiality of Alcohol and Drug Abuse Patient Records regulations: The Federal rules restrict any use of the information to criminally investigate or prosecute any alcohol or drug abuse patient.[facility] Care Teams (unrecognized sec tion and content) Team Status: Active Member Role Status Dates Susan Harden Primary Care Provider Active Team Status: Active Member Role Status Dates NON STAFF Primary Care Provider Active Start: January 29, 2025 JOHN Asif Attending Provider Active S tart: January 29, 2025 Team Status: Inactive Member Role Status Dates Susan Harden Primary Care Provider Active Sta rt: April 19, 2025 End: April 19, 2025 Susan Harden Attending Provider Active Start: April 19, 2025 End: April 19, 2025 Still Photographer Relationship Specialty Start Date End Date Johanne Enriquez CNP [address] [facility] [address] [place] [address] PCP - General Internal Medicine 08/20/20 Still Photographer Relationship Specialty Start Date End Date Johanne Enriquez CNP [address] [facility] [address] [place] [address] PCP - General Internal Medicine 08/20/20 Still Photographer Relationship Specialty Start Date End Date Shaikh Sauceda MD PCP - General Internal Medicine 08/30/22 Still Photographer Relationship Specialty Start Date End Date Michael Mulligan MD [address] [place] [address] PCP - General Family Medicine 03/29/24 Damir Berger NP [address] [place] [address] Nurse Practitioner Family Medicine 03/29/24 Still Photographer Relationship Specialty Start Date End Date Michael Mulliagn MD [address] [place] [address] PCP - General Family Medicine 03/29/24 Damir Berger NP [address] [place] [address] Nurse Practitioner Family Medicine 03/29/24 Still Photographer Relationship Specialty Start Date End Date Michael Mulligan MD [address] [place] [address] PCP - General Family Medicine 03/29/24 Shaikh Sauceda MD [address] [place] [address] PCP - [facility] 05/30/24 Damir Berger NP [address] [place] [address] Nurse Practitioner Family Medicine 03/29/24 Still Photographer Relationship Specialty Start Date End Date Michael Mulligan MD [address] [place] [address] PCP - General Family Medicine 03/29/24 Shaikh Sauceda MD [address] [place] [address] PCP - [facility] 05/30/24 Damir Berger NP [address] [place] [address] Nurse Practitioner Family Medicine 03/29/24 Still Photographer Relationship Specialty Start Date End Date Michael Mulligan MD [address] [place] [address] PCP - General Family Medicine 03/29/24 Damir Berger NP [address] [place] [address] Nurse Practitioner Family Medicine 03/29/24 Still Photographer Relationship Specialty Start Date End Date Michael Mulligan MD [address] [place] [address] PCP - General Family Medicine 03/29/24 Damir Berger NP [address] [place] [address] Nurse Practitioner Family Medicine 03/29/24 Still Photographer Relationship Specialty Start Date End Date Michael Mulligan MD [address] [place] [address] PCP - General Family Medicine 03/29/24 Damir Berger NP [address] [place] [address] Nurse Practitioner Family Medicine 03/29/24 Still Photographer Relationship Specialty Start Date End Date Michael Mulligan MD [address] [place] [address] PCP - General Family Medicine 03/29/24 Damir Berger NP [address] [place] [address] Nurse Practitioner Family Medicine 03/29/24 Still Photographer Relationship Specialty Start Date End Date Michael Mulligan MD [address] [place] [address] PCP - General Family Medicine 03/29/24 Damir Berger NP [address] [place] [address] Nurse Practitioner Family Medicine 03/29/24 Still Photographer Relationship Specialty Start Date End Date Michael Mulligan MD [address] [place] [address] PCP - General Family Medicine 03/29/24 Shaikh Sauceda MD [address] [place] [address] PCP - [facility] 05/30/24 Damir Berger NP [address] [place] [address] Nurse Practitioner Family Medicine 03/29/24 Still Photographer Relationship Specialty Start Date End Date Michael Mulligan MD [address] [place] [address] PCP - General Family Medicine 03/29/24 Shaikh Sauceda MD [address] [place] [address] PCP [facility] 05/30/24 Damir Berger NP [address] [place] [address] Nurse Practitioner Family Medicine 03/29/24 Still Photographer Relationship Specialty Start Date End Date Michael Mulligan MD [address] [place] [address] PCP - General Family Medicine 03/29/24 Shaikh Sauceda MD [address] [place] [address] PCP [facility] 05/30/24 Damir Berger, MARKUS [address] [place] [address] Nurse Practitioner Family Medicine 03/29/24 Still Photographer Relationship Specialty Start Date End Date Michael Mulligan MD [address] [place] [address] PCP - General Family Medicine 03/29/24 Shaikh Sauceda MD [address] [place] [address] PCP - [facility] 05/30/24 Damir Berger NP [address] [place] [address] Nurse Practitioner Family Medicine 03/29/24 Still Photographer Relationship Specialty Start Date End Date Michael Mulligan MD [address] [place] [address] PCP - General Family Medicine 03/29/24 Shaikh Sauceda MD [address] [place] [address] PCP - [facility] 05/30/24 Damir Berger NP [address] [place] [address] Nurse Practitioner Family Medicine 03/29/24 Still Photographer Relationship Specialty Start Date End Date Johanne Enriquez CNP PCP - General Internal Medicine 08/20/20 Still Photographer Relationship Specialty Start Date End Date Johanne Enriquez CNP PCP - General Internal Medicine 08/20/20 Still Photographer Relationship Specialty Start Date End Date Johanne Enriquez CNP PCP - General Internal Medicine 08/20/20 Still Photographer Relationship Specialty Start Date End Date Johanne Enriquez CNP PCP - General Internal Medicine 08/20/20 Still Photographer Relationship Specialty Start Date End Date Michael Mulligan MD [address] [place] [address] PCP - General Family Medicine 03/29/24 Shaikh Sauceda MD [address] [place] [address] PCP - [facility] 05/30/24 Damir Berger NP [address] [place] [address] Nurse Practitioner Family Medicine 03/29/24 Still Photographer Relationship Specialty Start Date End Date Michael Mulligan MD [address] [place] [address] PCP - General Family Medicine 03/29/24 Shaikh Sauceda MD [address] [place] [address] PCP - [facility] 05/30/24 Damir Berger, MARKUS [address] [place] [address] Nurse Practitioner Family Medicine 03/29/24 Still Photographer Relationship Specialty Start Date End Date Johanne Enriquez CNP PCP - General Internal Medicine 08/20/20 Still Photographer Relationship Specialty Start Date End Date Johanne Enriquez CNP PCP - General Internal Medicine 08/20/20 Still Photographer Relationship Specialty Start Date End Date Johanne Enriquez CNP PCP - General Internal Medicine 08/20/20 Still Photographer Relationship Specialty Start Date End Date Michael Mulligan MD [address] [place] [address] PCP - General Family Medicine 03/29/24 Shaikh Sauceda MD [address] [place] [address] PCP - [facility] 05/30/24 Damir Berger NP [address] [place] [address] Nurse Practitioner Family Medicine 03/29/24 Eric Leslie MA Family Medicine 11/10/24 Still Photographer Relationship Specialty Start Date End Date Michael Mulligan MD [address] [place] [address] PCP - General Family Medicine 03/29/24 Shaikh Sauceda MD [address] [place] [address] PCP - [facility] 05/30/24 Damir Berger NP [address] [place] [address] Nurse Practitioner Family Medicine 03/29/24 Eric Leslie MA Family [facility] 11/10/24 Still Photographer Relationship Specialty Start Date End Date Naderer, Michael, MD [address] [place] [address] PCP - General Family Medicine 03/29/24 Shaikh Sauceda MD [address] [place] [address] PCP - [facility] 05/30/24 Damir Berger NP [address] [place] [address] Nurse Practitioner Family Medicine 03/29/24 Eric Leslie MA Family [facility] 11/10/24 Still Photographer Relationship Specialty Start Date End Date Michael Mulligan MD [address] [place] [address] PCP - General Family Medicine 03/29/24 Shaikh Sauceda MD [address] [place] [address] PCP [facility] 05/30/24 Damir Berger NP [address] [place] [address] Nurse Practitioner Family Medicine 03/29/24 Eric Leslie MA [facility] 11/10/24 Still Photographer Relationship Specialty Start Date End Date Michael Mulligan MD [address] [place] [address] PCP - General Family Medicine 03/29/24 Shaikh Sauceda MD [address] [place] [address] PCP - [facility] 05/30/24 Daimr Berger NP [address] [place] [address] Nurse Practitioner Family Medicine 03/29/24 Eric Leslie MA Family [facility] 11/10/24 Still Photographer Relationship Specialty Start Date End Date Michael Mulligan MD [address] [place] [address] PCP - General [facility] 03/29/24 Shaikh Sauceda MD [address] [place] [address] PCP [facility] 05/30/24 Damir Berger NP [address] [place] [address] Nurse Practitioner [facility] 03/29/24 Eric Leslie MA [facility] [facility] 11/10/24 Still Photographer Relationship Specialty Start Date End Date Michael Mulligan MD [address] [place] [address] PCP - General [facility] 03/29/24 Shaikh Sauceda MD [address] [place] [address] PCP [facility] 05/30/24 Damir Berger NP [address] [place] [address] Nurse Practitioner Family Medicine 03/29/24 Eric Leslie MA [facility] 11/10/24 Still Photographer Relationship Specialty Start Date End Date Michael Mulligan MD [address] [place] [address] PCP - [facility] 03/29/24 Shaikh Sauceda MD [address] [place] [address] PCP - [facility] 05/30/24 Damir Berger, TRADE MANAGER [address] [place] [address] Nurse Practitioner [facility] 03/29/24 Eric Leslie MA [address] [place] [address] [facility] 11/10/24 Still Photographer Relationship Specialty Start Date End Date Michael Mulligan MD [address] [place] [address] PCP [facility] 03/29/24 Shaikh Sauceda MD [address] [place] [address] PCP [facility] 05/30/24 Damir Berger, TRADE MANAGER [address] [place] [address] Nurse Practitioner Family [facility] 03/29/24 Eric Leslie MA [address] [place] [address] Family [facility] 11/10/24 Still Photographer Relationship Specialty Start Date End Date Michael Mulligan MD [address] [place] [address] PCP - General Family Medicine 03/29/24 Shaikh Sauceda MD [address] [place] [address] PCP - [facility] 05/30/24 Damir Berger NP [address] [place] [address] Nurse Practitioner Family Medicine 03/29/24 Eric Leslie MA [address] [place] [address] Family Medicine 11/10/24 Team Status: Inactive Member Role Status Dates Kassidy Temple , DO Attending Provider Active St art: January 17, 2025 End: January 17, 2025 NON STAFF Primary Care Provider Active Start: January 17, 2025 End: January 17, 2025 Team Status: Active Member Role Status Dates Kassidy Temple , DO Attending Provider Active St art: January 17, 2025 Kassidy L Ly , DO Other Provider Active Start: January 17, 2025 NON STAFF Primary Care Provider Active Start: January 17, 2025 Team Status: Inactive Member Role Status Dates Susan Harden Primary Care Provider Active Sta rt: March 06, 2025 End: March 06, 2025 Susan Harden Attending Provider Active Start: March 06, 2025 End: March 06, 2025 Still Photographer Relationship Specialty Start Date End Date Michael Mulligan MD [address] [place] [address] PCP - General Family Medicine 03/29/24 Shaikh Sauceda MD [address] [place] [address] PCP - [facility] 05/30/24 Damir Berger NP [address] [place] [address] Nurse Practitioner [facility] 03/29/24 Eric Leslie, [place] [address] [place] [address] [facility] 11/10/24 Still Photographer Relationship Specialty Start Date End Date Michael Mulligan MD [address] [place] [address] PCP - [facility] 03/29/24 Shaikh Sauceda MD [address] [place] [address] [facility] 05/30/24 Damir Berger NP [address] [place] [address] Nurse Practitioner [facility] 03/29/24 Eric Leslie, [place] [address] [place] [address] [facility] 11/10/24 Still Photographer Relationship Specialty Start Date End Date Michael Mulligan MD [address] [place] [address] PCP - General [facility] 03/29/24 Shaikh Sauceda MD [address] [place] [address] PCP [facility] 05/30/24 Damir Berger NP [address] [place] [address] Nurse Practitioner Family Medicine 03/29/24 Eric Leslie MA [address] [place] [address] Family [facility] 11/10/24 Still Photographer Relationship Specialty Start Date End Date Michael Mulligan MD [address] [place] [address] PCP - General Family Medicine 03/29/24 Shaikh Sauceda MD [address] [place] [address] PCP - [facility] 05/30/24 Damir Berger NP [address] [place] [address] Nurse Practitioner Family Medicine 03/29/24 Eric Leslie MA [address] [place] [address] [facility] 11/10/24 Still Photographer Relationship Specialty Start Date End Date Michael Mulligan MD PCP - General [facility] 03/29/24 Shaikh Sauceda MD [address] [place] [address] PCP - [facility] 05/30/24 Damir Berger NP Nurse Practitioner Family Medicine 03/29/24 Goals (unrecognized section and content) Goals may be documented in a n alternate section FOR RECORDS PERTAINING TO PATIENTS WHO ARE [...] BE BASED ON THE PRIMARY CLINICAL RECORDS. [facility] eOriginal [facility]. provides no warranty or guarantee of the accuracy or completeness of information in this document.
--- OUTSIDE RECORDS SUMMARY | 2025-06-09 15:47 | XMS_ITS | Clinical Summary ---
Author Organization [facility] Address [address] [place] [address] Phone Care Team Providers Care Career Professional Name Role Phone Unavailable Primary Care Provider Unavailabl e Encounters Date Type Department Care Team Description 06/05/2025 Lab Requisition [facility] [address] [place] [address] Aaron García MD Perforated corneal ulcer, left eye from Last 3 Months Social History Tobacco Use Types Packs/Day Years Used Date Smoking Tobacco: Never Assessed Comments Unknown Sex and Gender Information Value Date Recorded Sex Assigned at Not on file Legal Sex Female 7:41 AM EDT Gender Identity Not on file Sexual Orientation Not on file Plan of Treatment Health Maintenance Due Date Last Done Comments CT Colonography 1979 Colonoscopy 1979 Colorectal Cancer Screening 1979 FIT-DNA (Cologuard) 1979 FIT 1979 HIV Screening 1979 Lipid Panel 1979 Sigmoidoscopy 1979 Welcome to Medicare Visit 1979 MMR Vaccines (1 of 1 - Stand noble series) 1980 Hepatitis C Screening 1997 Hepatitis B Vaccines (1 of 3 - 19+ 3-dose series) 1998 Cervical Cancer Screening 2000 HPV/Cotest 2000 Pap Smear 2000 DTaP/Tdap/Td Vaccines (1 - Tdap) 2001 Mammogram 2019 COVID-19 Vaccine ( - 2023-2 5 season) 2025 Influenza Vaccine (#1) 2025 Zoster Vaccines (1 of 2) 2029 HIB Vaccines Aged Out No longer eligi ble based on patient's age to complete this topic HPV Vaccines Aged Out No longer eligi ble based on patient's age to complete this topic Hepatitis A Vaccines Aged Out No long er eligible based on patient's age to complete this topic IPV Vaccines Aged Out No longer eligi ble based on patient's age to complete this topic Meningococcal Vaccine Aged Out No conrado judi eligible based on patient's age to complete this topic Pneumococcal Vaccine: Pediat rics and At-Risk Adult Patients Aged Out No longer prieto gible based on patient's age to complete this topic Rotavirus Vaccines Aged Out No longer eligible based on patient's age to complete this topic Insurance MEDICARE PART A AND B MEDICAID , [address] [place] [address] MEDICARE PART A AND B MEDICAID
--- OUTSIDE RECORDS SUMMARY | 2025-06-09 15:47 | XMS_ITS | Encounter Summary ---
Author Organization [facility] tem Address [id number] [place] [address] Care Team Providers Care Ampoule Inspector Name Role Phone Johanne Allen APRN-CARMEN Primary Care Provider [phone] Reason for Visit * Reason Comments Med Refill Encounter Details Date Type Department Care Team (Late st Contact Info) Description 09/12/2020 Refill [facility] [address] [place] [phone] Johanne Allen APRN-CNP [address] [facility] [address] [place] [address] Seasonal allergies Social History Tobacco Use Types [...] unspecified documented in this encounter Care Teams Ampoule Inspector Relationship Specialty Start Date End Date Johanne Allen APRN-BAND TIER [address] [place] [address] PCP - General Internal Medicine 02/23/20 documented as of this encounter
--- OUTSIDE RECORDS SUMMARY | 2025-06-09 15:47 | XMS_ITS | Encounter Summary ---
Author Organization [facility] Address [address] [place] [address] Care Team Providers Care Literary Agent Name Role Phone Johanne Allen COOK PIE Primary Care Provider [phone] Susan Harden COOK PIE Unavailable [phone] Source Comments In the event this information is protected by the Federal Confidentiality of Alcohol and Drug AbusePatient Records regulations: The Federal rules restrict any use of the information to criminally investigate or prosecute any alcohol or drug abuse patient.[facility] Encounter Details Date Type Department Care Team (Late st Contact Info) Description 10/31/2024 Ophth Exam Ophthalmology [address] [address] Pepito Hernandez MD [address] [place] [address] Social History Tobacco Use Types Packs/Day Years [...] is lower risk 7 11/01/2024 Data from: https://www.neighborhoodatlas.medicine.[facility].edu/. Last address used for calculation [address] [...] Description 06/25/2025 3:00 PM EDT Office Visit [facility] [address] [place] [address] Saranya Dee MD [address] [place], [place] [phone] CP (Cerebral Palsy) documented as of this encounter Visit Diagnoses Not on filedocumented in this encounter Care Teams Literary Agent Relationship Specialty Start Date End Date Johanne Allen CNP PCP - General Internal Medicine 08/20/20 Susan Harden CNP [address] [place] [address] Family Medicine 04/13/25 documented as of this encounter
--- OUTSIDE RECORDS SUMMARY | 2025-06-09 15:47 | XMS_ITS | Encounter Summary ---
Author Organization [employer] [facility] tem Address [id number] [address] [place] [address] Care Team Providers Care Gas Mask Assembler Name Role Phone Johanne Allen LAVENDER FARM WORKER-PROGRAM COORDINATOR Primary Care Provider [phone]- [phone] Reason for Visit * Reason Onset Date Comments Med Refill 07/02/2020 Encounter Details Date Type Department Care Team (Late st Contact Info) Description 07/02/2020 Telephone [facility] [address] [facility] [address] [place] [phone] Pauline Wills APRN-CN [address] [place] [address] Med Refill Social History Tobacco Use Types Packs/Day Years [...] * Telephone Encounter - Haritha Khan - 07/02/2020 9:13 AM EST Pt needs the script for her Depends [facility] documented in this encounter Plan of Treatment Not on file documented as of this encounter Visit Diagnoses Not on filedocumented in this encounter Care Teams Gas Mask Assembler Relationship Specialty Start Date End Date Johanne Allen APRN-CARMEN [address] [place] [address] PCP - General Internal Medicine 02/23/20 documented as of this encounter
--- NOTE | 2025-06-09 16:03 | XR_ITS ---
The [address] [address] Patient Name: LOBO BETANCOURT MRN: [id number] date: 1980 Sex: F Assigned Patient Location: ER Current Patient Location: ED.MAIN Accession/Order Number: [id number] Exam Date: 06/09/2025 16:15 Report Date: 06/09/2025 17:33 At the request of: DAT CHRISTIANSON Procedure: XR elbow RT min 3V 3 views of the right elbow CLINICAL HISTORY: Elbow pain and swelling, Fall COMPARISON: None FINDINGS: [id number] predominantly posterior elbow soft tissue swelling. There is a lucency involving the radial head neck junction favored to represent a vascular groove as it does not appear to extend to the articular surface. Otherwise no fracture or dislocation identified. XR/XR elbow RT min 3V IMPRESSION: Soft tissues swelling. No definite evidence of acute fracture dislocation. Impression dictated by: Parminder Nelson M.D. 06/09/2025 5:33 PM Dictation Location: [place] [address] Electronically authenticated by: [id number] Y Date: 06/09/2025 17:33
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
== END 2025-06-09 18:11 | disposition home or self-care (01) ==
PROVIDERS: Emergency Provider Emergency Medicine; PCP Nurse Practitioner
DX: M70.21 Olecranon bursitis, right elbow (principal); M25.471 Effusion, right ankle; Z90.01 Acquired absence of eye
CPT/HCPCS: 73080; 99283

== ENCOUNTER 2025-07-12 09:49 | Outpatient (RCR) | payer MEDICARE, MEDICAID, SELFPAY | END 2025-07-25 06:51 | disposition home or self-care (01) | LOC: PT 09:49 | PROVIDERS: PCP Nurse Practitioner | DX: G80.1 Spastic diplegic cerebral palsy (principal) | CPT/HCPCS: 97110; 97162 ==